=== PATIENT | female | born 1940 | race Caucasian/White ===

== ENCOUNTER 2016-12-19 19:13 | Observation (INO) | payer MEDICARE, OTHER ==
[2016-12-19] MEDS ORDERED: Morphine 2 MG/ML Syringe IVPUSH ONE ×2 (19:45→20:53)
[2016-12-19] MEDS ORDERED: Sodium Chloride 0.9% 10 ML Syringe FLUSH PRN (19:45)
--- NOTE | 2016-12-19 19:51 | EDM.PDOC ---
ED HPI Trauma - General Chief Complaint: Upper Extremity Injury/Pain Stated Complaint: fall, left shoulder pain Time Seen by Provider: 12/19/16 19:22 Source: Reports: Patient, Family, RN, RN notes reviewed History Limitations: Reports: No limitations - History of Present Illness INITIAL COMMENTS - FREE TEXT/NARRATIVE: Patient presents emergency room at [facility] after she fell in her driveway. The patient states she was lifting a tote out of her car, as she turned around to close the car door, she believes that she fell. The patient remembers taking the tote out of the car and closing the door, but then only remembers laying on the ground. The patient denies any head injury. The patient is not sure if she lost any consciousness. The patient states she did fall a couple weeks ago and injured her right shoulder. The patient currently complains of left shoulder pain and left knee pain. The patient is unable to participate in exam of the left shoulder due to 2 significant pain. The patient states she normally ambulates without any problems. The patient does have a history of a left knee replacement.Patient denies any headaches. Patient denies any visual field disturbances. Symptom Onset Date: 12/19/16 Occurred When: just prior to arrival Occurred Where: home Method of Injury: fall Severity: moderate Pain/Injury Location: Reports: upper extremity, left Consciousness: Reports: remembers coming to hosp, unsure Allergies/ADRs: Allergies NSAIDS (Non-Steroidal Anti-Inflamma Adverse Reaction (Verified 12/19/16 19:23) Stomach Upset elevates BP - use sparingly rosuvastatin calcium [From Crestor] Adverse Reaction (Verified 12/19/16 19:23) Muscle Aches Home Medications: Ambulatory Orders Albuterol/Ipratropium [Combivent Respimat] 1 puff INH QID PRN 12/30/13 [ Confirmed 12/19/16] Budesonide/Formoterol [Symbicort 160-4.5 MCG] 2 puff INH BID 12/30/13 [ Confirmed 12/19/16] Clobetasol [Temovate 0.05% Oint] 1 applic TOP BID PRN 12/30/13 [Confirmed ] FLUoxetine [PROzac] 60 mg PO DAILY 12/30/13 [Confirmed 12/19/16] Fluticasone Propionate [Flonase] 2 spray NASBOTH BID 12/30/13 [Confirmed ] Metoprolol Succinate [Toprol XL] 25 mg PO DAILY 12/30/13 [Confirmed 12/19/16] Simvastatin [Zocor] 20 mg PO BEDTIME 12/30/13 [Confirmed 12/19/16] Warfarin [Coumadin] 2.5 mg PO DAILY 12/30/13 [Confirmed 12/19/16] traZODone 100 mg PO BEDTIME 12/30/13 [Confirmed 12/19/16] Aspirin [Halfprin] 81 mg PO DAILY 07/15/15 [Confirmed 12/19/16] Calcium Carbonate [Tums] 1,000 mg PO DAILY PRN 07/15/15 [Confirmed 12/19/16] Calcium Carbonate/Vitamin D3 [Calcium 600-Vit D3 800 Tablet] 1 each PO DAILY 06/19 [Confirmed 12/19/16] Cholecalciferol (Vitamin D3) [Vitamin D3] 5,000 unit PO DAILY 07/15/15 [ Confirmed 12/19/16] Omeprazole 40 mg PO DAILY 07/15/15 [Confirmed 12/19/16] Triamcinolone Acetonide [Kenalog 0.1% Crm] 1 applic TOP BID PRN 07/15/15 [ Confirmed 12/19/16] Triamterene/Hydrochlorothiazid [Triamterene-HCTZ 75-50 MG] 0.5 tab PO DAILY 06/19 [Confirmed 12/19/16] traMADol HCl [Ultram] 50 mg PO Q6H PRN 01/26/16 [Confirmed 12/19/16] Rayne-3 Acid Ethyl Esters [Lovaza] 2 gm PO BID 06/29/16 [Confirmed 12/19/16] Past Medical History HEENT History: Reports: Allergic rhinitis, Cataract Other HEENT History: pinguecula. posterior vitreous detachment. presbyopia. myopia Cardiovascular History: Reports: Arrhythmia, CAD, High cholesterol, Hypertension Other Cardiovascular History: milde diastolic dysfunction. valvular heart disease. chronic anticoagulation. mild diastolic dysfunction. oxygen dependent. 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 pain in joint, shoulder region Neurological History: Reports: None Other Neuro History: ulnar neuropathy, left. numbness of finger. chronic pain syndrome Psychiatric History: Reports: Anxiety, Depression Other Psychiatric History: hx of alcoholism. morbid obesity. insomnia Endocrine/Metabolic History: Reports: Obesity/BMI 30+ Other Endocrine/Metabolic History: impaired fasting glucose Hematologic History: Reports: None Oncologic (Cancer) History: Reports: None Dermatologic History: Reports: None - Past Surgical History Head Surgeries/Procedures: Reports: None HEENT Surgical History: Reports: Cataract surgery Cardiovascular Surgical History: Reports: None Respiratory Surgical History: Reports: None GI Surgical History: Reports: Colonoscopy Other GI Surgeries/Procedures: colon surgery. hemicolectomy (twisted bowel) Female Surgical History: Reports: Hysterectomy, Tubal ligation Other Female Surgeries/Procedures: bladder repair (open) 1996 Endocrine Surgical History: Reports: None Neurological Surgical History: Reports: None Other Neurological Surgeries/Procedures: ulnar nerolysis Musculoskeletal Surgical History: Reports: Knee replacement Other Musculoskeletal Surgeries/Procedures:: breast surgery Oncologic Surgical History: Reports: Biopsy of breast Dermatological Surgical History: Reports: None Social & Family History - Tobacco Use Smoking Status *Q: Former Smoker Years of Tobacco use: 10 Used Tobacco, but Quit: Yes Month Tobacco Last Used: 41 years ago Second Hand Smoke Exposure: Yes - Alcohol Use Days Per Week of Alcohol Use: 0 - Recreational Drug Use Recreational Drug Use: No Review of Systems - Review of Systems Review Of Systems: See Below Constitutional: Denies: chills, fever, weakness Respiratory: Denies: Shortness of Breath, Cough Cardiovascular: Denies: chest pain, palpitations Musculoskeletal: Reports: shoulder pain, joint pain (Left knee), joint swelling (Left knee) Skin: Reports: bruising (Left knee) Neurological: Denies: Headache, Numbness, Paresthesia, Tingling Trauma Exam - Physical Exam Exam: See Below Exam Limited By: No limitations General Appearance: Reports: alert, no apparent distress Head: Reports: atraumatic, normocephalic Eyes: bilateral eye: EOMI, normal inspection, PERRL Ears: Reports: normal external exam, normal canal, hearing grossly normal, normal TMs Nose: Reports: normal inspection, normal mucousa, no blood Throat/Mouth: Reports: Normal inspection, Normal oropharynx, No airway compromise Neck: Reports: non-tender, normal alignment Respiratory Exam: Reports: no respiratory distress, lungs clear, decreased breath sounds Cardiovascular: Reports: regular rate, rhythm Extremities: Reports: bony-point tenderness, pain with movement, tenderness Neurologic: Reports: alert, oriented x 3 Skin: Reports: Normal color, Warm/dry - Jorge Coma Score Best Eye Response (Jorge): (4) open spontaneously Best Verbal Response (Jorge): (5) oriented Best Motor Response ([place]): (6) obeys commands [place] Total: 15 EKG INTERPRETATION EKG Date: 12/19/16 Time: 20:12 Rhythm: NSR Rate (beats/min): 67 [place]: normal P-wave: present QRS: normal ST-T: normal QT: normal [place]/PQ Interval: 0.12 Comparison: NA - no prior EKG EKG Interpretation Comments: 1. Sinus Rhythm with short [place] interval with occasional PVC's Course - Vital Signs Last Recorded V/S: Last Vital Signs Temp 36.2 C 12/19/16 19:25 Pulse 68 12/19/16 21:00 Resp 20 12/19/16 21:00 BP 182/91 H 12/19/16 21:00 Pulse Ox 94 L 12/19/16 21:00 - Orders/Labs/Meds Orders: Active Orders 24 hr Category Date Time Status EKG 12 Lead [EKG Documentation Completion] [RC] STAT Care 12/19/16 19:51 Active Head wo Cont [CT] Stat Exams 12/19/16 19:58 Taken Knee 1V or 2V Lt [CR] Stat Exams 12/19/16 19:42 Taken Shoulder Comp Lt [CR] Stat Exams 12/19/16 19:42 Taken Sodium Chloride 0.9% [Saline Flush] Med 12/19/16 19:45 Active 10 ml FLUSH ASDIRECTED PRN Peripheral IV Insertion Adult [OM.PC] Routine Oth 12/19/16 19:45 Ordered Medication Orders Sodium Chloride (Saline Flush) 10 ml FLUSH ASDIRECTED PRN PRN Reason: Keep Vein Open Meds: Medications Generic Name Dose Route Start Last Admin Trade Name Freq PRN Reason Stop Dose Admin Sodium Chloride 10 ml 12/19/16 19:45 Saline Flush FLUSH ASDIRECTED PRN Keep Vein Open Discontinued Medications Generic Name Dose Route Start Last Admin Trade Name Freq PRN Reason Stop Dose Admin Morphine Sulfate 2 mg 12/19/16 19:45 12/19/16 19:55 Morphine IVPUSH 12/19/16 19:46 2 mg ONETIME ONE Administration Morphine Sulfate 2 mg 12/19/16 20:53 12/19/16 20:58 Morphine IVPUSH 12/19/16 20:54 2 mg ONETIME ONE Administration Departure - Departure Time of Disposition: 21:38 Disposition: Refer to Observation Condition: fair Clinical Impression: Uncontrolled pain Syncope Qualifiers: Syncope type: unspecified Qualified Code(s): R55 - Syncope and collapse Closed head injury without loss of consciousness Qualifiers: Encounter type: initial encounter Qualified Code(s): S09.90XA - Unspecified injury of head, initial encounter Left shoulder pain Qualifiers: Chronicity: acute Qualified Code(s): M25.512 - Pain in left shoulder Left knee pain Qualifiers: Chronicity: acute Qualified Code(s): M25.562 - Pain in left knee - Problem List Review Problem List Initiated/Reviewed/Updated: Yes - My Orders Last 24 Hours: My Active Orders 12/19/16 19:42 Knee 1V or 2V Lt [CR] Stat Shoulder Comp Lt [CR] Stat 12/19/16 19:45 Sodium Chloride 0.9% [Saline Flush] 10 ml FLUSH ASDIRECTED PRN Peripheral IV Insertion Adult [OM.PC] Routine 12/19/16 19:51 EKG 12 Lead [EKG Documentation Completion] [RC] STAT 12/19/16 19:58 Head wo Cont [CT] Stat - Assessment/Plan Admission H&P: Please use this note as an admission H&P Last 24 Hours: My Active Orders 12/19/16 19:42 Knee 1V or 2V Lt [CR] Stat Shoulder Comp Lt [CR] Stat 12/19/16 19:45 Sodium Chloride 0.9% [Saline Flush] 10 ml FLUSH ASDIRECTED PRN Peripheral IV Insertion Adult [OM.PC] Routine 12/19/16 19:51 EKG 12 Lead [EKG Documentation Completion] [RC] STAT 12/19/16 19:58 Head wo Cont [CT] Stat Assessment:: Closed head injury without LOC Syncopal Episode Uncontrolled pain Left shoulder injury Left knee injury Plan: Patient will be admitted observation due to limited ROM of left shoulder; uncontrolled pain, and possible syncopal episode
[2016-12-19] MEDS ORDERED: Non-Formulary Medication 1 Each (Clobetasol 1 APPLIC) TOP PRN (23:17)
[2016-12-19] MEDS ORDERED: Triamcinolone Acetonide 0.1% Crm 15 GM Tube TOP PRN (23:17)
[2016-12-19] MEDS ORDERED: Albuterol/Ipratropium 4 GM Inhalation Spray INH PRN (23:17)
[2016-12-19] MEDS ORDERED: Ondansetron 4 MG Tab.DIS PO PRN (23:20)
[2016-12-19] MEDS ORDERED: Docusate Sodium 100 MG Cap PO PRN (23:20)
[2016-12-19] MEDS ORDERED: Polyethylene Glycol 3350 Powder 17 GM Packet PO PRN (23:20)
[2016-12-19] MEDS ORDERED: Bisacodyl 5 MG Tab PO PRN (23:20)
[2016-12-19] MEDS ORDERED: Acetaminophen 325 MG Tab PO PRN (23:20)
--- NOTE | 2016-12-20 00:22 | PCM.HP ---
H&P History of Present Illness - General Date of Service: 12/19/16 Admit Problem/Dx: Admission Diagnosis/Problem Admission Diagnosis/Problem Syncope Acute fracture of the proximal left humerus at surgical neck; small impaction Uncontrolled pain Left shoulder Pain Source of Information: Patient, Old records, RN, RN notes reviewed History Limitations: Reports: No limitations - History of Present Illness Initial Comments - Free Text/Narative: A 76-year-old white female with a past medical history of hypertension morbid obesity sleep apnea coronary artery disease, admitted to the observation unit at [facility] for a left humeral fracture, syncope, and uncontrolled pain. The patient was seen in the emergency room at [facility] after she sustained a fall at home. According to the patient she was lifting a tote out of her car, and as she was closing the door, she fell to the ground landing on her left side. The patient states she remembers closing the car door but does not remember the fall. The patient states that she did have a similar fall that she does not remember that happened approximately 2 weeks ago. The patient does not think that she hit her head. The patient is unsure of loss of consciousness. The patient does not have any back pain. Patient does not have any neck pain. No focal neurological deficits. The patient did have a CT scan of the head which did not show any intracranial pathology. The patient had an x- ray of her left knee which was normal. The x-ray of the left shoulder showed an acute fracture of the proximal left humerus centered at the surgical neck. Small amount of impaction at the fracture site. No significant displacement. Onset of Symptoms: Reports: sudden Symptom Onset Date: 12/19/16 Location: Reports: upper extremity, left Quality: Reports: Sharp - Related Data Allergies/Adverse Reactions: Allergies Allergy/AdvReac Type Severity Reaction Status Date / Time NSAIDS (Non-Steroidal AdvReac Stomach Verified 12/19/16 19:23 Anti-Inflamma Upset rosuvastatin calcium AdvReac Muscle Verified 12/19/16 19:23 [From Crestor] Aches Home Medications: Home Meds Albuterol/Ipratropium [Combivent Respimat] 1 puff INH QID PRN 12/30/13 [History] Budesonide/Formoterol [Symbicort 160-4.5 MCG] 2 puff INH BID 12/30/13 [History] Clobetasol [Temovate 0.05% Oint] 1 applic TOP BID PRN 12/30/13 [History] FLUoxetine [PROzac] 60 mg PO DAILY 12/30/13 [History] Fluticasone Propionate [Flonase] 2 spray NASBOTH BID 12/30/13 [History] Metoprolol Succinate [Toprol XL] 25 mg PO DAILY 12/30/13 [History] Simvastatin [Zocor] 20 mg PO BEDTIME 12/30/13 [History] Warfarin [Coumadin] 2.5 mg PO DAILY 12/30/13 [History] traZODone 100 mg PO BEDTIME 12/30/13 [History] Aspirin [Halfprin] 81 mg PO DAILY 07/15/15 [History] Calcium Carbonate [Tums] 1,000 mg PO DAILY PRN 07/15/15 [History] Calcium Carbonate/Vitamin D3 [Calcium 600-Vit D3 800 Tablet] 1 each PO DAILY 06/19 [History] Cholecalciferol (Vitamin D3) [Vitamin D3] 5,000 unit PO DAILY 07/15/15 [History] Omeprazole 40 mg PO ACBREAKFAST 07/15/15 [History] Triamcinolone Acetonide [Kenalog 0.1% Crm] 1 applic TOP BID PRN 07/15/15 [ History] Triamterene/Hydrochlorothiazid [Triamterene-HCTZ 75-50 MG] 0.5 tab PO DAILY 06/19 [History] traMADol HCl [Ultram] 50 mg PO Q6H PRN 01/26/16 [History] Sharon-3 Acid Ethyl Esters [Lovaza] 2 gm PO BIDMEALS 06/29/16 [History] Past Medical History HEENT History: Reports: Allergic rhinitis, Cataract Other HEENT History: pinguecula. posterior vitreous detachment. presbyopia. myopia Cardiovascular History: Reports: Arrhythmia, CAD, High cholesterol, Hypertension Other Cardiovascular History: milde diastolic dysfunction. valvular heart disease. chronic anticoagulation. mild diastolic dysfunction. oxygen dependent. 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 pain in joint, shoulder region Neurological History: Reports: None Other Neuro History: ulnar neuropathy, left. numbness of finger. chronic pain syndrome Psychiatric History: Reports: Anxiety, Depression Other Psychiatric History: hx of alcoholism. morbid obesity. insomnia Endocrine/Metabolic History: Reports: Obesity/BMI 30+ Other Endocrine/Metabolic History: impaired fasting glucose Hematologic History: Reports: None Immunologic History: Reports: None Oncologic (Cancer) History: Reports: None Dermatologic History: Reports: None - Past Surgical History Head Surgeries/Procedures: Reports: None HEENT Surgical History: Reports: Cataract surgery Cardiovascular Surgical History: Reports: None Respiratory Surgical History: Reports: None GI Surgical History: Reports: Colonoscopy Other GI Surgeries/Procedures: colon surgery. hemicolectomy (twisted bowel) Female Surgical History: Reports: Hysterectomy, Tubal ligation Other Female Surgeries/Procedures: bladder repair (open) 1996 Endocrine Surgical History: Reports: None Neurological Surgical History: Reports: None Other Neurological Surgeries/Procedures: ulnar nerolysis Musculoskeletal Surgical History: Reports: Knee replacement Other Musculoskeletal Surgeries/Procedures:: breast surgery Oncologic Surgical History: Reports: Biopsy of breast Dermatological Surgical History: Reports: None Social & Family History - Family History Family Medical History: Noncontributory - Tobacco Use Smoking Status *Q: Former Smoker Years of Tobacco use: 10 Used Tobacco, but Quit: Yes Month Tobacco Last Used: 40 years Second Hand Smoke Exposure: Yes - Caffeine Use Caffeine Use: Reports: Coffee, Soda - Alcohol Use Days Per Week of Alcohol Use: 0 - Recreational Drug Use Recreational Drug Use: No H&P Review of Systems - Review of Systems: Review Of Systems: See Below General: Reports: weakness. Denies: fever, chills Pulmonary: Denies: Shortness of Breath, Cough Cardiovascular: Denies: chest pain, palpitations Gastrointestinal: Denies: Abdominal pain, Nausea, Vomiting Musculoskeletal: Reports: shoulder pain, arm pain Skin: Reports: no symptoms Neurological: Denies: Dizziness, Headache, Numbness, Paresthesia, Tingling Exam - Exam Exam: See Below - Vital Signs Vital Signs: Last Vital Signs Temp 36.2 C 12/19/16 19:25 Pulse 68 12/19/16 21:00 Resp 20 12/19/16 21:00 BP 182/91 H 12/19/16 21:00 Pulse Ox 94 L 12/19/16 21:00 Weight: 130.181 kg - Exam General: alert, oriented Neck: supple Lungs: Clear to auscultation, Normal respiratory effort, Decreased breath sounds Cardiovascular: regular rate, regular rhythm, normal S1, normal S2 Abdomen: soft, hypoactive bowel sounds Extremities: normal inspection, normal pulses, other (unable to fully assess LUE due to pain) Peripheral Pulses: 2+: radial (L), radial (R) Skin: warm, dry, intact Neurological: sensation intact Neuro Extensive - Mental Status: alert, oriented x3 *Q Meaningful Use (ADM) - VTE *Q VTE Criteria *Q: VTE Mechanical Contraindications *Q: At Risk for Falls - VTE Risk Assess *Q Each Risk Factor Represents 3 Points: Age 75 Years or Greater Total Score 3 Point Risk Factors: 3 - Stroke *Q Stroke Criteria *Q: - AMI *Q AMI Criteria *Q: - Problem List (1) Syncope SNOMED Code(s): 778483387 ICD Code: R55 - SYNCOPE AND COLLAPSE Status: Acute Priority: High Current Visit: Yes Onset Date: ~12/19/16 Qualifiers: Syncope type: unspecified Qualified Code(s): R55 - Syncope and collapse (2) Humerus surgical neck fracture SNOMED Code(s): 405266074 ICD Code: S42.213A - UNSP DISP FX OF SURGICAL NECK OF UNSP HUMERUS, INIT Status: Acute Priority: High Current Visit: Yes Onset Date: ~12/19/16 Qualifiers: Encounter type: initial encounter Fracture type: closed Fracture morphology: unspecified fracture morphology Fracture alignment: nondisplaced Laterality: left Qualified Code(s): S42.215A - Unspecified nondisplaced fracture of surgical neck of left humerus, initial encounter for closed fracture (3) Uncontrolled pain SNOMED Code(s): 50840670739401171 ICD Code: R52 - PAIN, UNSPECIFIED Status: Acute Priority: Medium Current Visit: Yes Onset Date: ~12/19/16 Problem List Initiated/Reviewed/Updated: Yes Orders Last 24hrs: Active Orders 24 hr Category Date Time Status Patient Status [ADT] Routine ADT 12/19/16 23:20 Active Ambulate [RC] ASDIRECTED Care 12/19/16 23:20 Active Intake and Output [RC] 06,18 Care 12/19/16 23:21 Active May Shower [RC] .PRN Care 12/19/16 23:20 Active Oxygen Therapy [RC] PRN Care 12/19/16 23:20 Active VTE/DVT Education [RC] .PRN Care 12/19/16 23:20 Active Vital Signs [RC] 06,10,14,18,22,02 Care 12/19/16 23:20 Active Consult to Case Management [CONS] Routine Cons 12/19/16 23:26 Active Consult to Occupational Therapy [OT Evaluation and Cons 12/19/16 23:26 Active Treatment] [CONS] Routine Consult to Physical Therapy [PT Evaluation and Cons 12/19/16 23:25 Active Treatment] [CONS] Routine 2 Gram Sodium Diet [DIET] Diet 12/19/16 Breakfast Active UA W/MICROSCOPIC [URIN] Routine Lab 12/19/16 20:15 Ordered Acetaminophen [Tylenol] Med 12/19/16 23:20 Ordered 650 mg PO Q4H PRN Albuterol/Ipratropium [Combivent Respimat] Med 12/19/16 23:17 Active 0 gm INH QID PRN Aspirin [Halfprin] Med 12/20/16 08:00 Ordered 81 mg PO DAILY Bisacodyl [Dulcolax] Med 12/19/16 23:20 Ordered 5 mg PO DAILY PRN Budesonide/Formoterol Med 12/20/16 08:00 Ordered 2 puff INH BID Clobetasol Med 12/19/16 23:17 Pending 1 applic TOP BID PRN Docusate Sodium [Colace] Med 12/19/16 23:20 Ordered 100 mg PO BID PRN FLUoxetine [PROzac] Med 12/20/16 08:00 Active 60 mg PO DAILY Fluticasone Propionate [Flonase] Med 12/20/16 08:00 Active 0 gm NASBOTH BID Metoprolol Succinate [Toprol XL] Med 12/20/16 08:00 Active 25 mg PO DAILY Morphine Med 12/19/16 23:20 Ordered 2 mg IVPUSH Q4H PRN Omeprazole [Omeprazole] Med 12/20/16 07:00 Ordered 40 mg PO ACBREAKFAST Ondansetron [Zofran ODT] Med 12/19/16 23:20 Ordered 4 mg PO Q6H PRN Polyethylene Glycol 3350 [MiraLAX] Med 12/19/16 23:20 Ordered 17 gm PO DAILY PRN Simvastatin [Zocor] Med 12/20/16 20:00 Ordered 20 mg PO BEDTIME Triamcinolone Acetonide [Kenalog 0.1% Crm] Med 12/19/16 23:17 Ordered 1 applic TOP BID PRN Triamterene/Hydrochlorothiazid [Triamterene-HCTZ 75-50 Med 12/20/16 08:00 Ordered MG] 0.5 tab PO DAILY Warfarin [Coumadin] Med 12/19/16 23:30 Ordered 2.5 mg PO DAILY traMADol [Ultram] Med 12/19/16 23:17 Ordered 50 mg PO Q6H PRN traZODone Med 12/20/16 20:00 Active 100 mg PO BEDTIME Resuscitation Status Routine Resus Stat 12/19/16 23:20 Ordered Medication Orders Acetaminophen (Tylenol) 650 mg PO Q4H PRN PRN Reason: Pain (Mild 1-3)/fever Albuterol/Ipratropium (Combivent Respimat) 0 gm INH QID PRN PRN Reason: SOB,wheezing,cough Bisacodyl (Dulcolax) 5 mg PO DAILY PRN PRN Reason: Constipation Docusate Sodium (Colace) 100 mg PO BID PRN PRN Reason: Constipation Fluoxetine HCl (Prozac) 60 mg PO DAILY IRLANDA Fluticasone Propionate (Flonase) 0 gm NASBOTH BID IRLANDA Metoprolol Succinate (Toprol Xl) 25 mg PO DAILY IRLANDA Morphine Sulfate (Morphine) 2 mg IVPUSH Q4H PRN PRN Reason: Pain (severe 7-10) Non-Formulary Medication (Aspirin [Halfprin]) 81 mg PO DAILY IRLANDA Non-Formulary Medication (Budesonide/Formoterol) 2 puff INH BID IRLANDA Non-Formulary Medication (Clobetasol) 1 applic TOP BID PRN PRN Reason: sores Non-Formulary Medication (Omeprazole [Omeprazole]) 40 mg PO ACBREAKFAST IRLANDA Non-Formulary Medication (Simvastatin [Zocor]) 20 mg PO BEDTIME IRLANDA Non-Formulary Medication (Triamcinolone Acetonide [Kenalog 0.1% Crm]) 1 applic TOP BID PRN PRN Reason: Rash Non-Formulary Medication (Triamterene/Hydrochlorothiazid [Triamterene-Hctz 75- 50 Mg]) 0.5 tab PO DAILY IRLANDA Non-Formulary Medication (Warfarin [Coumadin]) 2.5 mg PO DAILY [facility] Ondansetron HCl (Zofran Odt) 4 mg PO Q6H PRN PRN Reason: nausea, able to take PO Polyethylene Glycol (Miralax) 17 gm PO DAILY PRN PRN Reason: Constipation Sodium Chloride (Saline Flush) 10 ml FLUSH ASDIRECTED PRN PRN Reason: Keep Vein Open Tramadol HCl (Ultram) 50 mg PO Q6H PRN PRN Reason: Pain Trazodone HCl (Trazodone) 100 mg PO BEDTIME [facility] Assessment/Plan Comment:: 76-year-old white female with a past medical history of hypertension, coronary artery disease, morbid obesity, and sleep apnea, is being admitted to the observation unit at [facility] after she sustained a left humeral fracture secondary to a syncopal episode. Per the patient's wishes she is a full code. Should the need arise the patient would like to be transferred a higher level of care if needed. We will consult physical and occupational therapy further assistance. The patient will be given by mouth pain medication as needed. Saline lock will be placed. This case was discussed with Dr. Bi Faulkner, Orthopedics. Recommendation made to place the left shoulder in a sling and swath. The patient may ambulate as usual without any restrictions. Patient is to followup with orthopedics in the next 7-10 days to ensure proper healing and placement of the left humerus.
[2016-12-20] MEDS: Warfarin 2.5 MG Tab PO SCH ×2 (00:31→09:29)
[2016-12-20] MEDS: traMADol 50 MG Tab PO PRN ×2 (00:34→19:53)
[2016-12-20] MEDS: traZODone 50 MG Tab PO SCH ×2 (00:47→19:54)
[2016-12-20] MEDS: Morphine 2 MG/ML Syringe IVPUSH PRN ×2 (03:17→09:37)
[2016-12-20] MEDS: Omeprazole 20 MG Cap.CR PO SCH (06:17)
[2016-12-20] MEDS: Formoterol/Mometasone 200-5 MCG 8.8 GM Inhaler IH SCH ×2 (06:17→19:54)
[2016-12-20] MEDS ORDERED: Albuterol/Ipratropium 3.0-0.5 MG/3 ML Neb Soln NEB PRN (08:25)
[2016-12-20] MEDS: FLUoxetine 20 MG Cap PO SCH (09:28)
[2016-12-20] MEDS: Aspirin 81 MG Tab.EC PO SCH (09:29)
[2016-12-20] MEDS: Hydrochlorothiazide/Triamterene 25-37.5 Tab PO SCH (09:29)
[2016-12-20] MEDS: Metoprolol Succinate 25 MG Tab.ER PO SCH (09:32)
[2016-12-20] MEDS: Fluticasone Propionate Nasal Spray 16 GM Bottle NASBOTH SCH ×2 (09:33→19:54)
--- NOTE | 2016-12-20 11:00 | PCM.PN ---
- General Info Date of Service: 12/20/16 Admission Dx/Problem (Free Text): Admission Diagnosis/Problem Admission Diagnosis/Problem Syncope Acute fracture of the proximal left humerus at surgical neck; small impaction Uncontrolled pain Left shoulder Pain Subjective Update: Patient complains of pain to left upper arm/shoulder of 7-8/10. No other complaints. Functional Status: Reports: tolerating diet. Denies: new symptoms - Review of Systems General: Reports: No Symptoms HEENT: Reports: no symptoms Pulmonary: Reports: no symptoms Cardiovascular: Reports: No Symptoms Gastrointestinal: Reports: No symptoms Genitourinary: Reports: no symptoms Musculoskeletal: Reports: shoulder pain (left), arm pain (left upper) Skin: Reports: bruising (left hip) Neurological: Reports: No Symptoms Psychiatric: Reports: no symptoms - Patient Data Vitals - most recent: Last Vital Signs Temp 36.5 C 12/20/16 06:00 Pulse 68 12/20/16 09:32 Resp 18 12/20/16 06:00 BP 114/56 L 12/20/16 09:32 Pulse Ox 94 L 12/20/16 06:39 Weight - most recent: 130.181 kg I&O - last 24 hours: Intake & Output 12/19/16 12/20/16 12/20/16 22:59 06:59 14:59 Intake Total 700 Output Total 300 Balance 400 Med Orders - Current: Current Medications Acetaminophen (Tylenol) 650 mg PO Q4H PRN PRN Reason: Pain (Mild 1-3)/fever Hydrocodone Bitart/Acetaminophen ([place] 325-10 Mg) 1 tab PO Q4H PRN PRN Reason: Pain Albuterol/Ipratropium (Combivent Respimat) 0 gm INH QID PRN PRN Reason: SOB,wheezing,cough Albuterol/Ipratropium (Duoneb 3.0-0.5 Mg/3 Ml) 3 ml NEB QIDRT PRN PRN Reason: SOB/WHEEZING Aspirin (Halfprin) 81 mg PO DAILY [facility] Last Admin: 12/20/16 09:29 Dose: 81 mg Bisacodyl (Dulcolax) 5 mg PO DAILY PRN PRN Reason: Constipation Docusate Sodium (Colace) 100 mg PO BID PRN PRN Reason: Constipation Fluoxetine HCl (Prozac) 60 mg PO DAILY [facility] Last Admin: 12/20/16 09:28 Dose: 60 mg Fluticasone Propionate (Flonase) 0 gm NASBOTH BID [facility] Last Admin: 12/20/16 09:33 Dose: Not Given Metoprolol Succinate (Toprol Xl) 25 mg PO DAILY [facility] Last Admin: 12/20/16 09:32 Dose: 25 mg Mometasone Furoate/Formoterol Fumar (Dulera 200-5 Mcg) 0 puff IH BIDRT [facility] Last Admin: 12/20/16 06:17 Dose: 2 inhalation Non-Formulary Medication (Clobetasol) 1 applic TOP BID PRN PRN Reason: sores Omeprazole (Omeprazole) 40 mg PO ACBREAKFAST [facility] Last Admin: 12/20/16 06:17 Dose: 40 mg Ondansetron HCl (Zofran Odt) 4 mg PO Q6H PRN PRN Reason: nausea, able to take PO Polyethylene Glycol (Miralax) 17 gm PO DAILY PRN PRN Reason: Constipation Simvastatin (Zocor) 20 mg PO BEDTIME [facility] Sodium Chloride (Saline Flush) 10 ml FLUSH ASDIRECTED PRN PRN Reason: Keep Vein Open Tramadol HCl (Ultram) 50 mg PO Q6H PRN PRN Reason: Pain Last Admin: 12/20/16 00:34 Dose: 50 mg Trazodone HCl (Trazodone) 100 mg PO BEDTIME [facility] Last Admin: 12/20/16 00:47 Dose: 100 mg Triamcinolone Acetonide (Triamcinolone Acetonide 0.1% Crm) 0 gm TOP BID PRN PRN Reason: Rash Triamterene/HCTZ (Maxzide 25-37.5 Mg) 1 each PO DAILY [facility] Last Admin: 12/20/16 09:29 Dose: 1 each Warfarin Sodium (Coumadin) 2.5 mg PO DAILY [facility] Last Admin: 12/20/16 09:29 Dose: 2.5 mg Discontinued Medications Morphine Sulfate (Morphine) 2 mg IVPUSH ONETIME ONE Stop: 12/19/16 19:46 Last Admin: 12/19/16 19:55 Dose: 2 mg Morphine Sulfate (Morphine) 2 mg IVPUSH ONETIME ONE Stop: 12/19/16 20:54 Last Admin: 12/19/16 20:58 Dose: 2 mg Morphine Sulfate (Morphine) 2 mg IVPUSH Q4H PRN PRN Reason: Pain (severe 7-10) Last Admin: 12/20/16 09:37 Dose: 2 mg - Exam General: alert, oriented, cooperative, mild distress HEENT: Pupils equal, Pupils reactive, EOMI Neck: supple Lungs: Clear to auscultation, Normal respiratory effort Cardiovascular: Regular Rate, Regular Rhythm Abdomen: bowel sounds present, soft, no tenderness, no distension Extremities: no edema Peripheral Pulses: 2+: posterior tibial (L), posterior tibial (R), dorsalis pedis (L), dorsalis pedis (R) Skin: warm, dry, intact Neurological: no new focal deficit Psy/Mental Status: alert, normal affect, normal mood - Problem List & Annotations (1) Humerus surgical neck fracture SNOMED Code(s): 046736692 Code(s): S42.213A - UNSP DISP FX OF SURGICAL NECK OF UNSP HUMERUS, INIT Status: Acute Priority: High Current Visit: Yes Onset Date: ~12/19/16 Qualifiers: Encounter type: subsequent encounter Fracture type: closed Fracture morphology: unspecified fracture morphology Fracture alignment: nondisplaced Laterality: left Fracture healing: with routine healing Qualified Code(s) : S42.215D - Unspecified nondisplaced fracture of surgical neck of left humerus , subsequent encounter for fracture with routine healing - Problem List Review Problem List Initiated/Reviewed/Updated: Yes - My Orders Last 24 Hours: My Active Orders 12/20/16 10:45 Acetaminophen/HYDROcodone [[place] 325-10 MG] 1 tab PO Q4H PRN 12/20/16 10:48 BMP [BASIC METABOLIC PANEL,BMP] [CHEM] Routine - Plan Plan:: 76-year-old white female with a past medical history of hypertension, coronary artery disease, morbid obesity, and sleep apnea, is being admitted to the observation unit at [facility] after she sustained a left humeral fracture secondary to a syncopal episode. Per the patient's wishes she is a full code. Should the need arise the patient would like to be transferred a higher level of care if needed. We will consult physical and occupational therapy further assistance. The patient will be given by mouth pain medication as needed. Saline lock will be placed. This case was discussed with Dr. Bi Faulkner, Orthopedics. Recommendation made to place the left shoulder in a sling and swath. The patient may ambulate as usual without any restrictions. Patient is to followup with orthopedics in the next 7-10 days to ensure proper healing and placement of the left humerus. Continue with above plan per Osito Odonnell. Physical therapy to see today, fit in sling and swath. Recommend OT and social services counselor consult as well. Needs to have pain controlled before discharge. Started on Hydrocodone
[2016-12-20] MEDS: Acetaminophen/HYDROcodone 325-10 MG Tab PO PRN ×2 (11:23→16:10)
[2016-12-20 11:30] LABS: CHLORIDE,CL 101 mmol/L (98-107); SODIUM,NA 137 mmol/L (136-145)
[2016-12-20] MEDS ORDERED: Simvastatin 20 MG Tab PO SCH (20:00)
[2016-12-21] MEDS: Acetaminophen/HYDROcodone 325-10 MG Tab PO PRN ×2 (01:40→14:26)
[2016-12-21] MEDS: Omeprazole 20 MG Cap.CR PO SCH (06:43)
[2016-12-21] MEDS: Formoterol/Mometasone 200-5 MCG 8.8 GM Inhaler IH SCH (06:44)
[2016-12-21] MEDS: FLUoxetine 20 MG Cap PO SCH (07:50)
[2016-12-21] MEDS: Hydrochlorothiazide/Triamterene 25-37.5 Tab PO SCH (07:51)
[2016-12-21] MEDS: Warfarin 2.5 MG Tab PO SCH (07:52)
[2016-12-21] MEDS: Fluticasone Propionate Nasal Spray 16 GM Bottle NASBOTH SCH (07:55)
[2016-12-21] MEDS: Metoprolol Succinate 25 MG Tab.ER PO SCH (08:13)
[2016-12-21] MEDS: Aspirin 81 MG Tab.EC PO SCH (08:14)
[2016-12-21] MEDS: traMADol 50 MG Tab PO PRN (08:19)
--- NOTE | 2016-12-21 12:21 | PN ---
Progress Note for MEME SHEPPARD Date: 12/21/2016 Room #: VM.217 SUBJECTIVE: The patient was hospitalized Tuesday evening with a fracture to her left proximal humerus. The patient fell on her driveway. She did have a CT scan of the shoulder as well as her head, and there was evidence of a nondisplaced fracture to the humerus. The patient does live alone and has not been able to have an OT consult due to the hol. Orthopedics has been consulted, and she is scheduled for an Orthopedics Consult. They did review the films and are hoping that the fracture will heal without surgical intervention. She is in a sling. The patient's pain is well tolerated with [place] 10/325 every 4 hours and tramadol as needed for pain. The patient has not had an OT consult and occupational therapy does not come back to her facility until tomorrow. PHYSICAL EXAMINATION: General: This is a 76-year-old female patient, who is in no acute distress. Vital Signs: Blood pressure is 120/61, pulse rate 78, temperature is 36.6, O2 saturations 96% on room air. Skin: Warm, pale, and dry. HEENT: Mouth, oral mucosa is moist. Lungs: Clear to auscultation. Heart: Regular rate and rhythm. Abdomen: Soft and nontender. It is obese. Musculoskeletal: She does have point tenderness to the left proximal humerus. Her christian science nurse strength is approximately 3/5 in her left hand and 4/5 in her right hand. Neurovascular: Circulation, sensation, and motor function are all within normal limits in the distal portion of the affected extremity. ASSESSMENT: Left proximal humerus fracture. PLAN: Anticipate discharge after OT evaluation tomorrow. Decision will be made as to whether the patient can go home with home health versus swing bed admission or transitional care admission at [facility]. We will continue with current pain regimen. The patient states that she does sleep a lot at home. We will work on having her ambulate around the floor some more today to build up her strengths as she will require this when she goes home. All questions were answered. The patient will need to go acute today as she will be at her 48-hour nighat for observation admission this evening. MWK: 12/21/2016 11:31:19 MODL: 12/21/2016 11:53:53 /[id number]
[2016-12-21] MEDS ORDERED: TEMOVATE 0.05% TOP PRN (12:49)
[2016-12-21 15:02] VITALS: BP 158/86
--- NOTE | 2016-12-22 08:48 | DISCH ---
ADMITTING PROVIDER: JIM Gore. DISCHARGING PROVIDER: Nick Loya PA-C. ADMITTING DIAGNOSIS: Left proximal humerus fracture. HISTORY OF PRESENT ILLNESS: The patient was admitted on the evening of 12/19/2016 following a fall and left proximal humerus fracture. She also did strike her head and did have a CT scan performed which was negative for acute pathology. She was started on tramadol and [place] for pain control and was placed in a sling. Orthopedics was consulted and the plan is for the patient to follow up with them next week. Overall, patient has done well and her pain is well controlled. She has seen physical therapy several times since her admission. Her plan is to have family member stay with her during this acute injury to help her with her activities for daily living. PHYSICAL EXAMINATION: General: This is a 76-year-old female patient, who is in no acute distress. Vital Signs: Blood pressure is 120/61, pulse rate is 78, temp is 99.2, respiratory rate 18, O2 saturation is 95%. Skin: Warm, pink, and dry. Mouth, oral mucosa is moist. Lungs: Clear to auscultation. Heart: Regular rate and rhythm. Abdomen: Soft, nontender. Musculoskeletal: She does have point tenderness to the left proximal humerus. No obvious step-offs or deformity noted. LABORATORY DATA: This morning, WBC is 10.4, hemoglobin is 12.2, platelets are 183. PT is 39.3, INR is 3.5. Sodium is 135, potassium is 3.6, chloride is 99, bicarb is 31, BUN is 17, creatinine is 1.0, creatinine clearance is 37.85. GFR is 54. Glucose is 87, calcium is 8.1, corrected calcium is 8.82, total bilirubin is 0.5, AST is 19, ALT is 34, alkaline phosphatase is 86. DISCHARGE DIAGNOSIS: Left proximal humerus fracture. DISPOSITION: Home in care of family. FOLLOWUP: With [facility]. Please refer to discharge paperwork regarding this. DISCHARGE MEDICATIONS: Continue with home medications. We will add [place] 10/325 with instructions to take 1-2 every 4-6 hours as needed for pain. Also tramadol 50 mg every 4 hours as needed for pain. Home health will also consult with the patient. MWK: 12/21/2016 17:04:54 MODL: 12/21/2016 22:33:33 /[id number]
== END 2016-12-21 17:00 | disposition home or self-care (01) ==
LOC: VM.ED 19:13 → VM.MS 21:37
PROVIDERS: ADMIT Nurse Practitioner Family; ATTEND Nurse Practitioner Family
DX: R55 Syncope and collapse (principal); S42.215A Unspecified nondisplaced fracture of surgical neck of left humerus, initial encounter for closed fracture; R52 Pain, unspecified; Z79.82 Long term (current) use of aspirin; Z79.899 Other long term (current) drug therapy; Z79.01 Long term (current) use of anticoagulants; I25.10 Atherosclerotic heart disease of native coronary artery without angina pectoris; I10 Essential (primary) hypertension; E78.00 Pure hypercholesterolemia, unspecified; K21.9 Gastro-esophageal reflux disease without esophagitis; F41.8 Other specified anxiety disorders; G47.30 Sleep apnea, unspecified; E66.9 Obesity, unspecified; Z90.710 Acquired absence of both cervix and uterus; Z98.890 Other specified postprocedural states; Z98.51 Tubal ligation status; Z90.49 Acquired absence of other specified parts of digestive tract; Z96.659 Presence of unspecified artificial knee joint; Z87.891 Personal history of nicotine dependence; Z88.8 Allergy status to other drugs, medicaments and biological substances
CPT/HCPCS: 36415; 70450; 73030; 73560; 80048; 80053; 81001; 85025; 85610; 93005; 94760; 96374; 96376; 97161; 97530; 99219; 99285; A9270; J2270; 96375; 99217; 99224; 99284-GF; G0378

== ENCOUNTER 2019-01-16 09:57 | Inpatient (IN) | payer MEDICARE, OTHER ==
--- NOTE | 2019-01-16 10:56 | CR ---
[id number] RAD/RAD Ankle Right 2V EXAM: 2 VIEWS RIGHT ANKLE. INDICATION: ANKLE PAIN. COMPARISON: None. DISCUSSION: No fracture, dislocation or other acute osseous abnormality. Moderate plantar calcaneal spur. Enthesopathic change at the Achilles insertion. Moderate degenerative changes of the right foot. There appears to be old avulsion fracture of the distal medial malleolus. IMPRESSION: 1. No acute osseous abnormalities. Kd Jama DO 01/16/19 1056 Thank you for allowing us to participate in the care of your patient.
[2019-01-16 11:02] LABS: CHLORIDE,CL 98 mmol/L (98-107); SODIUM,NA 135 mmol/L (136-145)
[2019-01-16 11:03] LABS: ANION GAP 13.8 mmol/L (10-20)
[2019-01-16] MEDS ORDERED: ceFAZolin 1 GM Vial IVPUSH ONE (11:18)
--- NOTE | 2019-01-16 11:25 | EDM.PDOC ---
ED HPI GENERAL MEDICAL PROBLEM - General Chief Complaint: Lower Extremity Injury/Pain Stated Complaint: R ankle pain/redness, chills Time Seen by Provider: 01/16/19 10:00 Source of Information: Reports: Patient, EMS History Limitations: Reports: No Limitations - History of Present Illness INITIAL COMMENTS - FREE TEXT/NARRATIVE: Pt. presents to ER with complaints of R ankle pain, swelling, and chills. She states that the onset of the discomfort was gradual in nature. She states that the pain started approx. 2 days ago and she noted some redness and swelling to the area yesterday. She states that the discomfort gut much worse overnight and this AM it was exquisitely tender and she was unable to bear weight. EMS was called. Pt. denies any trauma to the extremity. Denies any falls. She states that she did feel chilled last night and this AM. Denies any chest pain or shortness of breath. No abdominal pain. Onset: Today Onset Date: 01/16/19 Location: Reports: Lower Extremity, Right Quality: Reports: Throbbing - Related Data Allergies Allergy/AdvReac Type Severity Reaction Status Date / Time NSAIDS (Non-Steroidal AdvReac Stomach Verified 01/16/19 12:04 Anti-Inflamma Upset rosuvastatin calcium AdvReac Muscle Verified 01/16/19 12:04 [From Crestor] Aches Home Meds: Home Meds Budesonide/Formoterol [Symbicort 160-4.5 MCG] 2 puff INH BID 12/30/13 [History] Clobetasol [Temovate 0.05% Oint] 1 applic TOP BID PRN 12/30/13 [History] FLUoxetine [PROzac] 60 mg PO DAILY 12/30/13 [History] Fluticasone Propionate [Flonase] 1 spray NASBOTH BID 12/30/13 [History] Metoprolol Succinate [Toprol XL] 25 mg PO DAILY 12/30/13 [History] Simvastatin [Zocor] 20 mg PO BEDTIME 12/30/13 [History] Warfarin [Coumadin] 2.5 mg PO DAILY 12/30/13 [History] traZODone 100 mg PO BEDTIME 12/30/13 [History] Aspirin [Halfprin] 81 mg PO BEDTIME 07/15/15 [History] Calcium Carbonate/Vitamin D3 [Calcium 600-Vit D3 800 Caplet] 1 each PO DAILY 06/19 [History] Cholecalciferol (Vitamin D3) [Vitamin D3] 5,000 unit PO DAILY 07/15/15 [History] Omeprazole 40 mg PO ACBREAKFAST 07/15/15 [History] [place]-3 Acid Ethyl Esters [Lovaza] 2 cap PO BIDMEALS 06/29/16 [History] Triamcinolone Acetonide [Triamcinolone Acetonide 0.1% Oint] 1 applic TOP BID PRN 12/20/16 [History] Past Medical History HEENT History: Reports: Allergic Rhinitis, Cataract Other HEENT History: pinguecula. posterior vitreous detachment. presbyopia. myopia Cardiovascular History: Reports: Arrhythmia, CAD, High Cholesterol, Hypertension Other Cardiovascular History: milde diastolic dysfunction. valvular heart disease. chronic anticoagulation. mild diastolic dysfunction. oxygen dependent. chronic atrial fibrillation Respiratory History: Reports: Sleep Apnea Other Respiratory History: dyspnea on exertion Gastrointestinal History: Reports: GERD Other Gastrointestinal History: family hx colon cancer Genitourinary History: Reports: None EXECUTIVE SOUS CHEF History: Reports: None Musculoskeletal History: Reports: Arthritis, Osteoarthritis Other Musculoskeletal History: low back pain. pain in joint, shoulder region Neurological History: Reports: None Other Neuro History: ulnar neuropathy, left. numbness of finger. chronic pain syndrome Psychiatric History: Reports: Anxiety, Depression Other Psychiatric History: hx of alcoholism. morbid obesity. insomnia Endocrine/Metabolic History: Reports: Obesity/BMI 30+ Other Endocrine/Metabolic History: impaired fasting glucose Hematologic History: Reports: None Immunologic History: Reports: None Oncologic (Cancer) History: Reports: None Dermatologic History: Reports: None - Past Surgical History HEENT Surgical History: Reports: Cataract Surgery Female Surgical History: Reports: Hysterectomy, Tubal Ligation Musculoskeletal Surgical History: Reports: Knee Replacement Oncologic Surgical History: Reports: Biopsy of Breast Social & Family History - Family History Family Medical History: Noncontributory - Caffeine Use Caffeine Use: Reports: Coffee, Soda ED ROS GENERAL - Review of Systems Review Of Systems: See Below Constitutional: Reports: No Symptoms HEENT: Reports: No Symptoms Respiratory: Reports: No Symptoms Cardiovascular: Reports: No Symptoms Endocrine: Reports: No Symptoms GI/Abdominal: Reports: No Symptoms : Reports: No Symptoms Musculoskeletal: Reports: Joint Pain (Medial R ankle pain) Skin: Reports: Erythema (R ankle) Neurological: Reports: No Symptoms Psychiatric: Reports: No Symptoms Hematologic/Lymphatic: Reports: No Symptoms Immunologic: Reports: No Symptoms ED EXAM, GENERAL - Physical Exam Exam: See Below Exam Limited By: No Limitations General Appearance: Alert, WD/WN, No Apparent Distress Nose: Normal Inspection, Normal Mucosa, No Blood Respiratory/Chest: No Respiratory Distress, Lungs Clear, Normal Breath Sounds, No Accessory Muscle Use, Chest Non-Tender Cardiovascular: Normal Peripheral Pulses, No Edema, No Gallop, No JVD, Irregularly Irregular Peripheral Pulses: 3+: Posterior Tibial (L), Posterior Tibial (R), Dorsalis Pedis (L), Dorsalis Pedis (R) GI/Abdominal: Normal Bowel Sounds, Soft, Non-Tender, No Organomegaly, No Distention (Female) Exam: Deferred Rectal (Female) Exam: Deferred Back Exam: Normal Inspection, Full Range of Motion Extremities: Joint Swelling, Limited Range of Motion Neurological: Alert, Oriented, CN II-XII Intact, Normal Cognition, Normal Gait Psychiatric: Normal Affect, Normal Mood Skin Exam: Warm, Dry, Intact, Pallor Course - Vital Signs Last Recorded V/S: Last Vital Signs Temp 36.7 C 01/16/19 12:15 Pulse 66 01/16/19 12:15 Resp 20 01/16/19 12:15 BP 143/62 H 01/16/19 12:15 Pulse Ox 94 L 01/16/19 12:15 - Orders/Labs/Meds Orders: Active Orders 24 hr Category Date Time Status CULTURE BLOOD [BC] Stat Lab 01/16/19 10:30 Received CULTURE BLOOD [BC] Stat Lab 01/16/19 10:35 Received Sodium Chloride 0.9% [Saline Flush] Med 01/16/19 10:13 Active 10 ml FLUSH ASDIRECTED PRN Blood Culture x2 Reflex Set [OM.PC] Stat Oth 01/16/19 10:15 Ordered Peripheral IV Insertion Adult [OM.PC] Routine Oth 01/16/19 10:13 Ordered Medication Orders Colchicine (Colcrys) 0.6 mg PO BID IRLANDA Stop: 01/17/19 23:59 Cefazolin Sodium 1 gm/ Sodium (Chloride) 100 mls @ 400 mls/hr IV Q8H IRLANDA Sodium Chloride (Saline Flush) 10 ml FLUSH ASDIRECTED PRN PRN Reason: Keep Vein Open Sodium Chloride (Saline Flush) 10 ml FLUSH ASDIRECTED PRN PRN Reason: Keep Vein Open Tramadol HCl (Ultram) 50 mg PO Q6H PRN PRN Reason: Pain Labs: Laboratory Tests 01/16/19 01/16/19 01/16/19 Range/Units 10:30 10:30 10:30 WBC 11.4 H (4.0-10.0) x10^3/uL RBC 4.03 (4.00-5.50) x10^6/uL Hgb 11.6 L (12.0-16.0) g/dL Hct 34.8 (33.0-47.0) % MCV 86.4 (78.0-93.0) fL MCH 28.8 (26.0-32.0) pg MCHC 33.3 (32.0-36.0) g/dL RDW Coeff of Samuel 13.3 (10.0-15.0) % Plt Count 184 (130-400) x10^3/uL Neut % (Auto) 79.0 (50.0-80.0) % Lymph % (Auto) 11.5 L (25.0-50.0) % [place] % (Auto) 9.0 (2.0-11.0) % Eos % (Auto) 0.2 (0.0-4.0) % Baso % (Auto) 0.3 (0.2-1.2) % PT 18.7 H (10.0-12.8) SEC INR 1.7 L (2.0-3.5) Sodium 135 L (136-145) mmol/L Potassium 3.8 (3.5-5.1) mmol/L Chloride 98 (98-107) mmol/L Carbon Dioxide 27 (21-32) mmol/L Anion Gap 13.8 (10-20) mmol/L BUN 13 (7-18) mg/dL Creatinine 1.1 H (0.55-1.02) mg/dL Est Cr Clr Drug Dosing TNP Estimated GFR (MDRD) 48 Glucose 116 H (74-106) mg/dL Lactic Acid (0.4-2.0) mmol/L Uric Acid (2.6-6.0) mg/dL Calcium 8.4 L (8.5-10.1) mg/dL Corrected Calcium 9.36 (8.5-10.1) mg/dL Phosphorus 3.0 (2.6-4.7) mg/dL Magnesium 1.4 L (1.8-2.4) mg/dL Total Bilirubin 0.4 (0.2-1.0) mg/dL AST 31 (15-37) U/L ALT 39 (14-59) U/L Alkaline Phosphatase 78 (46-116) U/L C-Reactive Protein 7.8 H (<=0.9) mg/dL Total Protein 6.5 (6.4-8.2) g/dL Albumin 2.8 L (3.4-5.0) g/dL Globulin 3.7 Albumin/Globulin Ratio 0.76 01/16/19 01/16/19 Range/Units 10:30 10:50 WBC (4.0-10.0) x10^3/uL RBC (4.00-5.50) x10^6/uL Hgb (12.0-16.0) g/dL Hct (33.0-47.0) % MCV (78.0-93.0) fL MCH (26.0-32.0) pg MCHC (32.0-36.0) g/dL RDW Coeff of Samuel (10.0-15.0) % Plt Count (130-400) x10^3/uL Neut % (Auto) (50.0-80.0) % Lymph % (Auto) (25.0-50.0) % [place] % (Auto) (2.0-11.0) % Eos % (Auto) (0.0-4.0) % Baso % (Auto) (0.2-1.2) % PT (10.0-12.8) SEC INR (2.0-3.5) Sodium (136-145) mmol/L Potassium (3.5-5.1) mmol/L Chloride (98-107) mmol/L Carbon Dioxide (21-32) mmol/L Anion Gap (10-20) mmol/L BUN (7-18) mg/dL Creatinine (0.55-1.02) mg/dL Est Cr Clr Drug Dosing Estimated GFR (MDRD) Glucose (74-106) mg/dL Lactic Acid 1.5 (0.4-2.0) mmol/L Uric Acid 6.3 H (2.6-6.0) mg/dL Calcium (8.5-10.1) mg/dL Corrected Calcium (8.5-10.1) mg/dL Phosphorus (2.6-4.7) mg/dL Magnesium (1.8-2.4) mg/dL Total Bilirubin (0.2-1.0) mg/dL AST (15-37) U/L ALT (14-59) U/L Alkaline Phosphatase (46-116) U/L C-Reactive Protein (<=0.9) mg/dL Total Protein (6.4-8.2) g/dL Albumin (3.4-5.0) g/dL Globulin Albumin/Globulin Ratio Meds: Medications Generic Name Dose Route Start Last Admin Trade Name Freq PRN Reason Stop Dose Admin Colchicine 0.6 mg 01/16/19 12:30 Colcrys PO 01/17/19 23:59 BID IRLANDA Cefazolin Sodium 1 gm/ Sodium 100 mls @ 400 mls/hr 01/16/19 18:00 Chloride IV Q8H IRLANDA Sodium Chloride 10 ml 01/16/19 10:13 Saline Flush FLUSH ASDIRECTED PRN Keep Vein Open Sodium Chloride 10 ml 01/16/19 12:15 Saline Flush FLUSH ASDIRECTED PRN Keep Vein Open Tramadol HCl 50 mg 01/16/19 12:25 Ultram PO Q6H PRN Pain Discontinued Medications Generic Name Dose Route Start Last Admin Trade Name Frecielo PRN Reason Stop Dose Admin Cefazolin Sodium 1 gm 01/16/19 11:18 01/16/19 11:29 Ancef IVPUSH 01/16/19 11:19 1 gm ONETIME ONE Administration Departure - Departure Time of Disposition: 12:00 Disposition: DC/Tfer to Acute Hospital 02 Clinical Impression: Cellulitis - Discharge Information - Problem List Review Problem List Initiated/Reviewed/Updated: Yes - My Orders Last 24 Hours: My Active Orders 01/16/19 10:13 Sodium Chloride 0.9% [Saline Flush] 10 ml FLUSH ASDIRECTED PRN Peripheral IV Insertion Adult [OM.PC] Routine 01/16/19 10:15 Blood Culture x2 Reflex Set [OM.PC] Stat 01/16/19 10:30 CULTURE BLOOD [BC] Stat 01/16/19 10:35 CULTURE BLOOD [BC] Stat - Assessment/Plan Last 24 Hours: My Active Orders 01/16/19 10:13 Sodium Chloride 0.9% [Saline Flush] 10 ml FLUSH ASDIRECTED PRN Peripheral IV Insertion Adult [OM.PC] Routine 01/16/19 10:15 Blood Culture x2 Reflex Set [OM.PC] Stat 01/16/19 10:30 CULTURE BLOOD [BC] Stat 01/16/19 10:35 CULTURE BLOOD [BC] Stat Plan: Pt. will be admitted acutely. Dr. Márquez was contacted and is doing admission orders at this time. She was not able to bear weight on the extremity at all and is an assist of one when pivoting to chair. She was given ancef 1 gm IV in ER. Radiographs of the ankle did not reveal any acute pathology.
[2019-01-16] MEDS ORDERED: Magnesium Sulfate/Water 2 GM in Premix Bag 1 BAG IV ONE (12:36)
[2019-01-16] MEDS ORDERED: TRIAMCINOLONE ACETONIDE 0.1% TOP PRN (12:38)
[2019-01-16] MEDS ORDERED: CLOBETASOL 0.05% TOP PRN (12:38)
[2019-01-16] MEDS: traMADol 50 MG Tab PO PRN (13:17)
[2019-01-16] MEDS: Colchicine 0.6 MG Tab PO SCH ×2 (13:17→19:45)
[2019-01-16] MEDS: Warfarin 2.5 MG Tab PO SCH (13:18)
[2019-01-16] MEDS: ceFAZolin 1 GM Vial IVPUSH SCH (17:40)
[2019-01-16] MEDS: OMEGA ACID ETHYL ESTERS PO SCH (17:40)
[2019-01-16] MEDS: Magnesium Oxide 400 MG Tab PO SCH (17:40)
[2019-01-16] MEDS: Sodium Chloride 0.9% 10 ML Syringe FLUSH PRN (17:40)
--- NOTE | 2019-01-16 17:59 | HP ---
CHIEF COMPLAINT: Right ankle pain. HISTORY OF PRESENT ILLNESS: The patient is a 78-year-old female who presents to the emergency room with inability to walk on her right ankle. She said it started during the night. She says it hurt quite a bit. She was not able to bear weight. She denies any trauma to her ankle. She has had a remote history of gout before. When seen in the emergency room, she was felt to be with little bit elevated temperature and concern for cellulitis. Her white blood cell count was slightly elevated. She was given Ancef. X-ray of her ankle was negative and she is felt to be in need of acute care for management of this. The patient comments that she did take some tramadol at home, but her current med list does not include tramadol. She normally sees Yenny Zepeda as her primary care provider. To note, the patient did recover from a ventral hernia surgery earlier this spring and had been over in [place] on swing bed and had some problems with low sodium and confusion at that time. The patient otherwise has not been hospitalized at [facility] since 12/19/2016. MEDICATIONS: Medication list is somewhat uncertain. Prozac 20 mg 3 pills daily, [place]-3, Lovaza 2 capsules twice a day, DuoNeb solution one 4 times a day as needed, Kenalog cream 0.1% b.i.d. for rash, Zocor 20 mg 1 pill at bedtime, Prilosec 40 mg 1 pill a day, metoprolol XL 25 mg 1 pill a day, clobetasol 0.05% ointment b.i.d. p.r.n., Flonase 1 spray b.i.d., Symbicort 160/4.5 two puffs twice a day, trazodone 100 mg 1 pill at bedtime, Coumadin per nursing per anticoagulation clinic, oxygen 2 L at night and during the day as needed, aspirin 81 mg 1 pill daily, calcium carbonate, calciferol with vitamin D 600/500 one pill a day, vitamin D 5000 units 1 pill once a day. ALLERGIES: Nonsteroidals as well as Crestor. PAST MEDICAL HISTORY: The patient has coronary artery disease, COPD, chronic atrial fibrillation, chronic depression, hypertension, generalized anxiety, gastroesophageal reflux disease, impaired glucose, hypercholesterolemia, low back pain, insomnia, mild diastolic dysfunction, obesity, obstructive sleep apnea on CPAP, oxygen dependent. She has a chronic pain contract signed. She has had valvular heart disease. She has had adenomatous colon polyps, coronary artery disease, cataracts, gout in the past, and morbid obesity. She has toe problems of her left foot. In regard to coronary artery disease, she had inconclusive Cardiolite stress test in 2008. Followup PET scan was negative. PAST SURGICAL HISTORY: She has had bladder repair in 1996, breast biopsy on the right years ago, removal of a mass. She has had cataract surgery on both eyes. Colonoscopy, she has had a hemicolectomy in 2010 for twisted bowel. She had a hysterectomy in 1996. She has her ovaries. She has had joint replacement. She has had left shoulder arthroplasty done on 10/13/2017. She has had left hip arthroplasty on 07/10/2015. She has had a left knee on 12/26/2013. She has had right knee done on 05/23/2014. She has had ulnar nerve surgery on 10/26/2013. She has had ventral hernia repair on 10/04/2018. VACCINATIONS: She has had pneumococcal 13 on 01/14/2015, pneumococcal 23 on 06/21/2016, tetanus on 12/24/2009. She did have a flu shot on 06/07/2018. FAMILY HISTORY: Father had a stroke at age 63 and had hypertension. Mother had colon cancer. Sister has had breast cancer, cataracts, alcohol abuse, depression, diabetes, stomach cancer. Brothers has had substance abuse. Another sister has had brain cancer. SOCIAL HISTORY: The patient is . She has children in the area. She quit smoking in 1974, also has not smoked for many years. She lives at home alone. REVIEW OF SYSTEMS: The patient has been having some problems with hammertoes on her left foot. No nausea. No diarrhea. No bruising. Mood is good. She is not coughing or short of breath. PHYSICAL EXAMINATION: Vital Signs: Show that her blood pressure is 143/62, pulse is 80, respirations are 18. Her weight is 124 kg. Temperature, please refer to nursing notes. General: Reveals generally alert, pleasant female. She is not able to bear weight on her right leg. HEENT: Her pupils are equal and reactive to light. Pharynx is normal. Heart: Irregularly irregular. Lungs: Clear to auscultation. Abdomen: Obese, soft, nontender. Extremities: Right ankle is warm and very tender on the lateral aspect with slight swelling. She has difficult time moving it. On her left foot, she does have hammertoes. Neurologic: She is alert and pleasant to visit with. DIAGNOSTIC DATA: X-ray was taken of right ankle, which shows no fracture, does show some arthritis. LABORATORY DATA: Lab work shows white blood cell count 11.4, hemoglobin 11.6, platelets 184, 79 lymphocytes, 79 neutrophils, 11 lymphocytes. INR is 1.7. Sodium 135, potassium 3.8, chloride 98, carbon dioxide 27, creatinine 1.1, GFR 48, glucose 116, lactic acid 1.5. Uric acid 6.3, calcium 8.4, magnesium is 1.4. Total bilirubin is 0.4, AST 31, ALT 39, alkaline phosphatase is 78. CRP is 7.8. IMPRESSION: 1. Right ankle pain, suspect cellulitis. 2. Probably gout. 3. Hypomagnesemia. 4. Chronic obstructive pulmonary disease. 5. Hypertension. 6. Chronic atrial fibrillation. 7. Obstructive sleep apnea. 8. Hypertension. 9. Obesity. PLAN: The patient will be placed on acute care. We will continue IV Ancef on patient. Also, placed her on oral colchicine. We will give her heat therapy. We will have Physical Therapy work with patient with strengthening. We will watch her INRs. We will give her magnesium replacement. The patient's code level status, she does desire code level 1 status, to be resuscitated and anticipate her to be able to return home in a few days. GM01/16/2019 12:36:10 MODL: 01/16/2019 17:56:19 /[id number]
[2019-01-16] MEDS ORDERED: ceFAZolin 1 GM in Sodium Chloride 0.9% 100 ML IV SCH (18:00)
[2019-01-16] MEDS: traZODone 50 MG Tab PO SCH (19:45)
[2019-01-16] MEDS: Simvastatin 20 MG Tab PO SCH (19:45)
[2019-01-16] MEDS: Aspirin 81 MG Tab.EC PO SCH (19:45)
[2019-01-16] MEDS: Fluticasone Propionate Nasal Spray 16 GM Bottle NASBOTH SCH (19:48)
[2019-01-16] MEDS: Fluticasone-Salmeterol 232-14 MCG Powder Inhalent INH SCH (19:49)
[2019-01-17] MEDS: Sodium Chloride 0.9% 10 ML Syringe FLUSH PRN ×3 (01:44→18:16)
[2019-01-17] MEDS: ceFAZolin 1 GM Vial IVPUSH SCH ×3 (01:44→18:16)
[2019-01-17] MEDS: Omeprazole 20 MG Cap.CR PO SCH ×2 (05:14→06:10)
[2019-01-17 07:00] LABS: ANION GAP 12.7 mmol/L (10-20)
[2019-01-17] MEDS: traMADol 50 MG Tab PO PRN ×2 (07:47→15:01)
[2019-01-17] MEDS: Colchicine 0.6 MG Tab PO SCH (07:47)
[2019-01-17] MEDS: Metoprolol Succinate 25 MG Tab.ER PO SCH (07:48)
[2019-01-17] MEDS: Warfarin 2.5 MG Tab PO SCH (07:48)
[2019-01-17] MEDS: Cholecalciferol (Vitamin D3) 1,000 Unit Tab PO SCH (07:48)
[2019-01-17] MEDS: Magnesium Oxide 400 MG Tab PO SCH (07:48)
[2019-01-17] MEDS: FLUoxetine 20 MG Cap PO SCH (07:48)
[2019-01-17] MEDS: Calcium Carbonate/Vitamin D3 1250 MG-200 Unit Tab PO SCH (07:48)
[2019-01-17] MEDS: Fluticasone-Salmeterol 232-14 MCG Powder Inhalent INH SCH ×2 (07:49→20:37)
[2019-01-17] MEDS: Fluticasone Propionate Nasal Spray 16 GM Bottle NASBOTH SCH ×2 (07:49→20:37)
[2019-01-17] MEDS: OMEGA ACID ETHYL ESTERS PO SCH ×2 (07:49→18:17)
--- NOTE | 2019-01-17 09:08 | PN ---
Progress Note for MEME SHEPPARD Date: 01/17/2019 Room #: VM.215 SUBJECTIVE: The patient still has quite a bit of pain of her right foot. She says it is difficult to stand on. Otherwise, she offers no new complaints or concerns. OBJECTIVE: Vital Signs: Her temperature stayed afebrile at 36.6 this morning, pulse is 83, blood pressure is 124/57, saturations are 90%. She does use her oxygen for sleep. Heart: Regular rate and rhythm. Lungs: Clear to auscultation. Abdomen: Soft. Extremities: Her right ankle is swollen, warm, and quite tender. There is redness that goes on the lower third of her lateral leg. There is swelling present. LABORATORY DATA: Shows her white blood cell count is improved to 8.1, hemoglobin is 10.9 with platelet count 169, 77 segs, 5 bands, 16 lymphocytes. INR is 1.7. Sodium is 135, potassium 3.7, creatinine 1.0. GFR 54, glucose 95. Corrected calcium is 9.58. Magnesium is improved to 1.7. LFTs are normal. CRP has gone up to 27.3 from 7.8. IMPRESSION: 1. Right ankle cellulitis. 2. Gouty arthritis. 3. Hypomagnesemia. 4. Hypertension. PLAN: We will continue the IV Ancef as well as her oral colchicine; however, we will reduce her colchicine to once a day, and we will continue her on the same dose of oral magnesium. We will recheck her lab tomorrow for her uric acid as well as her magnesium level and CRP level. She may need consideration of addition of steroids if her swelling continues to be fairly extensive. The patient feels comfortable with current plan of care. GM01/17/2019 08:26:26 MODL: 01/17/2019 09:00:41 /[id number]
[2019-01-17] MEDS: traZODone 50 MG Tab PO SCH (20:38)
[2019-01-17] MEDS: Aspirin 81 MG Tab.EC PO SCH (20:38)
[2019-01-17] MEDS: Simvastatin 20 MG Tab PO SCH (20:38)
[2019-01-18] MEDS: ceFAZolin 1 GM Vial IVPUSH SCH ×3 (01:48→17:26)
[2019-01-18] MEDS: traMADol 50 MG Tab PO PRN ×3 (02:20→21:02)
[2019-01-18] MEDS: Omeprazole 20 MG Cap.CR PO SCH (06:28)
[2019-01-18] MEDS: Cholecalciferol (Vitamin D3) 1,000 Unit Tab PO SCH (08:28)
[2019-01-18] MEDS: Warfarin 2.5 MG Tab PO SCH (08:28)
[2019-01-18] MEDS: Colchicine 0.6 MG Tab PO SCH (08:28)
[2019-01-18] MEDS: Calcium Carbonate/Vitamin D3 1250 MG-200 Unit Tab PO SCH (08:28)
[2019-01-18] MEDS: FLUoxetine 20 MG Cap PO SCH (08:28)
[2019-01-18] MEDS: OMEGA ACID ETHYL ESTERS PO SCH ×2 (08:30→17:26)
[2019-01-18] MEDS: Fluticasone Propionate Nasal Spray 16 GM Bottle NASBOTH SCH ×2 (08:30→20:52)
[2019-01-18] MEDS: Fluticasone-Salmeterol 232-14 MCG Powder Inhalent INH SCH ×2 (08:30→20:52)
[2019-01-18] MEDS ORDERED: Warfarin 2.5 MG Tab PO ONE (08:31)
[2019-01-18] MEDS: Magnesium Oxide 400 MG Tab PO SCH ×2 (08:35→20:53)
[2019-01-18] MEDS: Metoprolol Succinate 25 MG Tab.ER PO SCH (08:36)
--- NOTE | 2019-01-18 15:00 | PN ---
Progress Note for MEME SHEPPARD Date: 01/18/2019 Room #: VM.215 SUBJECTIVE: This is the patient's 3rd hospital day with right ankle swelling and redness. She says she is now finally able to put some weight on it, but is still fairly tender. She did have an episode yesterday afternoon where her blood pressure did drop down into the 90s/60s, so she was encouraged to drink more fluids. She is not feeling dizzy or lightheaded. Otherwise, rest of her is feeling better, stronger. She has not yet been seen by Physical Therapy. OBJECTIVE: Vital Signs: This morning, her temperature was 36.4, she stayed afebrile since being admitted, her blood pressure is 126/50, pulse is 64, respirations 16, sats are 93%, she has 2 L of oxygen at night, but not during the day. Skin: Still slightly red on her ankle with warmth present. Heart: Regular rate and rhythm. Lungs: Clear to auscultation. Abdomen: Soft. LABORATORY DATA: Today shows her white blood cell count is still normal at 7.6, hemoglobin 11.0, which is stable, platelets are 222, 67 segs, 2 bands, 19 lymphocytes. INR is dropped down to 1.6. Sodium is 138, potassium 4.0, creatinine is 1.0, GFR is 54, and glucose is 111. Uric acid is improved to 5.4. CRP is improved just slightly to 23.4. Her magnesium today was low again at 1.6. IMPRESSION: 1. Cellulitis of right ankle. 2. Gouty arthritis. 3. Hypomagnesemia. 4. Chronic atrial fibrillation. PLAN: We will add oral prednisone 20 mg to help with inflammation. We will increase her magnesium to 400 mg 1 pill twice a day. We will have the patient work with physical therapy and monitor her vital signs. Not certain if she will be able to go home tomorrow or the next day. GM01/18/2019 08:36:17 MODL: 01/18/2019 09:29:05 /[id number]
[2019-01-18] MEDS: traZODone 50 MG Tab PO SCH (20:52)
[2019-01-18] MEDS: Aspirin 81 MG Tab.EC PO SCH (20:53)
[2019-01-18] MEDS: Simvastatin 20 MG Tab PO SCH (20:53)
[2019-01-19] MEDS: ceFAZolin 1 GM Vial IVPUSH SCH (01:54)
[2019-01-19] MEDS: Sodium Chloride 0.9% 10 ML Syringe FLUSH PRN ×2 (01:55→08:12)
[2019-01-19] MEDS: Omeprazole 20 MG Cap.CR PO SCH (06:08)
[2019-01-19 07:04] LABS: CHLORIDE,CL 102 mmol/L (98-107); SODIUM,NA 139 mmol/L (136-145)
[2019-01-19] MEDS: Magnesium Oxide 400 MG Tab PO SCH ×3 (08:05→22:13)
[2019-01-19] MEDS: FLUoxetine 20 MG Cap PO SCH (08:05)
[2019-01-19] MEDS: Cholecalciferol (Vitamin D3) 1,000 Unit Tab PO SCH (08:06)
[2019-01-19] MEDS: Metoprolol Succinate 25 MG Tab.ER PO SCH (08:07)
[2019-01-19] MEDS: predniSONE 20 MG Tab PO SCH (08:11)
[2019-01-19] MEDS: Colchicine 0.6 MG Tab PO SCH (08:11)
[2019-01-19] MEDS: Warfarin 2.5 MG Tab PO SCH (08:11)
[2019-01-19] MEDS: Calcium Carbonate/Vitamin D3 1250 MG-200 Unit Tab PO SCH (08:11)
[2019-01-19] MEDS: OMEGA ACID ETHYL ESTERS PO SCH ×2 (08:19→17:52)
[2019-01-19] MEDS: Fluticasone-Salmeterol 232-14 MCG Powder Inhalent INH SCH ×2 (08:20→22:15)
[2019-01-19] MEDS: Fluticasone Propionate Nasal Spray 16 GM Bottle NASBOTH SCH ×2 (08:24→22:14)
--- NOTE | 2019-01-19 09:18 | PN ---
Progress Note for MEME SHEPPARD Date: 01/19/2019 Room #: VM.215 SUBJECTIVE: This is patient's 4th hospital day. She says finally her ankle starting to feel better. Her appetite is good. She offers no other complaints or concerns. She has been working with physical therapy for ambulation. We did start prednisone yesterday. I do believe that has helped. We have increased her oral magnesium yesterday as well. OBJECTIVE: Vital Signs: Her temperature is 36.6, pulse 80, blood pressure is 137/58, saturations are 93% on room air. General: She is alert, pleasant to visit with. Heart: Regular rate and rhythm. Lungs: Clear to auscultation. Extremities: Right ankle is greatly improved with mild erythema. She does have more flexibility, less swelling of the area. LABORATORY DATA: Today, white blood cell count 6.2, hemoglobin stable at 10.7, ESR is 83. Her INR has dropped down to 1.5, potassium is 4.0, creatinine 0.9, GFR greater than 60. Calcium is 8.3, magnesium has dropped again down to 1.5. IMPRESSION: 1. Right ankle cellulitis. 2. Gout of right ankle. 3. Hypomagnesemia. 4. Chronic atrial fibrillation 5. subtherapeutic INR.. PLAN: We will increase her magnesium orally today. We will increase her Coumadin again. We will stop her Ancef and start her on Duricef. We will continue the prednisone right now. We will have on-call hospitalist see the patient tomorrow to hopefully be able to discharge home. The patient should be seen in a week's time by Yenny Zepeda, her primary care provider. She will need to have her INR monitored per [facility]. GM01/19/2019 08:34:55 MODL: 01/19/2019 09:09:25 /[id number] LLUVIA
[2019-01-19] MEDS ORDERED: Warfarin 2.5 MG Tab PO ONE (18:25)
[2019-01-19] MEDS: traZODone 50 MG Tab PO SCH (22:12)
[2019-01-19] MEDS: Cefadroxil 500 MG Cap PO SCH (22:12)
[2019-01-19] MEDS: Aspirin 81 MG Tab.EC PO SCH (22:13)
[2019-01-19] MEDS: Simvastatin 20 MG Tab PO SCH (22:13)
[2019-01-20] MEDS: Omeprazole 20 MG Cap.CR PO SCH (06:34)
[2019-01-20] MEDS: Colchicine 0.6 MG Tab PO SCH (07:50)
[2019-01-20] MEDS: Calcium Carbonate/Vitamin D3 1250 MG-200 Unit Tab PO SCH (07:50)
[2019-01-20] MEDS: Cefadroxil 500 MG Cap PO SCH (07:50)
[2019-01-20] MEDS: Cholecalciferol (Vitamin D3) 1,000 Unit Tab PO SCH (07:50)
[2019-01-20] MEDS: Magnesium Oxide 400 MG Tab PO SCH (07:50)
[2019-01-20] MEDS: Warfarin 2.5 MG Tab PO SCH (07:50)
[2019-01-20] MEDS: FLUoxetine 20 MG Cap PO SCH (07:50)
[2019-01-20] MEDS: Metoprolol Succinate 25 MG Tab.ER PO SCH (07:50)
[2019-01-20] MEDS: OMEGA ACID ETHYL ESTERS PO SCH (07:51)
[2019-01-20] MEDS: predniSONE 20 MG Tab PO SCH (07:51)
[2019-01-20] MEDS: Fluticasone-Salmeterol 232-14 MCG Powder Inhalent INH SCH (07:52)
[2019-01-20] MEDS: Fluticasone Propionate Nasal Spray 16 GM Bottle NASBOTH SCH (07:52)
[2019-01-20] MEDS: Sodium Chloride 0.9% 10 ML Syringe FLUSH PRN (07:54)
[2019-01-20 08:17] LABS: CHLORIDE,CL 103 mmol/L (98-107); SODIUM,NA 139 mmol/L (136-145)
[2019-01-20 08:18] LABS: ANION GAP 11.9 mmol/L (10-20)
--- NOTE | 2019-01-20 09:33 | PCM.DCSUM1 ---
Discharge Summary - Hospital Course HPI Initial Comments: Patient was admitted 5 days ago for cellulitis. She continues to feel better and would like to be discharged. She has been taking oral antibiotics, eating, and drinking without difficulty. She denies any complaints or concerns. She continues to work with physical therapy. We did discuss moving to swing bed if she did not feel ready for discharge. However, patient feels she is ready for discharge and feels she can manage herself at home. Diagnosis: Stroke: No - Discharge Data Discharge Date: 01/20/19 Discharge Disposition: Home, Self-Care 01 Condition: Good - Discharge Diagnosis/Problem(s) (1) Cellulitis SNOMED Code(s): 491950723 ICD Code: L03.90 - CELLULITIS, UNSPECIFIED Status: Acute Current Visit: Yes (2) Afib, Atrial fibrillation SNOMED Code(s): 82360621 ICD Code: I48.91 - UNSPECIFIED ATRIAL FIBRILLATION Status: Acute Current Visit: No (3) HTN, Essential hypertension SNOMED Code(s): 34997101 ICD Code: I10 - ESSENTIAL (PRIMARY) HYPERTENSION Status: Acute Current Visit: No (4) Hyponatremia SNOMED Code(s): 36279444 ICD Code: E87.1 - HYPO-OSMOLALITY AND HYPONATREMIA Status: Acute Current Visit: No - Patient Summary/Data Consults: Consultations 01/16/19 12:15 PT Evaluation and Treatment [CONS] Routine - Patient Instructions Diet: Heart Healthy Diet Activity: As Tolerated Driving: May Drive Today Showering/Bathing: May Shower Notify Provider of: Fever, Increased Pain, Swelling and Redness Other/Special Instructions: 1. Rest. 2. Activity and diet as tolerated. 3. Continue to take oral Cefadroxil for the next 9 days. 4. Take probiotic while taking antibiotic to promote good GI health. 5. Keep your appointment with Yenny Zepeda. 6. Follow up in the [facility]mad[facility] on tuesday for re- evaluation. 7. Can Take tylenol as needed for pain or discomfort. 8. Call with any questions or concerns - Discharge Plan *PRESCRIPTION DRUG MONITORING PROGRAM REVIEWED*: Not Applicable *COPY OF PRESCRIPTION DRUG MONITORING REPORT IN PATIENT RITA: Not Applicable Prescriptions/Med Rec: Cefadroxil [Duricef] 500 mg PO BID 9 Days #18 cap Home Medications: Home Meds Budesonide/Formoterol [Symbicort 160-4.5 MCG] 2 puff INH BID 12/30/13 [History] Clobetasol [Temovate 0.05% Oint] 1 applic TOP BID PRN 12/30/13 [History] FLUoxetine [PROzac] 60 mg PO DAILY 12/30/13 [History] Fluticasone Propionate [Flonase] 1 spray NASBOTH BID 12/30/13 [History] Metoprolol Succinate [Toprol XL] 25 mg PO DAILY 12/30/13 [History] Simvastatin [Zocor] 20 mg PO BEDTIME 12/30/13 [History] Warfarin [Coumadin] 2.5 mg PO DAILY 12/30/13 [History] traZODone 100 mg PO BEDTIME 12/30/13 [History] Aspirin [Halfprin] 81 mg PO BEDTIME 07/15/15 [History] Calcium Carbonate/Vitamin D3 [Calcium 600-Vit D3 800 Caplet] 1 each PO DAILY 06/19 [History] Cholecalciferol (Vitamin D3) [Vitamin D3] 5,000 unit PO DAILY 07/15/15 [History] Omeprazole 40 mg PO ACBREAKFAST 07/15/15 [History] Triamcinolone Acetonide [Triamcinolone Acetonide 0.1% Oint] 1 applic TOP BID PRN 12/20/16 [History] [place]-3 Acid Ethyl Esters 2 gm PO BIDMEALS 01/16/19 [History] Cefadroxil [Duricef] 500 mg PO BID 9 Days #18 cap 01/20/19 [Rx] [place]-3 Acid Ethyl Esters [Lovaza] 2 cap PO BIDMEALS 01/20/19 [Rx] Oxygen Therapy Mode: Room Air Patient Handouts: Cellulitis, Adult, [id number] Forms: ED Department Discharge Referrals: Nallely Zepeda DO [Primary Care Provider] - - Discharge Summary/Plan Comment DC Time >30 min.: No - General Info Date of Service: 01/20/19 Functional Status: Reports: Pain Controlled, Tolerating Diet, Ambulating - Review of Systems General: Reports: No Symptoms HEENT: Reports: No Symptoms Pulmonary: Reports: No Symptoms Cardiovascular: Reports: No Symptoms Gastrointestinal: Reports: No Symptoms Genitourinary: Reports: No Symptoms Musculoskeletal: Reports: No Symptoms Skin: Reports: No Symptoms Neurological: Reports: No Symptoms Psychiatric: Reports: No Symptoms - Patient Data Vitals - Most Recent: Last Vital Signs Temp 36.2 C 01/20/19 06:00 Pulse 67 01/20/19 07:50 Resp 20 01/19/19 17:06 BP 116/52 L 01/20/19 07:50 Pulse Ox 96 01/20/19 07:55 Weight - Most Recent: 124.058 kg I&O - Last 24 hours: Intake & Output 01/19/19 01/20/19 01/20/19 22:59 06:59 14:59 Intake Total 520 Output Total 600 1550 400 Balance -80 -1550 -400 Lab Results - Last 24 hrs: Laboratory Results - last 24 hr 01/20/19 01/20/19 01/20/19 Range/Units 07:28 07:28 07:28 WBC 5.7 (4.0-10.0) x10^3/uL RBC 3.61 L (4.00-5.50) x10^6/uL Hgb 10.3 L (12.0-16.0) g/dL Hct 31.7 L (33.0-47.0) % MCV 87.8 (78.0-93.0) fL MCH 28.5 (26.0-32.0) pg MCHC 32.5 (32.0-36.0) g/dL RDW Coeff of Samuel 13.4 (10.0-15.0) % Plt Count 204 (130-400) x10^3/uL Neut % (Auto) 58.0 (50.0-80.0) % Lymph % (Auto) 32.9 (25.0-50.0) % [place] % (Auto) 7.8 (2.0-11.0) % Eos % (Auto) 0.9 (0.0-4.0) % Baso % (Auto) 0.4 (0.2-1.2) % PT 19.7 H (10.0-12.8) SEC INR 1.7 L (2.0-3.5) Sodium 139 (136-145) mmol/L Potassium 3.9 (3.5-5.1) mmol/L Chloride 103 (98-107) mmol/L Carbon Dioxide 28 (21-32) mmol/L Anion Gap 11.9 (10-20) mmol/L BUN 13 (7-18) mg/dL Creatinine 0.8 (0.55-1.02) mg/dL Est Cr Clr Drug Dosing 45.84 mL/min Estimated GFR (MDRD) > 60 Glucose 104 (74-106) mg/dL Calcium 8.3 L (8.5-10.1) mg/dL Corrected Calcium 9.74 (8.5-10.1) mg/dL Magnesium 1.8 (1.8-2.4) mg/dL Total Bilirubin 0.3 (0.2-1.0) mg/dL AST 18 (15-37) U/L ALT 27 (14-59) U/L Alkaline Phosphatase 67 (46-116) U/L Total Protein 6.2 L (6.4-8.2) g/dL Albumin 2.2 L (3.4-5.0) g/dL Globulin 4.0 Albumin/Globulin Ratio 0.55 KRYSTINA Results - Last 24 hrs: Microbiology 01/16/19 10:30 Aerobic Blood Culture - Preliminary Blood - Venous - Lab Draw NO GROWTH AFTER 3 DAYS Anaerobic Blood Culture - Preliminary NO GROWTH AFTER 3 DAYS 01/16/19 10:35 Aerobic Blood Culture - Preliminary Blood - Venous NO GROWTH AFTER 3 DAYS Anaerobic Blood Culture - Preliminary NO GROWTH AFTER 3 DAYS Med Orders - Current: Current Medications Aspirin (Halfprin) 81 mg PO BEDTIME [facility] Last Admin: 01/19/19 22:13 Dose: 81 mg Calcium Carbonate (Calcium Carbonate/Vitamin D 1250 Mg-200 Unit) 1 tab PO DAILY [facility] Last Admin: 01/20/19 07:50 Dose: 1 tab Cefadroxil (Duricef) 500 mg PO BID [facility] Stop: 01/26/19 20:01 Last Admin: 01/20/19 07:50 Dose: 500 mg Cholecalciferol (Vitamin D3) 5,000 units PO DAILY [facility] Last Admin: 01/20/19 07:50 Dose: 5,000 units Colchicine (Colcrys) 0.6 mg PO DAILY [facility] Last Admin: 01/20/19 07:50 Dose: 0.6 mg Fluoxetine HCl (Prozac) 60 mg PO DAILY [facility] Last Admin: 01/20/19 07:50 Dose: 60 mg Fluticasone Propionate (Flonase) 0 gm NASBOTH BID [facility] Last Admin: 01/20/19 07:52 Dose: 1 spray Magnesium Oxide (Magnesium Oxide) 800 mg PO BID [facility] Last Admin: 01/20/19 07:50 Dose: 800 mg Metoprolol Succinate (Toprol Xl) 25 mg PO DAILY [facility] Last Admin: 01/20/19 07:50 Dose: 25 mg Clobetasol 0.05% Ointment (Own Supply ) 1 applic TOP BID PRN PRN Reason: sores [place]-3 Acid Ethyl ([place] (Own Supply)) 2 cap PO BIDMEALS [facility] Last Admin: 01/20/19 07:51 Dose: 2 cap Triamcinolone Acetonide 0.1% Oint (Own Supply) 1 applic TOP BID PRN PRN Reason: Rash Omeprazole (Omeprazole) 40 mg PO ACBREAKFAST [facility] Last Admin: 01/20/19 06:34 Dose: 40 mg Prednisone (Prednisone) 20 mg PO WITHBREAKFAST [facility] Stop: 01/24/19 08:01 Last Admin: 01/20/19 07:51 Dose: 20 mg Fluticasone/Salmeterol (Fluticasone-Salmeterol 232-14 Mcg Powder Inha) 1 puff INH BID [facility] Last Admin: 01/20/19 07:52 Dose: 1 puff Simvastatin (Zocor) 20 mg PO BEDTIME [facility] Last Admin: 01/19/19 22:13 Dose: 20 mg Sodium Chloride (Saline Flush) 10 ml FLUSH ASDIRECTED PRN PRN Reason: Keep Vein Open Last Admin: 01/20/19 07:54 Dose: 10 ml Tramadol HCl (Ultram) 50 mg PO Q6H PRN PRN Reason: Pain Last Admin: 01/18/19 21:02 Dose: 50 mg Trazodone HCl (Trazodone) 100 mg PO BEDTIME [facility] Last Admin: 01/19/19 22:12 Dose: 100 mg Warfarin Sodium (Coumadin) 2.5 mg PO DAILY [facility] Last Admin: 01/20/19 07:50 Dose: 2.5 mg Discontinued Medications Cefazolin Sodium (Ancef) 1 gm IVPUSH ONETIME ONE Stop: 01/16/19 11:19 Last Admin: 01/16/19 11:29 Dose: 1 gm Cefazolin Sodium (Ancef) 1 gm IVPUSH Q8H [facility] Last Admin: 01/19/19 01:54 Dose: 1 gm Colchicine (Colcrys) 0.6 mg PO BID [facility] Stop: 01/17/19 23:59 Last Admin: 01/17/19 07:47 Dose: 0.6 mg Magnesium Sulfate 2 gm/ Premix 50 mls @ 25 mls/hr IV ONETIME ONE Stop: 01/16/19 14:35 Last Admin: 01/16/19 13:17 Dose: 25 mls/hr Magnesium Oxide (Magnesium Oxide) 400 mg PO DAILY [facility] Last Admin: 01/18/19 08:35 Dose: 400 mg Magnesium Oxide (Magnesium Oxide) 400 mg PO BID [facility] Last Admin: 01/19/19 08:05 Dose: 400 mg Sodium Chloride (Saline Flush) 10 ml FLUSH ASDIRECTED PRN PRN Reason: Keep Vein Open Last Admin: 01/17/19 10:34 Dose: 10 ml Warfarin Sodium (Coumadin) 2.5 mg PO ONETIME ONE Stop: 01/18/19 08:32 Last Admin: 01/18/19 08:36 Dose: 2.5 mg Warfarin Sodium (Coumadin) 2.5 mg PO ONETIME ONE Stop: 01/19/19 18:26 Last Admin: 01/19/19 17:52 Dose: 2.5 mg - Exam General: Reports: Alert, Oriented HEENT: Reports: Pupils Equal, Pupils Reactive, EOMI, Mucous Membr. Moist/[place] Lungs: Reports: Clear to Auscultation, Normal Respiratory Effort Cardiovascular: Reports: Regular Rate, Regular Rhythm Extremities: Normal Inspection, Normal Range of Motion, Non-Tender, No Pedal Edema, Normal Capillary Refill Skin: Reports: Warm, Dry, Intact, Other (minimal erythema noted. No swelling or tenderness noted of the right ankle) Neurological: Reports: No New Focal Deficit Psy/Mental Status: Reports: Alert, Normal Affect, Normal Mood
[2019-01-20 10:55] VITALS: BP 147/72
== END 2019-01-20 13:45 | disposition home or self-care (01) | DRG 603 ==
LOC: VM.ED 09:57 → VM.MS 11:35
PROVIDERS: ADMIT Family Medicine; ATTEND Family Medicine
DX: L03.115 Cellulitis of right lower limb (principal); E87.1 Hypo-osmolality and hyponatremia; I25.10 Atherosclerotic heart disease of native coronary artery without angina pectoris; J44.9 Chronic obstructive pulmonary disease, unspecified; I48.2 Chronic atrial fibrillation; F32.9 Major depressive disorder, single episode, unspecified; F41.1 Generalized anxiety disorder; I10 Essential (primary) hypertension; E83.42 Hypomagnesemia; K21.9 Gastro-esophageal reflux disease without esophagitis; G47.33 Obstructive sleep apnea (adult) (pediatric); E78.00 Pure hypercholesterolemia, unspecified; E66.01 Morbid (severe) obesity due to excess calories; M10.9 Gout, unspecified; Z96.612 Presence of left artificial shoulder joint; Z96.642 Presence of left artificial hip joint; Z96.651 Presence of right artificial knee joint; J30.9 Allergic rhinitis, unspecified; G47.00 Insomnia, unspecified; G89.4 Chronic pain syndrome; Z68.43 Body mass index [BMI] 50.0-59.9, adult; Z98.49 Cataract extraction status, unspecified eye; Z99.81 Dependence on supplemental oxygen; Z86.010 Personal history of colon polyps; Z88.8 Allergy status to other drugs, medicaments and biological substances; Z87.891 Personal history of nicotine dependence; Z79.82 Long term (current) use of aspirin; Z90.79 Acquired absence of other genital organ(s)
CPT/HCPCS: 36415; 73600-RT; 80048; 80053; 82962; 83605; 83735; 84100; 84550; 85007; 85025; 85027; 85610; 85652; 86140; 87040; 96374; 97116-GP; 97161-GP; 97530-GP; 99284-GF; 99285-25; A4217; A9270-GY; J0690; J3475

== ENCOUNTER 2019-10-19 19:24 | Inpatient (IN) | payer MEDICARE, OTHER ==
--- NOTE | 2019-10-19 20:25 | EDM.PDOC ---
ED HPI GENERAL MEDICAL PROBLEM - General Time Seen by Provider: 10/19/19 19:30 Source of Information: Reports: Patient, EMS - History of Present Illness INITIAL COMMENTS - FREE TEXT/NARRATIVE: Pt. presents to ER with complaints of increased shortness of breath. She states that she has been having problems ambulating around her house and has been unable to bathe due to fatigue/shortness of breath. She has not been chilled at home, but was running a low-grade fever on admission to ER. Pt. was seen in the clinic on 10/10 with increased peripheral edema and 7# weight gain in 2 weeks. She has a history of diastolic heart dysfunction and mitral regurgitation per echo in 2017. He has a history of PENNIE and is on CPAP. She quit smoking in 1974. Pt. states that she is having some chest heaviness and shortness of breath over the past several days. Denies any chest pain, or radiation into the jaw, arms, neck or back. She is not currently on a loop diuretic, but is on triamterene/ HCTZ 75/50mg. She also has a history of a-fib and is anticoagulated with coumadin. Denies any fever or chills. No nausea, vomiting, or diarrhea. Pt. also has a history of COPD and is on symbicort. Pt. was given a duoneb breathing treatment while being transported by EMS. She also was given lasix 40mg IV. On arrival to ER, she reported improvement in her breathing difficulties. EKG was performed and showed a sinus rhythm without any acute ST/T wave abnormality. Onset: Today Onset Date: 10/19/19 Location: Reports: Chest, Generalized Quality: Reports: Pressure Severity: Moderate - Related Data Allergies Allergy/AdvReac Type Severity Reaction Status Date / Time NSAIDS (Non-Steroidal AdvReac Stomach Verified 01/16/19 12:04 Anti-Inflamma Upset rosuvastatin calcium AdvReac Muscle Verified 01/16/19 12:04 [From Crestor] Aches Home Meds: Home Meds Budesonide/Formoterol [Symbicort 160-4.5 MCG] 2 puff INH BID 12/30/13 [History] Clobetasol [Temovate 0.05% Oint] 1 applic TOP BID PRN 12/30/13 [History] FLUoxetine [PROzac] 60 mg PO DAILY 12/30/13 [History] Fluticasone Propionate [Flonase] 1 spray NASBOTH BID 12/30/13 [History] Metoprolol Succinate [Toprol XL] 25 mg PO DAILY 12/30/13 [History] Simvastatin [Zocor] 20 mg PO BEDTIME 12/30/13 [History] Warfarin [Coumadin] 2.5 mg PO DAILY 12/30/13 [History] traZODone 100 mg PO BEDTIME 12/30/13 [History] Aspirin [Halfprin] 81 mg PO BEDTIME 07/15/15 [History] Calcium Carbonate/Vitamin D3 [Calcium 600-Vit D3 800 Caplet] 1 each PO DAILY 06/19 [History] Cholecalciferol (Vitamin D3) [Vitamin D3] 5,000 unit PO DAILY 07/15/15 [History] Omeprazole 40 mg PO ACBREAKFAST 07/15/15 [History] Triamcinolone Acetonide [Triamcinolone Acetonide 0.1% Oint] 1 applic TOP BID PRN 12/20/16 [History] [place]-3 Acid Ethyl Esters 2 gm PO BIDMEALS 01/16/19 [History] Cefadroxil [Duricef] 500 mg PO BID 9 Days #18 cap 01/20/19 [Rx] [place]-3 Acid Ethyl Esters [Lovaza] 2 cap PO BIDMEALS 01/20/19 [Rx] Past Medical History HEENT History: Reports: Allergic Rhinitis, Cataract Other HEENT History: pinguecula. posterior vitreous detachment. presbyopia. myopia Cardiovascular History: Reports: Arrhythmia, CAD, High Cholesterol, Hypertension Other Cardiovascular History: milde diastolic dysfunction. valvular heart disease. chronic anticoagulation. mild diastolic dysfunction. oxygen dependent. 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 pain in joint, shoulder region Neurological History: Reports: None Other Neuro History: ulnar neuropathy, left. numbness of finger. chronic pain syndrome Psychiatric History: Reports: Anxiety, Depression Other Psychiatric History: hx of alcoholism. morbid obesity. insomnia Endocrine/Metabolic History: Reports: Obesity/BMI 30+ Other Endocrine/Metabolic History: impaired fasting glucose Hematologic History: Reports: None Immunologic History: Reports: None Oncologic (Cancer) History: Reports: None Dermatologic History: Reports: None - Infectious Disease History Infectious Disease History: Reports: Chicken Pox - Past Surgical History HEENT Surgical History: Reports: Cataract Surgery Female Surgical History: Reports: Hysterectomy, Tubal Ligation Musculoskeletal Surgical History: Reports: Knee Replacement Oncologic Surgical History: Reports: Biopsy of Breast Social & Family History - Family History Family Medical History: Noncontributory - Caffeine Use Caffeine Use: Reports: Coffee, Soda ED ROS GENERAL - Review of Systems Review Of Systems: See Below Constitutional: Reports: Fatigue, Weight Gain HEENT: Reports: No Symptoms Respiratory: Reports: Shortness of Breath Cardiovascular: Reports: Dyspnea on Exertion, Edema, Orthopnea Endocrine: Reports: No Symptoms GI/Abdominal: Reports: No Symptoms : Reports: No Symptoms Musculoskeletal: Reports: No Symptoms Skin: Reports: No Symptoms Neurological: Reports: No Symptoms Psychiatric: Reports: No Symptoms Hematologic/Lymphatic: Reports: No Symptoms Immunologic: Reports: No Symptoms ED EXAM, GENERAL - Physical Exam Exam: See Below Exam Limited By: No Limitations General Appearance: Alert, WD/WN, No Apparent Distress EKG INTERPRETATION Rhythm: NSR [place]: Normal P-Wave: Present QRS: Normal ST-T: Normal QT: Normal Course - Orders/Labs/Meds Orders: Active Orders 24 hr Category Date Time Status Patient Status [ADT] Routine ADT 10/19/19 21:05 Ordered EKG Documentation Completion [RC] STAT Care 10/19/19 19:54 Active CULTURE BLOOD [BC] Stat Lab 10/19/19 20:20 Received CULTURE BLOOD [BC] Stat Lab 10/19/19 20:25 Results Sodium Chloride 0.9% [Saline Flush] Med 10/19/19 19:53 Active 10 ml FLUSH ASDIRECTED PRN Blood Culture x2 Reflex Set [OM.PC] Stat Oth 10/19/19 19:56 Ordered Peripheral IV Insertion Adult [OM.PC] Routine Oth 10/19/19 19:56 Ordered Medication Orders Sodium Chloride (Saline Flush) 10 ml FLUSH ASDIRECTED PRN PRN Reason: Keep Vein Open Labs: Laboratory Tests 10/19/19 10/19/19 10/19/19 Range/Units 19:31 20:20 20:20 WBC 9.0 (4.0-10.0) x10^3/uL RBC 4.10 (4.00-5.50) x10^6/uL Hgb 11.6 L (12.0-16.0) g/dL Hct 35.9 (33.0-47.0) % MCV 87.6 (78.0-93.0) fL MCH 28.3 (26.0-32.0) pg MCHC 32.3 (32.0-36.0) g/dL RDW Coeff of Samuel 14.2 (10.0-15.0) % Plt Count 214 (130-400) x10^3/uL Neut % (Auto) 69.7 (50.0-80.0) % Lymph % (Auto) 21.5 L (25.0-50.0) % [place] % (Auto) 6.2 (2.0-11.0) % Eos % (Auto) 2.0 (0.0-4.0) % Baso % (Auto) 0.6 (0.2-1.2) % PT 27.7 H D (10.0-12.8) SEC INR 2.5 (2.0-3.5) Sodium (136-145) mmol/L Potassium (3.5-5.1) mmol/L Chloride (98-107) mmol/L Carbon Dioxide (21-32) mmol/L Anion Gap (10-20) mmol/L BUN (7-18) mg/dL Creatinine (0.55-1.02) mg/dL Est Cr Clr Drug Dosing Estimated GFR (MDRD) Glucose (74-106) mg/dL Lactic Acid (0.4-2.0) mmol/L Calcium (8.5-10.1) mg/dL Corrected Calcium (8.5-10.1) mg/dL Magnesium (1.8-2.4) mg/dL Total Bilirubin (0.2-1.0) mg/dL AST (15-37) U/L ALT (14-59) U/L Alkaline Phosphatase (46-116) U/L Troponin I (<=0.056) ng/mL C-Reactive Protein (<=0.9) mg/dL NT-Pro-B Natriuret Pep (<=450) pg/mL Total Protein (6.4-8.2) g/dL Albumin (3.4-5.0) g/dL Globulin Albumin/Globulin Ratio Urine Color Light yellow (YELLOW) Urine Appearance Clear (CLEAR) Urine pH 7.0 (5.0-8.0) Ur Specific [place] 1.015 Urine Protein Trace H (NEGATIVE) mg/dL Urine Glucose (UA) Negative (NEGATIVE) mg/dL Urine Ketones Negative (NEGATIVE) mg/dL Urine Occult Blood Small H (NEGATIVE) Urine Nitrite Negative (NEGATIVE) Urine Bilirubin Negative (NEGATIVE) Urine Urobilinogen 0.2 (0.2) EU/dL Ur Leukocyte Esterase Negative (NEGATIVE) Urine RBC 0-5 (NOT SEEN) /HPF Urine WBC 0-5 (NOT SEEN) /HPF Ur Squamous Epith Cells Few H (NEGATIVE) /HPF Urine Bacteria Not seen (NEGATIVE) /HPF Urine Mucus Not seen (NEGATIVE) /LPF 10/19/19 10/19/19 Range/Units 20:20 20:20 WBC (4.0-10.0) x10^3/uL RBC (4.00-5.50) x10^6/uL Hgb (12.0-16.0) g/dL Hct (33.0-47.0) % MCV (78.0-93.0) fL MCH (26.0-32.0) pg MCHC (32.0-36.0) g/dL RDW Coeff of Samuel (10.0-15.0) % Plt Count (130-400) x10^3/uL Neut % (Auto) (50.0-80.0) % Lymph % (Auto) (25.0-50.0) % [place] % (Auto) (2.0-11.0) % Eos % (Auto) (0.0-4.0) % Baso % (Auto) (0.2-1.2) % PT (10.0-12.8) SEC INR (2.0-3.5) Sodium 141 (136-145) mmol/L Potassium 3.8 (3.5-5.1) mmol/L Chloride 101 (98-107) mmol/L Carbon Dioxide 30 (21-32) mmol/L Anion Gap 13.8 (10-20) mmol/L BUN 11 (7-18) mg/dL Creatinine 1.1 H (0.55-1.02) mg/dL Est Cr Clr Drug Dosing TNP Estimated GFR (MDRD) 48 Glucose 90 (74-106) mg/dL Lactic Acid 1.0 (0.4-2.0) mmol/L Calcium 8.9 (8.5-10.1) mg/dL Corrected Calcium 9.62 (8.5-10.1) mg/dL Magnesium 1.4 L (1.8-2.4) mg/dL Total Bilirubin 0.6 (0.2-1.0) mg/dL AST 42 H (15-37) U/L ALT 64 H (14-59) U/L Alkaline Phosphatase 79 (46-116) U/L Troponin I < 0.017 (<=0.056) ng/mL C-Reactive Protein 4.8 H (<=0.9) mg/dL NT-Pro-B Natriuret Pep 2696 H (<=450) pg/mL Total Protein 7.1 (6.4-8.2) g/dL Albumin 3.1 L (3.4-5.0) g/dL Globulin 4.0 Albumin/Globulin Ratio 0.78 Urine Color (YELLOW) Urine Appearance (CLEAR) Urine pH (5.0-8.0) Ur Specific [place] Urine Protein (NEGATIVE) mg/dL Urine Glucose (UA) (NEGATIVE) mg/dL Urine Ketones (NEGATIVE) mg/dL Urine Occult Blood (NEGATIVE) Urine Nitrite (NEGATIVE) Urine Bilirubin (NEGATIVE) Urine Urobilinogen (0.2) EU/dL Ur Leukocyte Esterase (NEGATIVE) Urine RBC (NOT SEEN) /HPF Urine WBC (NOT SEEN) /HPF Ur Squamous Epith Cells (NEGATIVE) /HPF Urine Bacteria (NEGATIVE) /HPF Urine Mucus (NEGATIVE) /LPF Meds: Medications Generic Name Dose Route Start Last Admin Trade Name Freq PRN Reason Stop Dose Admin Sodium Chloride 10 ml 10/19/19 19:53 Saline Flush FLUSH ASDIRECTED PRN Keep Vein Open Discontinued Medications Generic Name Dose Route Start Last Admin Trade Name Freq PRN Reason Stop Dose Admin Ceftriaxone Sodium 2 gm 10/19/19 20:53 Rocephin IVPUSH 10/19/19 20:54 STAT ONE Oseltamivir Phosphate 75 mg 10/19/19 21:01 Tamiflu PO 10/19/19 21:02 ONETIME ONE - Radiology Interpretation Free Text/Narrative:: Cardiomegaly, CHF Bibasilar infiltrates Departure - Departure Time of Disposition: 21:07 Disposition: Admitted As Inpatient 66 Clinical Impression: CHF exacerbation, Influenza B, CAP (community acquired pneumonia) - Discharge Information Referrals: Gerardo Worley MD [Primary Care Provider] - Sepsis Event Note - Focused Exam Date Exam was Performed: 10/19/19 Time Exam was Performed: 21:07 - Problem List Review Problem List Initiated/Reviewed/Updated: Yes - My Orders Last 24 Hours: My Active Orders 10/19/19 19:53 Sodium Chloride 0.9% [Saline Flush] 10 ml FLUSH ASDIRECTED PRN 10/19/19 19:54 EKG Documentation Completion [RC] STAT 10/19/19 19:56 Blood Culture x2 Reflex Set [OM.PC] Stat Peripheral IV Insertion Adult [OM.PC] Routine 10/19/19 20:20 CULTURE BLOOD [BC] Stat 10/19/19 20:25 CULTURE BLOOD [BC] Stat 10/19/19 21:05 Patient Status [ADT] Routine - Assessment/Plan Last 24 Hours: My Active Orders 10/19/19 19:53 Sodium Chloride 0.9% [Saline Flush] 10 ml FLUSH ASDIRECTED PRN 10/19/19 19:54 EKG Documentation Completion [RC] STAT 10/19/19 19:56 Blood Culture x2 Reflex Set [OM.PC] Stat Peripheral IV Insertion Adult [OM.PC] Routine 10/19/19 20:20 CULTURE BLOOD [BC] Stat 10/19/19 20:25 CULTURE BLOOD [BC] Stat 10/19/19 21:05 Patient Status [ADT] Routine Plan: Pt. will be admitted acutely. Osito Odonnell will be admitting. Pt. was given rocephin 2gm IV. She was also given tamiflu 75mg in ER. She is feeling much better and denies any current shortness of breath. Family was present during care and are aware of the plan. All questions were answered.
--- NOTE | 2019-10-19 20:51 | CR ---
[id number] RAD/RAD Chest Portable EXAM: PORTABLE CHEST INDICATION: Shortness of breath and fever. COMPARISON: January 14, 2014. DISCUSSION: Portable technique and body habitus somewhat limit this evaluation. The heart is enlarged with mild central vascular congestion. There is mild bibasilar atelectasis with or infiltrates not excluded. Mild to moderate elevation of the right hemidiaphragm. Partially imaged left shoulder arthroplasty. Chronic healed right clavicle fracture. IMPRESSION: 1. Cardiomegaly with early central vascular congestion. 2. Mild bibasilar infiltrates are suggested. Javy Iyer MD 10/19/192049 Thank you for allowing us to participate in the care of your patient.
[2019-10-19] MEDS ORDERED: cefTRIAXone 2 GM Vial IVPUSH ONE (20:53)
[2019-10-19 21:01] LABS: CHLORIDE,CL 101 mmol/L (98-107); SODIUM,NA 141 mmol/L (136-145)
[2019-10-19] MEDS ORDERED: Oseltamivir 75 MG Cap PO ONE (21:01)
[2019-10-19 21:03] LABS: ANION GAP 13.8 mmol/L (10-20)
[2019-10-19] MEDS ORDERED: Ondansetron 4 MG/2 ML SDV IV PRN (22:12)
[2019-10-19] MEDS ORDERED: Albuterol/Ipratropium 3.0-0.5 MG/3 ML Neb Soln INH PRN (23:00)
[2019-10-19] MEDS ORDERED: Clobetasol 0.05% Crm 30 GM Tube TOP PRN (23:30)
[2019-10-19] MEDS ORDERED: Magnesium Sulfate/Water 2 GM in Premix Bag 1 BAG IV ONE (23:33)
[2019-10-19] MEDS ORDERED: Triamcinolone Acetonide 0.1% Crm 15 GM Tube TOP PRN (23:45)
[2019-10-20] MEDS: traZODone 50 MG Tab PO SCH ×2 (00:05→20:19)
[2019-10-20] MEDS: Sodium Chloride 0.9% 10 ML Syringe FLUSH PRN (00:05)
[2019-10-20] MEDS: Omeprazole 20 MG Cap.CR PO SCH (06:43)
[2019-10-20] MEDS: cefTRIAXone 1 GM Vial IVPUSH SCH (08:07)
[2019-10-20] MEDS: Calcium Citrate/Vitamin D3 315 MG-250 Unit Tab PO SCH (08:07)
[2019-10-20] MEDS: Cholecalciferol (Vitamin D3) 25 MCG Tab PO SCH (08:07)
[2019-10-20] MEDS: FLUoxetine 20 MG Cap PO SCH (08:07)
[2019-10-20 08:08] LABS: ANION GAP 12.6 mmol/L (10-20)
[2019-10-20] MEDS: Oseltamivir 75 MG Cap PO SCH ×2 (08:08→20:18)
[2019-10-20] MEDS: Hydrochlorothiazide/Triamterene 25-37.5 Tab PO SCH (08:08)
[2019-10-20] MEDS: Metoprolol Succinate 25 MG Tab.ER PO SCH (08:08)
[2019-10-20] MEDS: Fluticasone-Salmeterol 232-14 MCG Powder Inhalent INH SCH ×2 (08:08→20:19)
[2019-10-20] MEDS: Fish Oil/Omega-3 Fatty Acids 1 Gm Cap PO SCH ×2 (08:08→17:56)
[2019-10-20] MEDS: Fluticasone Propionate Nasal Spray 16 GM Bottle NASBOTH SCH ×2 (08:09→21:04)
[2019-10-20] MEDS: Azithromycin 500 MG in Sodium Chloride 0.9% 250 ML IV SCH (08:15)
[2019-10-20] MEDS ORDERED: Magnesium Sulfate/Water 2 GM in Premix Bag 1 BAG IV ONE (11:30)
[2019-10-20] MEDS: Warfarin 2.5 MG Tab PO SCH (13:55)
[2019-10-20] MEDS: Aspirin 81 MG Tab.EC PO SCH (20:18)
[2019-10-20] MEDS: Simvastatin 20 MG Tab PO SCH (20:18)
[2019-10-21] MEDS: Omeprazole 20 MG Cap.CR PO SCH (06:13)
[2019-10-21] MEDS: Fluticasone Propionate Nasal Spray 16 GM Bottle NASBOTH SCH ×3 (06:15→19:50)
[2019-10-21 08:19] LABS: ANION GAP 8.8 mmol/L (10-20)
[2019-10-21] MEDS: cefTRIAXone 1 GM Vial IVPUSH SCH (09:50)
[2019-10-21] MEDS: Azithromycin 500 MG in Sodium Chloride 0.9% 250 ML IV SCH (09:50)
[2019-10-21] MEDS: Calcium Citrate/Vitamin D3 315 MG-250 Unit Tab PO SCH (09:55)
[2019-10-21] MEDS: FLUoxetine 20 MG Cap PO SCH (09:55)
[2019-10-21] MEDS: Fish Oil/Omega-3 Fatty Acids 1 Gm Cap PO SCH ×2 (09:56→18:02)
[2019-10-21] MEDS: Hydrochlorothiazide/Triamterene 25-37.5 Tab PO SCH (09:56)
[2019-10-21] MEDS: Cholecalciferol (Vitamin D3) 25 MCG Tab PO SCH (09:57)
[2019-10-21] MEDS: Metoprolol Succinate 25 MG Tab.ER PO SCH (10:00)
[2019-10-21] MEDS: Oseltamivir 75 MG Cap PO SCH ×2 (10:01→19:51)
[2019-10-21] MEDS: Fluticasone-Salmeterol 232-14 MCG Powder Inhalent INH SCH ×2 (10:03→19:52)
[2019-10-21] MEDS: Sodium Chloride 0.9% 10 ML Syringe FLUSH PRN (10:08)
[2019-10-21] MEDS ORDERED: Magnesium Sulfate/Water 4 GM in Premix Bag 1 BAG IV ONE (10:17)
[2019-10-21] MEDS: Warfarin 2.5 MG Tab PO SCH (15:29)
[2019-10-21] MEDS: traZODone 50 MG Tab PO SCH (19:51)
[2019-10-21] MEDS: Aspirin 81 MG Tab.EC PO SCH (19:51)
[2019-10-21] MEDS: Simvastatin 20 MG Tab PO SCH (19:51)
[2019-10-22] MEDS: Omeprazole 20 MG Cap.CR PO SCH (06:07)
[2019-10-22 07:39] LABS: ANION GAP 11.8 mmol/L (10-20)
[2019-10-22] MEDS: FLUoxetine 20 MG Cap PO SCH (09:03)
[2019-10-22] MEDS: Hydrochlorothiazide/Triamterene 25-37.5 Tab PO SCH (09:03)
[2019-10-22] MEDS: cefTRIAXone 1 GM Vial IVPUSH SCH (09:03)
[2019-10-22] MEDS: Fish Oil/Omega-3 Fatty Acids 1 Gm Cap PO SCH ×2 (09:04→19:23)
[2019-10-22] MEDS: Calcium Citrate/Vitamin D3 315 MG-250 Unit Tab PO SCH (09:05)
[2019-10-22] MEDS: Cholecalciferol (Vitamin D3) 25 MCG Tab PO SCH (09:05)
[2019-10-22] MEDS: Oseltamivir 75 MG Cap PO SCH ×2 (09:05→19:23)
[2019-10-22] MEDS: Metoprolol Succinate 25 MG Tab.ER PO SCH (09:06)
[2019-10-22] MEDS: Fluticasone Propionate Nasal Spray 16 GM Bottle NASBOTH SCH ×2 (09:07→19:24)
[2019-10-22] MEDS: Fluticasone-Salmeterol 232-14 MCG Powder Inhalent INH SCH ×2 (09:07→19:25)
[2019-10-22] MEDS: Azithromycin 500 MG in Sodium Chloride 0.9% 250 ML IV SCH (09:15)
--- NOTE | 2019-10-22 10:38 | HP ---
CHIEF COMPLAINT: Shortness of breath. HISTORY OF PRESENT ILLNESS: The patient presented to the emergency room with complaints of increased shortness of breath. The patient stated that she had been having problems ambulating around the house and had been unable to bathe due to fatigue and shortness of breath. The patient did not have any chills at home, but was running a low-grade fever on admission to the emergency room. The patient was in the clinic on 10/10/2019 with increased peripheral edema and a 7- pound weight gain in 2 weeks. The patient does have a history of diastolic heart dysfunction and mitral valve regurgitation per echo in 2017. The patient has a history of obstructive sleep apnea and is on CPAP. The patient quit smoking in 1974. The patient states that she was having some chest heaviness and shortness of breath over the past several days. Denies any chest pain or radiation into the jaw, arms, neck, or back. She is not currently on a loop diuretic, but is on hydrochlorothiazide. She also has a history of AFib and is on anticoagulation with Coumadin. The patient has a history of COPD and is on Symbicort. The patient was given a DuoNeb breathing treatment while being transported by EMS. She was also given 40 mg of IV Lasix per EMS. The patient reported improvement upon arrival to the emergency room. The patient did have an EKG performed which showed a sinus rhythm with no acute ST-T changes. PAST MEDICAL HISTORY: 1. Essential hypertension. 2. Chronic atrial fibrillation. 3. Coronary artery disease. 4. Valvular heart disease and mild diastolic dysfunction. 5. Obstructive sleep apnea, on CPAP. 6. Hypercholesteremia. 7. Impaired fasting glucose. 8. Morbid obesity. 9. Depression. 10.Gastroesophageal reflux disease. PAST SURGICAL HISTORY: 1. Bunionectomy. 2. Osteotomy. 3. Hammertoes. 4. Ventral hernia repair. 5. Shoulder arthroplasty. FAMILY HISTORY: Noncontributory. SOCIAL HISTORY: The patient is a former smoker, quit in 1974. The patient does not use any alcohol. The patient is not . MEDICATIONS: 1. Toprol-XL 100 mg 1 tablet p.o. daily. 2. Triamterene/hydrochlorothiazide 75 mg/50 mg 1 tablet p.o. daily. 3. Symbicort 160/4.5 two puffs inhalation twice daily. 4. Clobetasol ointment twice daily as needed. 5. Prozac 60 mg daily. 6. Omeprazole 40 mg 1 capsule p.o. daily. 7. Simvastatin 20 mg 1 tablet p.o. daily. 8. Trazodone 100 mg 1 tablet p.o. daily at bedtime. 9. Triamcinolone 0.1% twice daily as needed. 10.Lovaza 1 g two capsules p.o. twice daily. 11.Coumadin 2.5 mg daily. 12.Flonase 1 spray to each nostril twice daily. 13.DuoNebs 4 times daily as needed for shortness of breath. 14.Continuous oxygen 2 L every night at bedtime. 15.Aspirin 81 mg 1 tablet p.o. daily. 16.Calcium carbonate 1 capsule p.o. daily. 17.Vitamin D 5000 units 1 capsule daily. LABORATORY WORK: 1. CBC: White blood cell count 9.0, hemoglobin 11.6, hematocrit 35.9, platelets are 214,000. 2. PT/INR 27.7/2.5. 3. CMP: Sodium is 141, potassium is 3.8, chloride is 101, CO2 is 30, anion gap is 13.8, BUN is 11, creatinine 1.0, GFR is 48, glucose is 90, calcium 8.9, bilirubin 0.6, AST is 42, ALT is 64, alkaline phosphatase is 79, protein 7.1. 4. Lactic acid 1.0. 5. Magnesium 1.4. 6. Troponin less than 0.017. 7. BNP is 2696. 8. CRP is 4.8. REVIEW OF SYSTEMS: General: Negative. Respiratory: Shortness of breath, dry cough. Cardiovascular: Negative. Abdomen: Negative. Skin: Negative. Neurological: Negative. PHYSICAL EXAMINATION: General Presentation: The patient is alert. The patient is not in any acute distress. The patient is cooperative. Respiratory: Lungs are decreased throughout. The patient has crackles bibasilar. Cardiovascular: Regular rate and rhythm, no murmurs. Abdomen: Soft. Hypoactive bowel sounds x4. Nontender. Skin: Intact and dry. Warm. Neurological: The patient is alert. The patient is oriented to person, place, and time. No focal neurological deficit. ASSESSMENT: 1. Community-acquired pneumonia. 2. Acute congestive heart failure exacerbation. 3. Influenza B. PLAN: The patient will be admitted to the acute care floor at [facility] for primary diagnosis of community-acquired pneumonia, acute CHF exacerbation, influenza B. The patient will be started on Tamiflu given her comorbid problems and advanced age. The patient will also be started on azithromycin and Rocephin IV for her community-acquired pneumonia. The patient will be on a fluid restriction. We will continue the patient's current diuretics. The patient will be weighed daily. The patient is already anticoagulated with Coumadin for DVT prophylaxis and atrial fibrillation. The patient does wish to be a full code. The patient does wish to be transferred to a higher level of care should the need arise. We will recheck labs in the morning. TB: 10/19/2019 23:12:17 MODL: 10/20/2019 00:39:17 /[id number]
--- NOTE | 2019-10-22 10:38 | PN ---
Progress Note for MEME SHEPPARD Date: 10/20/2019 Room #: VM.211 CHIEF COMPLAINT: 1. Shortness of breath. 2. Fatigue. 3. Fever. SUBJECTIVE: Hospital day #2 for a 78-year-old white female who was admitted yesterday for CHF exacerbation, community-acquired pneumonia, influenza B. The patient was started on antibiotic therapy for the community-acquired pneumonia as well as oral Tamiflu for the influenza. The patient has been doing well since her admission. The patient states that she is feeling better today. The patient is in much better spirits. She states that her cough is getting better. Her cough has been dry. The patient has not had any focal neurological problems. The patient denies any headaches, dizziness, or lightheadedness. The patient currently denies any chest pain or palpitations. Patient has not had any worsening shortness of breath. The patient denies any abdominal pain. No nausea, vomiting, or diarrhea. OBJECTIVE: General Presentation: Patient is alert. Patient is cooperative. Patient does not appear to be in any acute distress. Respiratory: The patient continues with bibasilar crackles, otherwise, lung sounds are clear. Cardiovascular: Regular rate and rhythm, no murmur. Abdomen: Patient is obese, bowel sounds are hypoactive x4, abdomen is nontender. Skin: Dry and intact. Neurological: The patient is alert. Sensation is intact. The patient is oriented to person, place, and time. Vital Signs: Temperature is 98.4, pulse is 61, blood pressure 137/65, respiratory rate is 20, oxygen saturations are 94%. LABORATORY STUDIES: 1. CBC: White blood cell count 10.2, hematocrit 31.7, platelet platelets are 178,000. 2. PT/INR 2.3. 3. BMP: Sodium is 142, potassium is 3.6, chloride is 104, CO2 is 29, anion gap is 12.6, BUN is 10, creatinine is 1.1, GFR is 48, calcium 8.2, magnesium 1.7. ASSESSMENT: 1. Acute congestive heart failure exacerbation. 2. Influenza B. 3. Community-acquired pneumonia. PLAN: We will continue the patient on the current antibiotics. The patient does seem to be improving. The patient continues to wish to be a full code. Patient does wish to be transferred to higher level of care should the need arise. We will encourage ambulation as much as possible and as much as the patient can handle today. We will recheck lab work in the morning. We will consider discharge tomorrow if the patient's lung status improves and she remains hemodynamically stable. TB: 10/20/2019 14:39:47 MODL: 10/20/2019 16:38:56 /[id number]
--- NOTE | 2019-10-22 10:38 | PN ---
Progress Note for MEME SHEPPARD Date: 10/21/2019 Room #: VM.211 CHIEF COMPLAINT: Shortness of breath. SUBJECTIVE: Hospital day #2 for a 78-year-old female patient who was admitted through the emergency room yesterday for shortness of breath. The patient stated at that time she was having trouble ambulating around her house and had been unable to bathe due to fatigue and shortness of breath. The patient did not have any chills, but had a low-grade fever. The patient was also noted to have a 7-pound weight gain in clinic over the last week. The patient does have a history of diastolic heart failure with mitral regurgitation. Upon admission to the emergency room, the patient was diagnosed with community-acquired pneumonia, acute exacerbation of CHF, and influenza B. The patient states today that she is feeling better. She continues to have some shortness of breath, but this has improved. The patient's appetite has been good. She has not had any focal neurological deficits. The patient denies any chest pain or palpitations. She does have an intermittent dry cough. The patient has not had any abdominal pain, nausea, vomiting, or diarrhea. PHYSICAL EXAMINATION: General Presentation: The patient is alert. Patient is in no acute distress. Patient is cooperative. Respiratory: Lung sounds are decreased throughout, but there is no crackles or rhonchi and no wheezing. Cardiovascular: Regular rate and rhythm, no murmur. Abdomen: Soft, nontender. Bowel sounds are hypoactive x4. Skin: Dry and intact. Neurological: Patient is alert. Patient is oriented to person, place, and time. Sensation is intact. Vital Signs: Blood pressure 149/56, weight is 304 pounds, pulse is 61, oxygen saturation is 98% on room air, temperature is 96.6. LABORATORY WORK: 1. CBC: White blood cell count 5.8, hemoglobin 10.3, hematocrit 32.3. 2. INR is 2.1. 3. BMP: Sodium is 140, potassium 3.8, chloride is 104, CO2 is 31, anion gap is 8.8, BUN is 12, creatinine 1.1. GFR is 48, calcium is 8.3. 4. Magnesium 1.5. IMPRESSION: 1. Community-acquired pneumonia. 2. Influenza B. 3. Acute on chronic congestive heart failure exacerbation. PLAN: The patient will continue with IV antibiotics and Tamiflu. We will continue to monitor weights. The patient does need to ambulate today. We will continue all other home medications. Anticipated discharge over the next 1 to 2 days if the patient continues to do well. The patient is a full code. The patient does wish to be transferred to a higher level of care should the need arise. We will recheck blood work in the morning. TB: 10/21/2019 10:52:21 MODL: 10/21/2019 15:21:51 /[id number]
--- NOTE | 2019-10-22 10:59 | PCM.PN ---
- General Info Date of Service: 10/22/19 Admission Dx/Problem (Free Text): History: Just prior to admission on 10/19 she says she was so dyspneic she could not walk from one room to another. Normally, with her morbid obesity, she uses oxygen just at night along with her CPAP. She has been on Maxzide for about 10 years, has a DX of CHF but never needed Lasix. She is familiar with it because of her . On admission she got IV Lasix in the ambulance and her dyspnea improved dramatically even by the time she arrived in ER, so much of it must have been fluid overload. Since admission, she is feeling much better, still has nasal oxygen in place during the day but is not expecting to use it at home, and was hoping to go home today. I note her Mg++ was 1.4-1.6 since admission, she thinks she has taken magnesium before but records do not confirm that. She is on Coumadin for intermittent atrial fibrillation, apparently is regular sometimes. Her INR was therapeutic. Exam: -Alert and lucid, comfortable -Heart sounds are normal and actually regular -Lungs clear bilaterally even down to the bases Impression: -Influenza with bilateral pneumonia, doing well on Rocephin and Zithromax, will finish that tomorrow -If her CXR isnt worsening tomorrow, should be able to go home -Much of her initial dyspnea was from CHF, improved with a single dose of IV Lasix -Hypomagnesemia -Intermittent atrial fibrillation, on Coumadin although rhythm very regular today -Morbid obesity with sleep apnea, uses CPAP with nighttime oxygen at home Plan: -Change from Maxzide to Lasix 20 mg daily -Start magnesium oxide 400 mg daily -Repeat CXR tomorrow -Anticipate D/C tomorrow, to use oxygen at night with her CPAP only, nurses will try to wean today - Patient Data Vitals - Most Recent: Last Vital Signs Temp 36.6 C 10/22/19 10:00 Pulse 77 10/22/19 10:00 Resp 18 10/22/19 10:00 BP 156/88 H 10/22/19 10:00 Pulse Ox 94 L 10/22/19 10:00 Weight - Most Recent: 139.616 kg I&O - Last 24 Hours: Intake & Output 10/21/19 10/22/19 10/22/19 22:59 06:59 14:59 Intake Total 2150 200 420 Output Total 2300 800 Balance -150 -600 420 Lab Results Last 24 Hours: Laboratory Results - last 24 hr 10/22/19 10/22/19 Range/Units 06:33 06:33 WBC 6.5 (4.0-10.0) x10^3/uL RBC 3.67 L (4.00-5.50) x10^6/uL Hgb 10.3 L (12.0-16.0) g/dL Hct 32.0 L (33.0-47.0) % MCV 87.2 (78.0-93.0) fL MCH 28.1 (26.0-32.0) pg MCHC 32.2 (32.0-36.0) g/dL RDW Coeff of Samuel 13.7 (10.0-15.0) % Plt Count 187 (130-400) x10^3/uL Neut % (Auto) 61.8 (50.0-80.0) % Lymph % (Auto) 28.0 (25.0-50.0) % [place] % (Auto) 7.4 (2.0-11.0) % Eos % (Auto) 2.3 (0.0-4.0) % Baso % (Auto) 0.5 (0.2-1.2) % Sodium 138 (136-145) mmol/L Potassium 3.8 (3.5-5.1) mmol/L Chloride 102 (98-107) mmol/L Carbon Dioxide 28 (21-32) mmol/L Anion Gap 11.8 (10-20) mmol/L BUN 12 (7-18) mg/dL Creatinine 1.1 H (0.55-1.02) mg/dL Est Cr Clr Drug Dosing 33.34 mL/min Estimated GFR (MDRD) 48 Glucose 102 (74-106) mg/dL Calcium 8.4 L (8.5-10.1) mg/dL Magnesium 1.6 L (1.8-2.4) mg/dL [place] Results Last 24 Hours: Microbiology 10/19/19 20:20 Aerobic Blood Culture - Preliminary Blood - Venous NO GROWTH AFTER 2 DAYS Anaerobic Blood Culture - Preliminary NO GROWTH AFTER 2 DAYS 10/19/19 20:25 Aerobic Blood Culture - Preliminary Blood - Venous - Lab Draw NO GROWTH AFTER 2 DAYS Anaerobic Blood Culture - Final Med Orders - Current: Current Medications Albuterol/Ipratropium (Duoneb 3.0-0.5 Mg/3 Ml) 3 ml INH QID PRN PRN Reason: Shortness of Breath Aspirin (Halfprin) 81 mg PO BEDTIME [facility] Last Admin: 10/21/19 19:51 Dose: 81 mg Calcium Citrate (Calcium Citrate + D) 2 tab PO DAILY [facility] Last Admin: 10/22/19 09:05 Dose: 2 tab Ceftriaxone Sodium (Rocephin) 1 gm IVPUSH DAILY [facility] Last Admin: 10/22/19 09:03 Dose: 1 gm Cholecalciferol (Vitamin D3) 125 mcg PO DAILY [facility] Last Admin: 10/22/19 09:05 Dose: 125 mcg Clobetasol Propionate (Clobetasol 0.05%) 0 gm TOP BID PRN PRN Reason: Rash Fish Oil (Fish Oil) 2 gm PO BIDMEALS [facility] Last Admin: 10/22/19 09:04 Dose: 2 gm Fluoxetine HCl (Prozac) 60 mg PO DAILY [facility] Last Admin: 10/22/19 09:03 Dose: 60 mg Fluticasone Propionate (Flonase) 0 gm NASBOTH BID [facility] Last Admin: 10/22/19 09:07 Dose: 1 spray Furosemide (Lasix) 20 mg PO DAILY [facility] Azithromycin 500 mg/ Sodium (Chloride) 250 mls @ 250 mls/hr IV DAILY [facility] Last Admin: 10/22/19 09:15 Dose: 250 mls/hr Magnesium Oxide (Magnesium Oxide) 400 mg PO DAILY [facility] Metoprolol Succinate (Toprol Xl) 100 mg PO DAILY [facility] Last Admin: 10/22/19 09:06 Dose: 100 mg Omeprazole (Omeprazole) 40 mg PO DAILY@0700 [facility] Last Admin: 10/22/19 06:07 Dose: 40 mg Ondansetron HCl (Zofran) 4 mg IV Q4H PRN PRN Reason: Nausea/Vomiting Last Admin: 10/20/19 00:05 Dose: 4 mg Oseltamivir Phosphate (Tamiflu) 75 mg PO BID [facility] Stop: 10/24/19 08:01 Last Admin: 10/22/19 09:05 Dose: 75 mg Pharmacy Consult (Consult To Pharmacy) 1 each .XX ASDIRECTED [facility] Fluticasone/Salmeterol (Fluticasone-Salmeterol 232-14 Mcg Powder Inha) 1 puff INH BID [facility] Last Admin: 10/22/19 09:07 Dose: 1 puff Simvastatin (Zocor) 20 mg PO BEDTIME [facility] Last Admin: 10/21/19 19:51 Dose: 20 mg Sodium Chloride (Saline Flush) 10 ml FLUSH ASDIRECTED PRN PRN Reason: Keep Vein Open Last Admin: 10/21/19 10:08 Dose: 10 ml Trazodone HCl (Trazodone) 100 mg PO BEDTIME [facility] Last Admin: 10/21/19 19:51 Dose: 100 mg Triamcinolone Acetonide (Triamcinolone Acetonide 0.1% Crm) 0 gm TOP BID PRN PRN Reason: Rash Warfarin Sodium (Coumadin) 2.5 mg PO DAILY@1400 [facility] Last Admin: 10/21/19 15:29 Dose: 2.5 mg Discontinued Medications Ceftriaxone Sodium (Rocephin) 2 gm IVPUSH STAT ONE Stop: 10/19/19 20:54 Last Admin: 10/19/19 21:09 Dose: 2 gm Magnesium Sulfate 2 gm/ Premix 50 mls @ 25 mls/hr IV ONETIME ONE Stop: 10/20/19 01:32 Last Admin: 10/20/19 00:04 Dose: 25 mls/hr Magnesium Sulfate 2 gm/ Premix 50 mls @ 25 mls/hr IV ONETIME ONE Stop: 10/20/19 13:29 Last Admin: 10/20/19 12:20 Dose: 25 mls/hr Magnesium Sulfate 4 gm/ Premix 100 mls @ 25 mls/hr IV ONETIME ONE Stop: 10/21/19 14:16 Last Admin: 10/21/19 11:30 Dose: 25 mls/hr Oseltamivir Phosphate (Tamiflu) 75 mg PO ONETIME ONE Stop: 10/19/19 21:02 Last Admin: 10/19/19 21:07 Dose: 75 mg Triamterene/HCTZ (Maxzide 25-37.5 Mg) 2 each PO DAILY [facility] Last Admin: 10/22/19 09:03 Dose: 2 each Sepsis Event Note - Evaluation Sepsis Screening Result: No Definite Risk - Focused Exam Vital Signs: Vital Signs Temp Temp Pulse Pulse Resp BP BP 10/22/19 10:00 36.6 C 77 18 156/88 H 10/22/19 09:06 60 116/72 10/22/19 08:00 10/22/19 05:27 36.6 C 60 18 116/72 10/22/19 01:57 36.6 C 63 17 108/43 L Pulse Ox Pulse Ox 10/22/19 10:00 94 L 10/22/19 09:06 10/22/19 08:00 97 10/22/19 05:27 93 L 10/22/19 01:57 91 L Date Exam was Performed: 10/22/19 Time Exam was Performed: 10:58 - Problem List Review Problem List Initiated/Reviewed/Updated: Yes - My Orders Last 24 Hours: My Active Orders 10/23/19 07:30 CXR [Chest 2V] [CR] Routine 10/23/19 08:00 Furosemide [Lasix] 20 mg PO DAILY Magnesium Oxide 400 mg PO DAILY
[2019-10-22] MEDS: Furosemide 20 MG Tab PO SCH (12:10)
[2019-10-22] MEDS: Magnesium Oxide 400 MG Tab PO SCH (12:10)
[2019-10-22] MEDS: Warfarin 2.5 MG Tab PO SCH (13:54)
[2019-10-22] MEDS: traZODone 50 MG Tab PO SCH (19:23)
[2019-10-22] MEDS: Simvastatin 20 MG Tab PO SCH (19:24)
[2019-10-22] MEDS: Aspirin 81 MG Tab.EC PO SCH (19:25)
[2019-10-23] MEDS: Omeprazole 20 MG Cap.CR PO SCH (06:17)
[2019-10-23] MEDS ORDERED: Azithromycin 250 MG Tab PO SCH (08:00)
[2019-10-23] MEDS: Oseltamivir 75 MG Cap PO SCH (08:23)
[2019-10-23] MEDS: cefTRIAXone 1 GM Vial IVPUSH SCH (08:23)
[2019-10-23] MEDS: Fish Oil/Omega-3 Fatty Acids 1 Gm Cap PO SCH (08:23)
[2019-10-23] MEDS: Cholecalciferol (Vitamin D3) 25 MCG Tab PO SCH (08:24)
[2019-10-23] MEDS: FLUoxetine 20 MG Cap PO SCH (08:25)
[2019-10-23] MEDS: Calcium Citrate/Vitamin D3 315 MG-250 Unit Tab PO SCH (08:25)
[2019-10-23] MEDS: Furosemide 20 MG Tab PO SCH (08:26)
[2019-10-23] MEDS: Magnesium Oxide 400 MG Tab PO SCH (08:26)
[2019-10-23] MEDS: Metoprolol Succinate 25 MG Tab.ER PO SCH (08:27)
[2019-10-23] MEDS: Fluticasone Propionate Nasal Spray 16 GM Bottle NASBOTH SCH (08:28)
[2019-10-23] MEDS: Fluticasone-Salmeterol 232-14 MCG Powder Inhalent INH SCH (08:28)
--- NOTE | 2019-10-23 08:30 | CR ---
[id number] RAD/RAD Chest PA And Lateral EXAM: RAD Chest PA And Lateral INDICATION: INFLUENZA, PNEUMONIA COMPARISON: October 19, 2019. DISCUSSION: Cardiomediastinal silhouette is stable in size and contour. Pulmonary hyperinflation. Bibasilar subsegmental atelectasis and/or infiltrates are not significantly changed when compared to the prior. Vascular crowding. 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 IMPRESSION: Stable chest with bibasilar subsegmental atelectasis and or infiltrates. Kd Jama DO 10/23/19 0828 Thank you for allowing us to participate in the care of your patient.
[2019-10-23 13:41] VITALS: BP 121/46; PULSE 63
[2019-10-23] MEDS: Warfarin 2.5 MG Tab PO SCH (13:42)
--- NOTE | 2019-10-23 20:56 | PCM.DCSUM1 ---
Discharge Summary - Hospital Course Free Text/Narrative:: Final Diagnoses: -CHF with dyspnea -Influenza B with cough, mild bronchopneumonia -Hypomagnesemia Secondary Diagnoses: -Intermittent atrial fibrillation, on Coumadin Hypertension, controlled -Morbid obesity -Sleep apnea Reason for Admission: Came to ER with marked increase in dyspnea, difficulty from walking from one room to another. With fairly obvious signs of CHF she got IV Lasix in the ambulance and was considerably improved by the time of arrival in ER. Initial Findings: Hgb 11.6, WBC 9000, INR 2.5, Na+ 141, K+ 3.8, creatinine 1.1, see him corrected 9.6. Mild elevation of ALT, 64. Troponin negative, BNP elevated at 2700. Lung sounds diminished and some crackling rales. Heart exam normal. CXR suggestive of infiltrate but also showed cardiomegaly. Influenza test positive for type B. In spite of DX of intermittent atrial fibrillation her heart rhythm was regular. Treatment and Course in Hospital: Because of her dyspnea, infiltrates, and influenza type B, she was treated for pneumonia with Rocephin and Zithromax. She became afebrile shortly after admission and started to feel much less dyspneic. Her lab was OK except for the elevated BNP and Mg++ of 1.4. She was given IV Mg++ and switched to oral later. She finished 5 days of Zithromax and Rocephin and Tamiflu by the time of D/C. Repeat CXR on day of D/C was unchanged. Her heart rhythm remained regular throughout. She continued to get Coumadin. She was started on Lasix 20 mg daily on the second hospital day and her previous diuretic, Maxzide, was D /Cd. Started on magnesium oxide 400 mg daily. Condition ON Discharge: Says she can walk a normal distance with only mild dyspnea. She has been weaned from oxygen during the day, uses it only with CPAP at night. She was not reweighed. Heart sounds normal and regular, lungs clear, no signs of dyspnea, no tachypnea. Discharge Plan: -Stop Maxzide -Start Lasix 20 mg daily, Rx sent from her clinic chart to her pharmacy -Start magnesium oxide 400 mg daily, Rx sent from her clinic chart to her pharmacy -Stop her previous OTC magnesium -Keep appointment for shoulder injection at the clinic tomorrow. Diagnosis: Stroke: No Modified Craig Scale: No Signif.Disability Despite Sympt.Able to Carry Out Usual Act./Duties Modified Craig Scale Score: 1 - Discharge Data Discharge Date: 10/23/19 Discharge Disposition: Home, Self-Care 01 Condition: Good - Referral to Home Health Primary Care Physician: Gerardo Worley MD - Patient Summary/Data Consults: Consultations 10/19/19 22:12 OT Evaluation and Treatment [CONS] Routine PT Evaluation and Treatment [CONS] Routine - Patient Instructions Diet: Renal Diet - Discharge Plan *PRESCRIPTION DRUG MONITORING PROGRAM REVIEWED*: Not Applicable *COPY OF PRESCRIPTION DRUG MONITORING REPORT IN PATIENT RITA: Not Applicable Home Medications: Home Meds Budesonide/Formoterol [Symbicort 160-4.5 MCG] 2 puff INH BID 12/30/13 [History] Clobetasol [Temovate 0.05% Oint] 1 applic TOP BID PRN 12/30/13 [History] FLUoxetine [PROzac] 60 mg PO DAILY 12/30/13 [History] Fluticasone Propionate [Flonase] 1 spray NASBOTH BID 12/30/13 [History] Simvastatin [Zocor] 20 mg PO BEDTIME 12/30/13 [History] Warfarin [Coumadin] 2.5 mg PO DAILY 12/30/13 [History] traZODone 100 mg PO BEDTIME 12/30/13 [History] Aspirin [Halfprin] 81 mg PO BEDTIME 07/15/15 [History] Calcium Carbonate/Vitamin D3 [Calcium 600-Vit D3 800 Caplet] 1 tab PO DAILY 06/19 [History] Cholecalciferol (Vitamin D3) [Vitamin D3] 5,000 unit PO DAILY 07/15/15 [History] Omeprazole 40 mg PO ACBREAKFAST 07/15/15 [History] Triamcinolone Acetonide [Triamcinolone Acetonide 0.1% Oint] 1 applic TOP BID PRN 12/20/16 [History] Albuterol/Ipratropium [DuoNeb 3.0-0.5 MG/3 ML] 3 ml NEB QID PRN 10/19/19 [ History] [place]-3 Acid Ethyl Esters [Lovaza] 2 cap PO BIDMEALS 10/19/19 [History] Metoprolol Succinate [Toprol XL 100mg] 100 mg PO DAILY 10/22/19 [History] Furosemide [Lasix] 20 mg PO DAILY tablet 10/23/19 [Rx] Magnesium Oxide 400 mg PO DAILY tablet 10/23/19 [Rx] Forms: ED Department Discharge Referrals: Gerardo Worley MD [Primary Care Provider] - - Discharge Summary/Plan Comment DC Time >30 min.: No - Patient Data Vitals - Most Recent: Last Vital Signs Temp 36.3 C 10/23/19 13:39 Pulse 63 10/23/19 13:39 Resp 18 10/23/19 13:39 BP 121/46 L 10/23/19 13:39 Pulse Ox 91 L 10/23/19 13:39 Weight - Most Recent: 137.302 kg I&O - Last 24 hours: Intake & Output 10/23/19 10/23/19 10/23/19 06:59 14:59 22:59 Intake Total 800 780 Output Total 1800 2300 Balance -1000 -1520 Lab Results - Last 24 hrs: Laboratory Results - last 24 hr 10/23/19 Range/Units 09:31 PT 22.7 H (10.0-12.8) SEC INR 2.0 (2.0-3.5) KRYSTINA Results - Last 24 hrs: Microbiology 10/19/19 20:20 Aerobic Blood Culture - Preliminary Blood - Venous NO GROWTH AFTER 4 DAYS Anaerobic Blood Culture - Preliminary NO GROWTH AFTER 4 DAYS 10/19/19 20:25 Aerobic Blood Culture - Preliminary Blood - Venous - Lab Draw NO GROWTH AFTER 4 DAYS Anaerobic Blood Culture - Final Med Orders - Current: Current Medications Discontinued Medications Albuterol/Ipratropium (Duoneb 3.0-0.5 Mg/3 Ml) 3 ml INH QID PRN PRN Reason: Shortness of Breath Aspirin (Halfprin) 81 mg PO BEDTIME [facility] Last Admin: 10/22/19 19:25 Dose: 81 mg Azithromycin (Zithromax) 500 mg PO DAILY [facility] Stop: 10/24/19 08:01 Last Admin: 10/23/19 08:23 Dose: 500 mg Calcium Citrate (Calcium Citrate + D) 2 tab PO DAILY [facility] Last Admin: 10/23/19 08:25 Dose: 2 tab Ceftriaxone Sodium (Rocephin) 2 gm IVPUSH STAT ONE Stop: 10/19/19 20:54 Last Admin: 10/19/19 21:09 Dose: 2 gm Ceftriaxone Sodium (Rocephin) 1 gm IVPUSH DAILY [facility] Last Admin: 10/23/19 08:23 Dose: 1 gm Cholecalciferol (Vitamin D3) 125 mcg PO DAILY [facility] Last Admin: 10/23/19 08:24 Dose: 125 mcg Clobetasol Propionate (Clobetasol 0.05%) 0 gm TOP BID PRN PRN Reason: Rash Fish Oil (Fish Oil) 2 gm PO BIDMEALS [facility] Last Admin: 10/23/19 08:23 Dose: 2 gm Fluoxetine HCl (Prozac) 60 mg PO DAILY [facility] Last Admin: 10/23/19 08:25 Dose: 60 mg Fluticasone Propionate (Flonase) 0 gm NASBOTH BID [facility] Last Admin: 10/23/19 08:28 Dose: 1 spray Furosemide (Lasix) 20 mg PO DAILY [facility] Last Admin: 10/23/19 08:26 Dose: 20 mg Azithromycin 500 mg/ Sodium (Chloride) 250 mls @ 250 mls/hr IV DAILY [facility] Last Admin: 10/22/19 09:15 Dose: 250 mls/hr Magnesium Sulfate 2 gm/ Premix 50 mls @ 25 mls/hr IV ONETIME ONE Stop: 10/20/19 01:32 Last Admin: 10/20/19 00:04 Dose: 25 mls/hr Magnesium Sulfate 2 gm/ Premix 50 mls @ 25 mls/hr IV ONETIME ONE Stop: 10/20/19 13:29 Last Admin: 10/20/19 12:20 Dose: 25 mls/hr Magnesium Sulfate 4 gm/ Premix 100 mls @ 25 mls/hr IV ONETIME ONE Stop: 10/21/19 14:16 Last Admin: 10/21/19 11:30 Dose: 25 mls/hr Magnesium Oxide (Magnesium Oxide) 400 mg PO DAILY [facility] Last Admin: 10/23/19 08:26 Dose: 400 mg Metoprolol Succinate (Toprol Xl) 100 mg PO DAILY [facility] Last Admin: 10/23/19 08:27 Dose: 100 mg Omeprazole (Omeprazole) 40 mg PO DAILY@0700 [facility] Last Admin: 10/23/19 06:17 Dose: 40 mg Ondansetron HCl (Zofran) 4 mg IV Q4H PRN PRN Reason: Nausea/Vomiting Last Admin: 10/20/19 00:05 Dose: 4 mg Oseltamivir Phosphate (Tamiflu) 75 mg PO ONETIME ONE Stop: 10/19/19 21:02 Last Admin: 10/19/19 21:07 Dose: 75 mg Oseltamivir Phosphate (Tamiflu) 75 mg PO BID [facility] Stop: 10/24/19 08:01 Last Admin: 10/23/19 08:23 Dose: 75 mg Pharmacy Consult (Consult To Pharmacy) 1 each .XX ASDIRECTED [facility] Fluticasone/Salmeterol (Fluticasone-Salmeterol 232-14 Mcg Powder Inha) 1 puff INH BID [facility] Last Admin: 10/23/19 08:28 Dose: 1 puff Simvastatin (Zocor) 20 mg PO BEDTIME [facility] Last Admin: 10/22/19 19:24 Dose: 20 mg Sodium Chloride (Saline Flush) 10 ml FLUSH ASDIRECTED PRN PRN Reason: Keep Vein Open Last Admin: 10/21/19 10:08 Dose: 10 ml Trazodone HCl (Trazodone) 100 mg PO BEDTIME [facility] Last Admin: 10/22/19 19:23 Dose: 100 mg Triamcinolone Acetonide (Triamcinolone Acetonide 0.1% Crm) 0 gm TOP BID PRN PRN Reason: Rash Triamterene/HCTZ (Maxzide 25-37.5 Mg) 2 each PO DAILY [facility] Last Admin: 10/22/19 09:03 Dose: 2 each Warfarin Sodium (Coumadin) 2.5 mg PO DAILY@1400 [facility] Last Admin: 10/23/19 13:42 Dose: 2.5 mg
== END 2019-10-23 17:10 | disposition home or self-care (01) | DRG 291 ==
LOC: VM.ED 19:24 → VM.MS 21:05
PROVIDERS: ADMIT Nurse Practitioner Family; ATTEND Family Medicine
DX: I11.0 Hypertensive heart disease with heart failure (principal); J10.00 Influenza due to other identified influenza virus with unspecified type of pneumonia; I48.20 Chronic atrial fibrillation, unspecified; I50.33 Acute on chronic diastolic (congestive) heart failure; I25.10 Atherosclerotic heart disease of native coronary artery without angina pectoris; G47.30 Sleep apnea, unspecified; G47.33 Obstructive sleep apnea (adult) (pediatric); E78.00 Pure hypercholesterolemia, unspecified; E66.01 Morbid (severe) obesity due to excess calories; F32.9 Major depressive disorder, single episode, unspecified; K21.9 Gastro-esophageal reflux disease without esophagitis; J30.9 Allergic rhinitis, unspecified; H11.159 Pinguecula, unspecified eye; H43.819 Vitreous degeneration, unspecified eye; Z79.51 Long term (current) use of inhaled steroids; H52.4 Presbyopia; H52.10 Myopia, unspecified eye; F10.21 Alcohol dependence, in remission; Z90.710 Acquired absence of both cervix and uterus; Z96.659 Presence of unspecified artificial knee joint; M19.90 Unspecified osteoarthritis, unspecified site; G89.4 Chronic pain syndrome; F41.9 Anxiety disorder, unspecified; G56.22 Lesion of ulnar nerve, left upper limb; E83.42 Hypomagnesemia; I34.0 Nonrheumatic mitral (valve) insufficiency; Z79.899 Other long term (current) drug therapy; Z79.82 Long term (current) use of aspirin; Z87.891 Personal history of nicotine dependence; Z99.81 Dependence on supplemental oxygen; Z98.890 Other specified postprocedural states; Z88.6 Allergy status to analgesic agent; Z88.8 Allergy status to other drugs, medicaments and biological substances; Z79.01 Long term (current) use of anticoagulants; Z98.49 Cataract extraction status, unspecified eye
CPT/HCPCS: 36415; 71045; 71046; 80048; 80053; 81001; 83605; 83735; 83880; 84484; 85025; 85610; 86140; 87040; 87804; 87804-59; 93010; 94760; 96374; 97161-GP; 97165-GO; 97530-GP; 99284-GF; 99285-25; A9270-GY; J0456; J0696; J2405; J3475; J7050

== ENCOUNTER 2021-04-17 14:37 | Inpatient (IN) | payer MEDICARE, OTHER ==
[2021-04-17] MEDS ORDERED: cefTRIAXone 1 GM Vial IVPUSH ONE (15:05)
[2021-04-17] MEDS ORDERED: methylPREDNISolone Sodium Succinate 125 MG/2 ML SDV IV ONE (15:09)
[2021-04-17] MEDS: Sodium Chloride 0.9% 10 ML Syringe FLUSH PRN (15:22)
[2021-04-17] MEDS ORDERED: methylPREDNISolone Sodium Succinate 125 MG/2 ML SDV ONE (15:25)
--- NOTE | 2021-04-17 15:38 | CR ---
[id number] RAD/RAD Chest PA or AP 1V EXAM: SINGLE VIEW CHEST. INDICATION: COUGH FEVER COMPARISON: CORRELATION IS MADE WITH OCTOBER 23, 2019 FINDINGS: The lungs are clear The apices are not entirely imaged The cardiac silhouette is stable The left shoulder prosthesis is seen IMPRESSION: NO PNEUMONIA Fab Leggett MD 04/17/21 [id number] Thank you for allowing us to participate in the care of your patient.
--- NOTE | 2021-04-17 15:41 | EDM.PDOC ---
ED HPI GENERAL MEDICAL PROBLEM - General Time Seen by Provider: 04/17/21 14:37 Source of Information: Reports: Patient History Limitations: Reports: No Limitations - History of Present Illness INITIAL COMMENTS - FREE TEXT/NARRATIVE: Pt. presents to ER with complaints of cough, wheezing and trouble breathing. Pt. has a history of COPD and is on O2 per NC at 2 L/min. She is on Symbicort 160mg- 4.5mg. She is also on duoneb QID. She has a history of intermittent a fib and is on Coumadin. She states that she started felling poorly on Tuesday and has progressively gotten worse. She states that she has been feeling chilled. She has had a cough productive of brownish sputum. Pt. denies any chest pain. No nausea, vomiting, or diarrhea. Denies any rashes. No ill contacts that she is aware of. Denies any lightheadedness or palpita tions. Pt. has had both covid 19 immunizations (Moderna, 10/21/20 and 11/17/20). Onset Date: 04/13/21 Location: Reports: Chest, Generalized Improves with: Reports: Rest Worsens with: Reports: Movement Bilateral Posterior Back Pain Score (Numeric/FACES): 8 - Related Data Allergies Allergy/AdvReac Type Severity Reaction Status Date / Time NSAIDS (Non-Steroidal AdvReac Hypertensio Verified 04/17/21 18:08 Anti-Inflamma n rosuvastatin calcium AdvReac Muscle Verified 04/17/21 18:08 [From Crestor] Aches Home Meds: Home Meds Budesonide/Formoterol [Symbicort 160-4.5 MCG] 2 puff INH BID 12/30/13 [History] Clobetasol [Temovate 0.05% Oint] 1 applic TOP BID PRN 12/30/13 [History] FLUoxetine [PROzac] 60 mg PO DAILY 12/30/13 [History] Fluticasone Propionate [Flonase] 1 spray NASBOTH BID 12/30/13 [History] Simvastatin [Zocor] 20 mg PO BEDTIME 12/30/13 [History] Warfarin [Coumadin] 2.5 mg PO DAILY 12/30/13 [History] traZODone 100 mg PO BEDTIME 12/30/13 [History] Aspirin [Halfprin] 81 mg PO BEDTIME 07/15/15 [History] Calcium Carbonate/Vitamin D3 [Calcium 600-Vit D3 800 Caplet] 1 tab PO DAILY 07/15/15 [History] Cholecalciferol (Vitamin D3) [Vitamin D3] 5,000 unit PO DAILY 07/15/15 [History] Omeprazole 40 mg PO ACBREAKFAST 07/15/15 [History] Triamcinolone Acetonide [Triamcinolone Acetonide 0.1% Oint] 1 applic TOP BID PRN 12/20/16 [History] Albuterol/Ipratropium [DuoNeb 3.0-0.5 MG/3 ML] 3 ml NEB QID PRN 10/19/19 [History] Grayson-3 Acid Ethyl Esters [Lovaza] 2 cap PO BIDMEALS 10/19/19 [History] Metoprolol Succinate [Toprol XL 100mg] 100 mg PO DAILY 10/22/19 [History] Furosemide [Lasix] 20 mg PO DAILY tablet 10/23/19 [Rx] Magnesium Oxide 400 mg PO DAILY tablet 10/23/19 [Rx] Past Medical History HEENT History: Reports: Allergic Rhinitis, Cataract Other HEENT History: pinguecula. posterior vitreous detachment. presbyopia. myopia Cardiovascular History: Reports: Arrhythmia, CAD, High Cholesterol, Hypertension Other Cardiovascular History: milde diastolic dysfunction. valvular heart disease. chronic anticoagulation. mild diastolic dysfunction. oxygen dependent. chronic atrial fibrillation Respiratory History: Reports: Sleep Apnea Other Respiratory History: dyspnea on exertion Gastrointestinal History: Reports: GERD Other Gastrointestinal History: family hx colon cancer Genitourinary History: Reports: None [employer]OR OF [employer] History: Reports: None Musculoskeletal History: Reports: Arthritis, Osteoarthritis Other Musculoskeletal History: low back pain. pain in joint, shoulder region Neurological History: Reports: None Other Neuro History: ulnar neuropathy, left. numbness of finger. chronic pain syndrome Psychiatric History: Reports: Anxiety, Depression Other Psychiatric History: hx of alcoholism. morbid obesity. insomnia Endocrine/Metabolic History: Reports: Obesity/BMI 30+ Other Endocrine/Metabolic History: impaired fasting glucose Hematologic History: Reports: None Immunologic History: Reports: None Oncologic (Cancer) History: Reports: None Dermatologic History: Reports: None - Infectious Disease History Infectious Disease History: Reports: Chicken Pox - Past Surgical History Head Surgeries/Procedures: Reports: None HEENT Surgical History: Reports: Cataract Surgery Cardiovascular Surgical History: Reports: None Respiratory Surgical History: Reports: None GI Surgical History: Reports: Colonoscopy Other GI Surgeries/Procedures: colon surgery. hemicolectomy (twisted bowel) Female Surgical History: Reports: Hysterectomy, Tubal Ligation Other Female Surgeries/Procedures: bladder repair (open) 1996 Endocrine Surgical History: Reports: None Neurological Surgical History: Reports: None Other Neurological Surgeries/Procedures: ulnar nerolysis Musculoskeletal Surgical History: Reports: Knee Replacement Other Musculoskeletal Surgeries/Procedures:: breast surgery Oncologic Surgical History: Reports: Biopsy of Breast Dermatological Surgical History: Reports: None Social & Family History - Family History Family Medical History: No Pertinent Family History - Caffeine Use Caffeine Use: Reports: Coffee, Soda ED ROS GENERAL - Review of Systems Review Of Systems: See Below Constitutional: Reports: Chills, Fatigue HEENT: Reports: No Symptoms Respiratory: Reports: Cough, Sputum Cardiovascular: Reports: No Symptoms Endocrine: Reports: No Symptoms GI/Abdominal: Reports: No Symptoms : Reports: No Symptoms Musculoskeletal: Reports: No Symptoms Skin: Reports: No Symptoms Neurological: Reports: Weakness. Denies: Confusion, Dizziness, Headache, Tremors, Trouble Speaking, Difficulty Walking, Change in Speech, Gait Disturban ce Psychiatric: Reports: No Symptoms Hematologic/Lymphatic: Reports: No Symptoms Immunologic: Reports: No Symptoms ED EXAM, GENERAL - Physical Exam Exam: See Below Exam Limited By: No Limitations General Appearance: Alert, WD/WN, No Apparent Distress Head: Atraumatic, Normocephalic Neck: Normal Inspection, Supple, Non-Tender, Full Range of Motion Respiratory/Chest: No Accessory Muscle Use, Decreased Breath Sounds, Crackles, Wheezing Cardiovascular: Normal Peripheral Pulses, Regular Rate, Rhythm, No Edema, No Gallop, No JVD, No Murmur GI/Abdominal: Soft, Non-Tender, No Distention, No Mass (Female) Exam: Deferred Rectal (Female) Exam: Deferred Back Exam: Normal Inspection, Full Range of Motion Extremities: Normal Inspection, Normal Range of Motion, Non-Tender, No Pedal Steven ma, Normal Capillary Refill Neurological: Alert, Oriented, CN II-XII Intact, Normal Cognition, No Motor/Sensory Deficits Psychiatric: Normal Affect, Normal Mood Skin Exam: Warm, Dry, Intact #1 Interpretation Rhythm: NSR [place]: Normal P-Wave: Present QRS: Normal ST-T: Normal QT: Normal Course - Vital Signs Last Recorded V/S: Last Vital Signs Temp 37.3 C 04/17/21 17:27 Pulse 82 04/17/21 17:27 Resp 19 04/17/21 17:27 BP 147/86 H 04/17/21 17:27 Pulse Ox 98 04/17/21 17:27 - Orders/Labs/Meds Orders: Active Orders 24 hr Category Date Time Status CULTURE BLOOD [BC] Stat Lab 04/17/21 15:15 Received CULTURE BLOOD [BC] Stat Lab 04/17/21 15:20 Received Sodium Chloride 0.9% [Saline Flush] Med 04/17/21 14:51 Active 10 ml FLUSH ASDIRECTED PRN Blood Culture x2 Reflex Set [OM.PC] Stat Oth 04/17/21 14:52 Ordered Peripheral IV Insertion Adult [OM.PC] Routine Oth 04/17/21 14:52 Ordered Medication Orders Albuterol/Ipratropium (Albuterol/Ipratropium 3.0-0.5 Mg/3 Ml Neb Soln) 3 ml NEB QID PRN PRN Reason: Shortness of Breath Ascorbic Acid (Ascorbic Acid 500 Mg Tab) 1,000 mg PO DAILY [facility] Last Admin: 04/17/21 18:03 Dose: 1,000 mg Documented by: ANGEL Aspirin (Aspirin 81 Mg Tab.Ec) 81 mg PO BEDTIME [facility] Cholecalciferol (Cholecalciferol (Vitamin D3) 25 Mcg Tab) 25 mcg PO DAILY [facility] Dexamethasone (Dexamethasone 4 Mg/Ml Sdv) 6 mg IVPUSH DAILY IRLANDA Last Admin: 04/17/21 18:01 Dose: 6 mg Documented by: ANGEL Dexamethasone 2 mg/ (Dexamethasone 4 mg) 6 mg PO DAILY IRLANDA Stop: 04/27/21 08:01 Enoxaparin Sodium (Enoxaparin 40 Mg/0.4 Ml Syringe) 40 mg SUBCUT Q12H [facility] Fluoxetine HCl (Fluoxetine 20 Mg Cap) 60 mg PO DAILY [facility] Furosemide (Furosemide 20 Mg Tab) 20 mg PO DAILY [facility] Remdesivir 100 mg/ Sodium (Chloride) 100 mls @ 100 mls/hr IV Q24H IRLANDA Stop: 04/21/21 17:59 Magnesium Oxide (Magnesium Oxide 400 Mg Tab) 400 mg PO DAILY [facility] Non-Formulary Medication (Budesonide/Formoterol) 2 puff INH BID IRLANDA Non-Formulary Medication (Calcium Carbonate/Vitamin D3 [Calcium 600-Vit D3 800 Caplet]) 1 tab PO DAILY IRLANDA Non-Formulary Medication (Cholecalciferol (Vitamin D3)) 5,000 unit PO DAILY IRLANDA Non-Formulary Medication (Clobetasol) 1 applic TOP BID PRN PRN Reason: sores Non-Formulary Medication (Fluticasone Propionate [Flonase]) 1 spray NASBOTH BID IRLANDA Non-Formulary Medication (Metoprolol Succinate [Toprol Xl 100mg]) 100 mg PO DAILY IRLANDA Non-Formulary Medication (Grayson-3 Acid Ethyl Esters [Lovaza]) 2 cap PO BIDMEALS IRLANDA Non-Formulary Medication (Omeprazole [Omeprazole]) 40 mg PO ACBREAKFAST IRLANDA Non-Formulary Medication (Trazodone) 100 mg PO BEDTIME IRLANDA Non-Formulary Medication (Triamcinolone Acetonide [Triamcinolone Acetonide 0.1% Oint]) 1 applic TOP BID PRN PRN Reason: Rash Simvastatin (Simvastatin 20 Mg Tab) 20 mg PO BEDTIME IRLANDA Sodium Chloride (Sodium Chloride 0.9% 10 Ml Syringe) 10 ml FLUSH ASDIRECTED PRN PRN Reason: Keep Vein Open Last Admin: 04/17/21 15:22 Dose: 10 ml Documented by: NANCY Warfarin Sodium (Warfarin 2.5 Mg Tab) 2.5 mg PO DAILY IRLANDA Zinc Sulfate (Zinc Sulfate 220 Mg Cap) 220 mg PO DAILY IRLANDA Last Admin: 04/17/21 18:03 Dose: 220 mg Documented by: ANGEL Labs: Laboratory Tests 04/17/21 04/17/21 04/17/21 Range/Units 15:15 15:15 15:15 WBC 6.7 (4.0-10.0) x10^3/uL RBC 4.38 (4.00-5.50) x10^6/uL Hgb 12.6 D (12.0-16.0) g/dL Hct 37.5 (33.0-47.0) % MCV 85.6 (78.0-93.0) fL MCH 28.8 (26.0-32.0) pg MCHC 33.6 (32.0-36.0) g/dL RDW Coeff of Samuel 14.2 (10.0-15.0) % Plt Count 157 (130-400) x10^3/uL Add Manual Diff Yes Neutrophils % (Manual) 68 (50-80) % Band Neutrophils % 1 (0-6) % Lymphocytes % (Manual) 19 L (25-50) % Monocytes % (Manual) 12 H (2-11) % Platelet Estimate Adequate PT 15.0 H (9.9-12.5) SEC INR 1.3 L (2.0-3.5) APTT (25.6-32.8) SEC D-Dimer, Quantitative (<=0.58) mg/LFEU Sodium 135 L (136-145) mmol/L Potassium 3.8 (3.5-5.1) mmol/L Chloride 98 (98-107) mmol/L Carbon Dioxide 27 (21-32) mmol/L Anion Gap 13.8 (5-15) mmol/L BUN 15 (7-18) mg/dL Creatinine 1.1 H (0.55-1.02) mg/dL Est Cr Clr Drug Dosing 32.26 mL/min Estimated GFR (MDRD) 48 Glucose 110 H (70-99) mg/dL Lactic Acid (0.4-2.0) mmol/L Calcium 8.2 L (8.5-10.1) mg/dL Corrected Calcium 9.2 (8.5-10.1) mg/dL Phosphorus 2.9 (2.6-4.7) mg/dL Magnesium 1.8 (1.8-2.4) mg/dL Total Bilirubin 0.3 (0.2-1.0) mg/dL Direct Bilirubin (0.00-0.20) mg/dL Indirect Bilirubin AST 22 (15-37) U/L ALT 31 (14-59) U/L Alkaline Phosphatase 80 (46-116) U/L Lactate Dehydrogenase (81-234) U/L Creatine Kinase (26-192) U/L Troponin I High Sens 9 (<=51) ng/L C-Reactive Protein 9.5 H (<=0.9) mg/dL NT-Pro-B Natriuret Pep 1415 H (<=450) pg/mL Total Protein 7.1 (6.4-8.2) g/dL Albumin 2.8 L (3.4-5.0) g/dL Globulin 4.3 Albumin/Globulin Ratio 0.65 Procalcitonin (0.1-0.50) ng/mL SARS CoV-2 RNA Rapid CHOLO (NEGATIVE) 04/17/21 04/17/21 04/17/21 Range/Units 15:15 15:15 15:15 WBC (4.0-10.0) x10^3/uL RBC (4.00-5.50) x10^6/uL Hgb (12.0-16.0) g/dL Hct (33.0-47.0) % MCV (78.0-93.0) fL MCH (26.0-32.0) pg MCHC (32.0-36.0) g/dL RDW Coeff of Samuel (10.0-15.0) % Plt Count (130-400) x10^3/uL Add Manual Diff Neutrophils % (Manual) (50-80) % Band Neutrophils % (0-6) % Lymphocytes % (Manual) (25-50) % Monocytes % (Manual) (2-11) % Platelet Estimate PT (9.9-12.5) SEC INR (2.0-3.5) APTT 29.6 (25.6-32.8) SEC D-Dimer, Quantitative (<=0.58) mg/LFEU Sodium (136-145) mmol/L Potassium (3.5-5.1) mmol/L Chloride (98-107) mmol/L Carbon Dioxide (21-32) mmol/L Anion Gap (5-15) mmol/L BUN (7-18) mg/dL Creatinine (0.55-1.02) mg/dL Est Cr Clr Drug Dosing mL/min Estimated GFR (MDRD) Glucose (70-99) mg/dL Lactic Acid 1.1 (0.4-2.0) mmol/L Calcium (8.5-10.1) mg/dL Corrected Calcium (8.5-10.1) mg/dL Phosphorus (2.6-4.7) mg/dL Magnesium (1.8-2.4) mg/dL Total Bilirubin (0.2-1.0) mg/dL Direct Bilirubin (0.00-0.20) mg/dL Indirect Bilirubin AST (15-37) U/L ALT (14-59) U/L Alkaline Phosphatase (46-116) U/L Lactate Dehydrogenase (81-234) U/L Creatine Kinase (26-192) U/L Troponin I High Sens (<=51) ng/L C-Reactive Protein (<=0.9) mg/dL NT-Pro-B Natriuret Pep (<=450) pg/mL Total Protein (6.4-8.2) g/dL Albumin (3.4-5.0) g/dL Globulin Albumin/Globulin Ratio Procalcitonin < 0.05 L (0.1-0.50) ng/mL SARS CoV-2 RNA Rapid CHOLO (NEGATIVE) 04/17/21 04/17/21 04/17/21 Range/Units 15:15 15:15 15:15 WBC (4.0-10.0) x10^3/uL RBC (4.00-5.50) x10^6/uL Hgb (12.0-16.0) g/dL Hct (33.0-47.0) % MCV (78.0-93.0) fL MCH (26.0-32.0) pg MCHC (32.0-36.0) g/dL RDW Coeff of Samuel (10.0-15.0) % Plt Count (130-400) x10^3/uL Add Manual Diff Neutrophils % (Manual) (50-80) % Band Neutrophils % (0-6) % Lymphocytes % (Manual) (25-50) % Monocytes % (Manual) (2-11) % Platelet Estimate PT (9.9-12.5) SEC INR (2.0-3.5) APTT (25.6-32.8) SEC D-Dimer, Quantitative 0.47 (<=0.58) mg/LFEU Sodium (136-145) mmol/L Potassium (3.5-5.1) mmol/L Chloride (98-107) mmol/L Carbon Dioxide (21-32) mmol/L Anion Gap (5-15) mmol/L BUN (7-18) mg/dL Creatinine (0.55-1.02) mg/dL Est Cr Clr Drug Dosing mL/min Estimated GFR (MDRD) Glucose (70-99) mg/dL Lactic Acid (0.4-2.0) mmol/L Calcium (8.5-10.1) mg/dL Corrected Calcium (8.5-10.1) mg/dL Phosphorus (2.6-4.7) mg/dL Magnesium (1.8-2.4) mg/dL Total Bilirubin 0.3 (0.2-1.0) mg/dL Direct Bilirubin 0.08 (0.00-0.20) mg/dL Indirect Bilirubin 0.22 AST 22 (15-37) U/L ALT 33 (14-59) U/L Alkaline Phosphatase 81 (46-116) U/L Lactate Dehydrogenase 222 (81-234) U/L Creatine Kinase 137 (26-192) U/L Troponin I High Sens (<=51) ng/L C-Reactive Protein (<=0.9) mg/dL NT-Pro-B Natriuret Pep (<=450) pg/mL Total Protein 7.1 (6.4-8.2) g/dL Albumin 2.8 L (3.4-5.0) g/dL Globulin 4.3 Albumin/Globulin Ratio 0.65 Procalcitonin (0.1-0.50) ng/mL SARS CoV-2 RNA Rapid CHOLO (NEGATIVE) 04/17/21 Range/Units 15:54 WBC (4.0-10.0) x10^3/uL RBC (4.00-5.50) x10^6/uL Hgb (12.0-16.0) g/dL Hct (33.0-47.0) % MCV (78.0-93.0) fL MCH (26.0-32.0) pg MCHC (32.0-36.0) g/dL RDW Coeff of Samuel (10.0-15.0) % Plt Count (130-400) x10^3/uL Add Manual Diff Neutrophils % (Manual) (50-80) % Band Neutrophils % (0-6) % Lymphocytes % (Manual) (25-50) % Monocytes % (Manual) (2-11) % Platelet Estimate PT (9.9-12.5) SEC INR (2.0-3.5) APTT (25.6-32.8) SEC D-Dimer, Quantitative (<=0.58) mg/LFEU Sodium (136-145) mmol/L Potassium (3.5-5.1) mmol/L Chloride (98-107) mmol/L Carbon Dioxide (21-32) mmol/L Anion Gap (5-15) mmol/L BUN (7-18) mg/dL Creatinine (0.55-1.02) mg/dL Est Cr Clr Drug Dosing mL/min Estimated GFR (MDRD) Glucose (70-99) mg/dL Lactic Acid (0.4-2.0) mmol/L Calcium (8.5-10.1) mg/dL Corrected Calcium (8.5-10.1) mg/dL Phosphorus (2.6-4.7) mg/dL Magnesium (1.8-2.4) mg/dL Total Bilirubin (0.2-1.0) mg/dL Direct Bilirubin (0.00-0.20) mg/dL Indirect Bilirubin AST (15-37) U/L ALT (14-59) U/L Alkaline Phosphatase (46-116) U/L Lactate Dehydrogenase (81-234) U/L Creatine Kinase (26-192) U/L Troponin I High Sens (<=51) ng/L C-Reactive Protein (<=0.9) mg/dL NT-Pro-B Natriuret Pep (<=450) pg/mL Total Protein (6.4-8.2) g/dL Albumin (3.4-5.0) g/dL Globulin Albumin/Globulin Ratio Procalcitonin (0.1-0.50) ng/mL SARS CoV-2 RNA Rapid CHOLO Positive H (NEGATIVE) Meds: Medications Generic Name Dose Route Start Last Admin Trade Name Freq PRN Reason Stop Dose Admin Albuterol/Ipratropium 3 ml 04/17/21 18:05 Albuterol/Ipratropium 3.0-0.5 Mg/3 Ml Neb Soln NEB QID PRN Shortness of Breath Ascorbic Acid 1,000 mg 04/17/21 17:15 04/17/21 18:03 Ascorbic Acid 500 Mg Tab PO 1,000 mg DAILY IRLANDA Administration Aspirin 81 mg 04/17/21 20:00 Aspirin 81 Mg Tab.Ec PO BEDTIME IRLANDA Cholecalciferol 25 mcg 04/17/21 17:45 Cholecalciferol (Vitamin D3) 25 Mcg Tab PO DAILY IRLANDA Dexamethasone 6 mg 04/17/21 17:00 04/17/21 18:01 Dexamethasone 4 Mg/Ml Sdv IVPUSH 6 mg DAILY IRLANDA Administration Dexamethasone 2 mg/ 6 mg 04/18/21 08:00 Dexamethasone 4 mg PO 04/27/21 08:01 DAILY IRLANDA Enoxaparin Sodium 40 mg 04/17/21 21:00 Enoxaparin 40 Mg/0.4 Ml Syringe SUBCUT Q12H IRLANDA Fluoxetine HCl 60 mg 04/18/21 08:00 Fluoxetine 20 Mg Cap PO DAILY IRLANDA Furosemide 20 mg 04/18/21 08:00 Furosemide 20 Mg Tab PO DAILY [facility] Remdesivir 100 mg/ Sodium 100 mls @ 100 mls/hr 04/18/21 17:00 Chloride IV 04/21/21 17:59 Q24H IRLANDA Magnesium Oxide 400 mg 04/18/21 08:00 Magnesium Oxide 400 Mg Tab PO DAILY IRLANDA Non-Formulary Medication 2 puff 04/17/21 20:00 Budesonide/Formoterol INH BID IRLANDA Non-Formulary Medication 1 tab 04/18/21 08:00 Calcium Carbonate/Vitamin D3 [Calcium 600-Vit D3 800 Caplet] PO DAILY IRLANDA Non-Formulary Medication 5,000 unit 04/18/21 08:00 Cholecalciferol (Vitamin D3) PO DAILY IRLANDA Non-Formulary Medication 1 applic 04/17/21 18:05 Clobetasol TOP BID PRN sores Non-Formulary Medication 1 spray 04/17/21 20:00 Fluticasone Propionate [Flonase] NASBOTH BID [facility] Non-Formulary Medication 100 mg 04/18/21 08:00 Metoprolol Succinate [Toprol Xl 100mg] PO DAILY [facility] Non-Formulary Medication 2 cap 04/18/21 08:00 Grayson-3 Acid Ethyl Esters [Lovaza] PO BIDMEALS IRLANDA Non-Formulary Medication 40 mg 04/18/21 07:00 Omeprazole [Omeprazole] PO ACBREAKFAST IRLANDA Non-Formulary Medication 100 mg 04/17/21 20:00 Trazodone PO BEDTIME IRLANDA Non-Formulary Medication 1 applic 04/17/21 18:05 Triamcinolone Acetonide [Triamcinolone Acetonide 0.1% Oint] TOP BID PRN Rash Simvastatin 20 mg 04/17/21 20:00 Simvastatin 20 Mg Tab PO BEDTIME IRLANDA Sodium Chloride 10 ml 04/17/21 14:51 04/17/21 15:22 Sodium Chloride 0.9% 10 Ml Syringe FLUSH 10 ml ASDIRECTED PRN Administration Keep Vein Open Warfarin Sodium 2.5 mg 04/18/21 08:00 Warfarin 2.5 Mg Tab PO DAILY IRLANDA Zinc Sulfate 220 mg 04/17/21 17:00 04/17/21 18:03 Zinc Sulfate 220 Mg Cap PO 220 mg DAILY IRLANDA Administration Discontinued Medications Generic Name Dose Route Start Last Admin Trade Name Adánq PRN Reason Stop Dose Admin Ceftriaxone Sodium 1 gm 04/17/21 15:05 04/17/21 15:22 Ceftriaxone 1 Gm Vial IVPUSH 04/17/21 15:06 1 gm STAT ONE Administration Cholecalciferol 1,000 unit 04/17/21 17:15 Cholecalciferol (Vitamin D3) 5,000 Unit Tab PO DAILY IRLANDA Remdesivir 200 mg/ Sodium 250 mls @ 250 mls/hr 04/17/21 16:55 04/17/21 18:04 Chloride IV 04/17/21 17:54 250 mls/hr ONETIME ONE Administration Methylprednisolone Sodium Succinate 125 mg 04/17/21 15:09 04/17/21 15:18 Methylprednisolone Sodium Succinate 125 Mg/2 Ml Sdv IV 04/17/21 15:10 125 mg ONETIME ONE Administration Methylprednisolone Sodium Succinate Confirm 04/17/21 15:25 04/17/21 15:22 Methylprednisolone Sodium Succinate 125 Mg/2 Ml Sdv Administered 04/17/21 15:26 Not Given Dose 125 mg .ROUTE .STK-MED ONE - Radiology Interpretation Free Text/Narrative:: No obvious acute infiltrate - Re-Assessments/Exams Free Text/Narrative Re-Assessment/Exam: 04/17/21 15:47 No obvious infiltrate noted on chest x-ray. Pt. was given rocephin 1 gm IV. She was given solu medrol 125mg IV. Pt. maintaining Departure - Departure Time of Disposition: 16:52 Disposition: DC/Tfer to Acute Hospital 02 Clinical Impression: COVID-19, COPD (chronic obstructive pulmonary disease) - Discharge Information Sepsis Event Note (ED) - Focused Exam Vital Signs: Vital Signs Temp Pulse Resp BP Pulse Ox 04/17/21 15:58 61 12 110/47 L 96 04/17/21 14:50 36.9 C 81 18 147/76 H 97 - Problem List Review Problem List Initiated/Reviewed/Updated: Yes - My Orders Last 24 Hours: My Active Orders 04/17/21 14:51 Sodium Chloride 0.9% [Saline Flush] 10 ml FLUSH ASDIRECTED PRN 04/17/21 14:52 Blood Culture x2 Reflex Set [OM.PC] Stat Peripheral IV Insertion Adult [OM.PC] Routine 04/17/21 15:15 CULTURE BLOOD [BC] Stat 04/17/21 15:20 CULTURE BLOOD [BC] Stat - Assessment/Plan Admission H&P: Please use this note as an admission H&P Last 24 Hours: My Active Orders 04/17/21 14:51 Sodium Chloride 0.9% [Saline Flush] 10 ml FLUSH ASDIRECTED PRN 04/17/21 14:52 Blood Culture x2 Reflex Set [OM.PC] Stat Peripheral IV Insertion Adult [OM.PC] Routine 04/17/21 15:15 CULTURE BLOOD [BC] Stat 04/17/21 15:20 CULTURE BLOOD [BC] Stat Plan: Pt. will be admitted acutely. Dr. Márquez will be admitting for Dr. Hinds. She indicates that she wants to be intubated/receive CPR. She will be made a full code. Pt. Yulisa will be admitting for Dr. Hinds. Pt. will be started on Remdesivir 200mg this afternoon and will be given her first dose of dexamethasone 6mg IV today as well. She will be started on Zinc 220mg PO, vit C 1000mg PO, and Vit D 1000mg orally daily. Discussed findings with patient and family. They are quite upset, questioning the accuracy or testing and plan of care. They agree to admission at this time. Pt. will be placed in negative pressure room. Staff to assume covid 19 PPE protocol. Pt. INR was subtheraputic. She will be bridged with lovenox.
[2021-04-17 16:06] LABS: ANION GAP 13.8 mmol/L (5-15)
[2021-04-17] MEDS ORDERED: REMDESIVIR 200 MG in Sodium Chloride 0.9% 250 ML IV ONE (16:55)
[2021-04-17] MEDS ORDERED: Cholecalciferol (Vitamin D3) 5,000 UNIT Tab PO SCH (17:15)
[2021-04-17] MEDS ORDERED: Cholecalciferol (Vitamin D3) 25 MCG Tab PO SCH (17:45)
--- NOTE | 2021-04-17 18:00 | PCM.SN.2 ---
- Free Text/Narrative Note: Pt seen by Nick CHATMAN in Er with positive covid and SOB with COPD exacerbation. She has received both Moderna vaccinations on Oct and November 17, 2020, Please refer to ER note for rest of H and P. I have reviewed his note and agree with it.If h Labs were reviewed with abnormal noted of BNP and CRP,elevated, Her INR was low. She will be given Remdesivir daily for 5 day, Decadron daily for 5-10 days, depending on response. She will be bridged with lovenox until her INR is back to being therapeutic. She will have blood and sputum cultures done. She did receive Solumedrol and Rocephin in ER prior to knowing covid result. She will have daily monitoring of blood for PT/INR, CBCw diff, CRP, CMP, LDH, and Mag. She is already on chronic home oxygen. I did not see pt physically today to reduce my exposure to COVID, since I am high risk, but will see pt tomorrow. She is full code.If her status would worsen she would need transfer to [facility] however bed status is becoming limited there.
[2021-04-17] MEDS: Dexamethasone 4 MG/ML SDV IVPUSH SCH (18:01)
[2021-04-17] MEDS: Zinc Sulfate 220 MG Cap PO SCH (18:03)
[2021-04-17] MEDS: Ascorbic Acid 500 MG Tab PO SCH (18:03)
[2021-04-17] MEDS ORDERED: Albuterol/Ipratropium 3.0-0.5 MG/3 ML Neb Soln NEB PRN (18:05)
[2021-04-17] MEDS ORDERED: Clobetasol 0.05% Crm 30 GM Tube TOP PRN (18:05)
[2021-04-17] MEDS ORDERED: Triamcinolone Acetonide 0.1% Crm 15 GM Tube TOP PRN (18:05)
[2021-04-17] MEDS ORDERED: Enoxaparin 40 MG/0.4 ML Syringe SUBCUT SCH ×2 (18:30→21:00)
[2021-04-17] MEDS: Aspirin 81 MG Tab.EC PO SCH (19:37)
[2021-04-17] MEDS: Simvastatin 20 MG Tab PO SCH (19:38)
[2021-04-17] MEDS: Enoxaparin 40 MG/0.4 ML Syringe SUBCUT SCH (19:39)
[2021-04-17] MEDS ORDERED: Albuterol HFA 18 Gm Inhaler INH PRN (19:46)
[2021-04-17] MEDS: Formoterol/Mometasone 200-5 MCG 8.8 GM Inhaler IH SCH (21:00)
[2021-04-17] MEDS: traZODone 50 MG Tab PO SCH (21:00)
[2021-04-17] MEDS: Fluticasone Propionate Nasal Spray 9.9 ML BOTTLE NASBOTH SCH (21:00)
[2021-04-18] MEDS: FLUoxetine 20 MG Cap PO SCH (07:38)
[2021-04-18] MEDS: Fish Oil/Omega-3 Fatty Acids 1 Gm Cap PO SCH ×2 (07:38→19:38)
[2021-04-18] MEDS: Zinc Sulfate 220 MG Cap PO SCH (07:38)
[2021-04-18] MEDS: dexAMETHasone 2 MG, dexAMETHasone 4 MG PO SCH ×2 (07:38)
[2021-04-18] MEDS: Furosemide 20 MG Tab PO SCH (07:38)
[2021-04-18] MEDS: Enoxaparin 40 MG/0.4 ML Syringe SUBCUT SCH ×2 (07:38→19:37)
[2021-04-18] MEDS: Ascorbic Acid 500 MG Tab PO SCH (07:39)
[2021-04-18] MEDS: Calcium Carbonate/Vitamin D3 1250 MG-5 MCG Tab PO SCH (07:39)
[2021-04-18] MEDS: Cholecalciferol (Vitamin D3) 5,000 UNIT Tab PO SCH (07:39)
[2021-04-18] MEDS: Metoprolol Succinate 50 MG Tab.ER PO SCH (07:39)
[2021-04-18] MEDS: Magnesium Oxide 400 MG Tab PO SCH (07:39)
[2021-04-18] MEDS: Omeprazole 20 MG Cap.CR PO SCH (07:39)
[2021-04-18] MEDS: Warfarin 2.5 MG Tab PO SCH (07:39)
[2021-04-18] MEDS: Dexamethasone 4 MG/ML SDV IVPUSH SCH (07:40)
[2021-04-18] MEDS: Formoterol/Mometasone 200-5 MCG 8.8 GM Inhaler IH SCH ×2 (08:14→19:38)
[2021-04-18] MEDS: Fluticasone Propionate Nasal Spray 9.9 ML BOTTLE NASBOTH SCH ×2 (08:14→20:02)
[2021-04-18 08:37] LABS: PTT,PARTIAL THROMBOPLSTIN TIME 28.8 SEC (25.6-32.8)
[2021-04-18 09:03] LABS: ANION GAP 13.3 mmol/L (5-15)
--- NOTE | 2021-04-18 09:14 | PN ---
Progress Note for MEME SHEPPARD Date: 04/18/2021 Room #: VM.209 SUBJECTIVE: The patient was admitted yesterday with positive COVID test with exacerbation of COPD. The patient had become ill actually 2 days prior to presentation with having a productive brownish cough. She had received both Moderna vaccines on 10/21/2020 as well as 11/17/2020. The patient had been playing [employer] 3 days prior to admission after having had a trip to [place]. She comments she had not been wearing masks. Otherwise today, she had a funny dream last night which was odd for her to have such dreams, but now this morning she is feeling better, feels almost back to her baseline. OBJECTIVE: Vital Signs: Her temperature is 36.2, pulse is 74, blood pressure is 141/84, saturations are 97 on 2 L, respiratory rate 16. Heart: Regular rate and rhythm. Lungs: Have diminished breath sounds on bases. No crackles or wheezes. Abdomen: Soft, nontender. Extremities: Lower extremities, no edema. LABORATORY DATA: Labs from admission; her sputum culture did show some white blood cells, few gram-positive cocci. Strep pneumonia test is pending. This morning, her INR is lower 1.2. Pro-time is 28.8. Her D-dimer was normal yesterday on admission at 0.47. Her proBNP had been elevated on admission at 14.5. CRP was 9.5. Troponin was normal at 9. Procalcitonin was normal, less than 0.05. Urinalysis came back normal. Remaining lab today is still pending for her electrolytes as well as inflammatory markers. IMPRESSION: 1. COVID. Viral pneumonia. 2. Exacerbation of chronic obstructive pulmonary disease. 3. Chronic obstructive pulmonary disease. 4. Chronic atrial fibrillation. 5. Hypocoagulable. 6. Hypercholesterolemia. 7. Hypertension. 8. Insomnia. PLAN: We will continue standard course for COVID treatment right now. We will need to watch her sputum. If it would worsen, may need to consider adding back an antibiotic for her. GM04/18/2021 08:52:02 MODL: 04/18/2021 09:07:06 /[id number] MTDYousuf
[2021-04-18] MEDS: Aspirin 81 MG Tab.EC PO SCH (19:37)
[2021-04-18] MEDS: Simvastatin 20 MG Tab PO SCH (19:37)
[2021-04-18] MEDS: REMDESIVIR 100 MG in Sodium Chloride 0.9% 100 ML IV SCH (19:37)
[2021-04-18] MEDS: traZODone 50 MG Tab PO SCH (22:16)
[2021-04-19] MEDS: FLUoxetine 20 MG Cap PO SCH (08:05)
[2021-04-19] MEDS: Enoxaparin 40 MG/0.4 ML Syringe SUBCUT SCH ×2 (08:05→19:44)
[2021-04-19] MEDS: Zinc Sulfate 220 MG Cap PO SCH (08:06)
[2021-04-19] MEDS: Cholecalciferol (Vitamin D3) 5,000 UNIT Tab PO SCH (08:06)
[2021-04-19] MEDS: Magnesium Oxide 400 MG Tab PO SCH (08:06)
[2021-04-19] MEDS: Fish Oil/Omega-3 Fatty Acids 1 Gm Cap PO SCH ×2 (08:06→19:45)
[2021-04-19] MEDS: Omeprazole 20 MG Cap.CR PO SCH (08:06)
[2021-04-19] MEDS: Warfarin 2.5 MG Tab PO SCH (08:06)
[2021-04-19] MEDS: Metoprolol Succinate 50 MG Tab.ER PO SCH (08:06)
[2021-04-19] MEDS: dexAMETHasone 2 MG, dexAMETHasone 4 MG PO SCH ×2 (08:07)
[2021-04-19] MEDS: Ascorbic Acid 500 MG Tab PO SCH (08:07)
[2021-04-19] MEDS: Dexamethasone 4 MG/ML SDV IVPUSH SCH (08:07)
[2021-04-19] MEDS: Calcium Carbonate/Vitamin D3 1250 MG-5 MCG Tab PO SCH (08:07)
[2021-04-19] MEDS: Furosemide 20 MG Tab PO SCH (08:07)
[2021-04-19] MEDS: Formoterol/Mometasone 200-5 MCG 8.8 GM Inhaler IH SCH ×2 (08:08→19:45)
[2021-04-19] MEDS: Fluticasone Propionate Nasal Spray 9.9 ML BOTTLE NASBOTH SCH ×2 (08:08→19:46)
[2021-04-19 08:35] LABS: ANION GAP 11.8 mmol/L (5-15)
--- NOTE | 2021-04-19 11:41 | PN ---
Progress Note for MEME SHEPPARD Date: 04/19/2021 Room #: VM.209 SUBJECTIVE: This is the patient's third hospital day of being admitted with coronavirus disease pneumonia. She is feeling better today. She is not having a productive cough. She slept better last night and offers no other concerns. OBJECTIVE: Vital Signs: Her temperature is 35.5, pulse 57, blood pressure 116/42, saturations are 93% on room air during the day, respiratory rate 16. Heart: Regular rate and rhythm. Lungs: Have diminished breath sounds on bases. No crackles or wheezes. Abdomen: Soft. Extremities: Lower extremities, no edema. LABORATORY DATA: Lab work is pending today. Yesterday, her sputum culture showed normal tricia. IMPRESSION: 1. Coronavirus disease pneumonia. 2. Exacerbation of chronic obstructive pulmonary disease. 3. Hypocoagulable. 4. Chronic atrial fibrillation. 5. Obesity. 6. Hypertension. PLAN: We will have tele pharmacy adjust her Coumadin. We will continue her on the Remdesivir as well as Decadron. We will repeat a chest x-ray tomorrow. Depending on her lab work today, we would determine if we would need to consider adding an antibiotic on board, but I do not think so since she is afebrile. GM04/19/2021 08:01:56 MODL: 04/19/2021 08:10:09 /[id number]
[2021-04-19] MEDS: REMDESIVIR 100 MG in Sodium Chloride 0.9% 100 ML IV SCH (19:44)
[2021-04-19] MEDS: Aspirin 81 MG Tab.EC PO SCH (19:45)
[2021-04-19] MEDS: Simvastatin 20 MG Tab PO SCH (19:45)
[2021-04-19] MEDS: traZODone 50 MG Tab PO SCH (22:26)
[2021-04-20 07:09] LABS: ANION GAP 12.9 mmol/L (5-15)
--- NOTE | 2021-04-20 08:42 | PN ---
Progress Note for MEME SHEPPARD Date: 04/20/2021 Room #: VM.209 SUBJECTIVE: The patient is feeling much better. She is not coughing as much as she had. She slept well. Offers no other complaints. OBJECTIVE: Vital Signs: Her temperature is 37.2, pulse 53, blood pressure is 157/57, saturations are 93% on 2 L, and as she is sleeping, respiratory rate is 20. General: She is alert, pleasant to visit with. Heart: Regular rate and rhythm. Lungs: Clear to auscultation. Extremities: She has a bruise on the posterior aspect of her right arm. Lower extremities, no edema. LABORATORY DATA: White blood cell count is improved to 10.1 and hemoglobin 12.0. INR is slowly improving at 1.5. Sodium is 140, potassium 3.9, and creatinine 1.0. GFR 53, glucose 114, and magnesium 1.8. LFTs normal. LDH normal at 201. CRP is improving to 3.7. Total protein 6.1. IMPRESSION: 1. COVID pneumonia. 2. Exacerbation of chronic obstructive pulmonary disease. 3. Chronic atrial fibrillation. 4. Obesity. PLAN: We will await chest x-ray this morning. She will complete her course of remdesivir by tomorrow. Her INR is slightly subtherapeutic, so I feel that she is benefitting by another day of Lovenox shots and her INR is being managed by the tele pharmacy and do anticipate most likely the patient will be able to be discharged home tomorrow. We will switch her from telemetry for cardiac monitoring to just continuous oxygen monitoring. GM04/20/2021 08:19:36 MODL: 04/20/2021 08:33:32 /[id number]
--- NOTE | 2021-04-20 08:57 | CR ---
[id number] RAD/RAD Chest PA or AP 1V EXAM: SINGLE VIEW CHEST. 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
[2021-04-20] MEDS: FLUoxetine 20 MG Cap PO SCH (09:30)
[2021-04-20] MEDS: dexAMETHasone 2 MG, dexAMETHasone 4 MG PO SCH ×2 (09:30)
[2021-04-20] MEDS: Ascorbic Acid 500 MG Tab PO SCH (09:30)
[2021-04-20] MEDS: Calcium Carbonate/Vitamin D3 1250 MG-5 MCG Tab PO SCH (09:31)
[2021-04-20] MEDS: Omeprazole 20 MG Cap.CR PO SCH (09:31)
[2021-04-20] MEDS: Furosemide 20 MG Tab PO SCH (09:31)
[2021-04-20] MEDS: Zinc Sulfate 220 MG Cap PO SCH (09:31)
[2021-04-20] MEDS: Metoprolol Succinate 50 MG Tab.ER PO SCH (09:31)
[2021-04-20] MEDS: Fish Oil/Omega-3 Fatty Acids 1 Gm Cap PO SCH ×2 (09:32→20:47)
[2021-04-20] MEDS: Cholecalciferol (Vitamin D3) 5,000 UNIT Tab PO SCH (09:33)
[2021-04-20] MEDS: Warfarin 2.5 MG Tab PO SCH (09:33)
[2021-04-20] MEDS: Formoterol/Mometasone 200-5 MCG 8.8 GM Inhaler IH SCH ×2 (09:34→20:48)
[2021-04-20] MEDS: Magnesium Oxide 400 MG Tab PO SCH (09:35)
[2021-04-20] MEDS: Fluticasone Propionate Nasal Spray 9.9 ML BOTTLE NASBOTH SCH ×2 (09:35→20:48)
[2021-04-20] MEDS: Enoxaparin 40 MG/0.4 ML Syringe SUBCUT SCH ×2 (10:40→20:47)
[2021-04-20] MEDS ORDERED: [UNRECOGNIZED DRUG - REMARK] SCH (10:45)
[2021-04-20] MEDS ORDERED: Warfarin 2.5 MG Tab PO ONE (12:00)
[2021-04-20] MEDS: Dexamethasone 4 MG/ML SDV IVPUSH SCH (12:19)
[2021-04-20] MEDS ORDERED: REMDESIVIR 100 MG ONE (19:15)
[2021-04-20] MEDS: Simvastatin 20 MG Tab PO SCH (20:47)
[2021-04-20] MEDS: Aspirin 81 MG Tab.EC PO SCH (20:47)
[2021-04-20] MEDS: traZODone 50 MG Tab PO SCH (20:47)
[2021-04-20] MEDS: REMDESIVIR 100 MG in Sodium Chloride 0.9% 100 ML IV SCH (20:47)
[2021-04-20] MEDS: Sodium Chloride 0.9% 10 ML Syringe FLUSH PRN (20:48)
[2021-04-21 07:06] LABS: ANION GAP 9.1 mmol/L (5-15)
--- NOTE | 2021-04-21 08:38 | PN ---
Progress Note for MEME SHEPPARD Date: 04/21/2021 Room #: [id number] SUBJECTIVE: The patient is feeling much better. She is resting well. No concerns have been noted overnight. She uses her CPAP during the night when she sleeps. OBJECTIVE: Vital Signs: Her temperature is 36.2, pulse 60, blood pressure is 139/47, saturations are 92 on 2 L. Heart: Regular rate and rhythm. Lungs: Clear to auscultation. Abdomen: Soft. Extremities: Lower extremities, no edema. LABORATORY DATA: Show her white blood cell count 9.2, hemoglobin 12.5. INR is up to 1.8. Sodium is 141, potassium 4.1, creatinine 1.1. GFR is 48. Glucose 102. LFTs are normal. LDH is the same at 221. CRP is improved to 2.5. Her Streptococcus pneumoniae antibody came back negative. IMPRESSION: 1. COVID pneumonia. 2. Exacerbation of chronic obstructive pulmonary disease. 3. Chronic atrial fibrillation. PLAN: The patient will be able to go home today. We will have her follow up with Dr. Hinds in a week to two weeks' time. GM04/21/2021 08:20:18 MODL: 04/21/2021 08:34:35 /[id number]
[2021-04-21] MEDS ORDERED: REMDESIVIR 100 MG in Sodium Chloride 0.9% 100 ML IV SCH ×2 (09:00→10:45)
[2021-04-21] MEDS: Omeprazole 20 MG Cap.CR PO SCH (10:53)
[2021-04-21] MEDS: Enoxaparin 40 MG/0.4 ML Syringe SUBCUT SCH (10:53)
[2021-04-21] MEDS: FLUoxetine 20 MG Cap PO SCH (10:54)
[2021-04-21] MEDS: Calcium Carbonate/Vitamin D3 1250 MG-5 MCG Tab PO SCH (10:54)
[2021-04-21] MEDS: Fish Oil/Omega-3 Fatty Acids 1 Gm Cap PO SCH (10:54)
[2021-04-21] MEDS: Ascorbic Acid 500 MG Tab PO SCH (10:54)
[2021-04-21] MEDS: dexAMETHasone 2 MG, dexAMETHasone 4 MG PO SCH ×2 (10:55)
[2021-04-21] MEDS: Cholecalciferol (Vitamin D3) 5,000 UNIT Tab PO SCH (10:55)
[2021-04-21] MEDS: Zinc Sulfate 220 MG Cap PO SCH (10:55)
[2021-04-21] MEDS: Metoprolol Succinate 50 MG Tab.ER PO SCH (10:55)
[2021-04-21] MEDS: Furosemide 20 MG Tab PO SCH (10:56)
[2021-04-21] MEDS: Magnesium Oxide 400 MG Tab PO SCH (10:56)
[2021-04-21] MEDS: Warfarin 2.5 MG Tab PO SCH (10:56)
--- NOTE | 2021-04-21 10:59 | DISCH ---
PRIMARY DIAGNOSES: 1. Pneumonia.COVID. 2. Exacerbation of chronic obstructive pulmonary disease. 3. Chronic atrial fibrillation. 4. Hypocoagulable. 5. PENNIE on CPAP. 6. Obesity. 7. Chronic obstructive pulmonary disease. 8. Hypercholesterolemia. 9. Hypertension. The patient presented to emergency room on 04/17/2021 and discharged on 04/21/21. She was having a productive cough, feeling short of breath. The patient had had previous COVID vaccines on 10/21/2020 and 11/17/2020 with Moderna. She was seen by the PA in the emergency room and found to have increased work of breathing. She was given a DuoNeb which helped considerably. The patient's temperature 37.5, respiratory rate was 19, pulse was 82. She is on home CPAP due to PENNIE> The patient's lab on presentation to the emergency room showed a white blood cell count 6.7, hemoglobin 12.6, platelets are 157 with segs 68, 1 band, 19 lymphocytes. INR was 1.3. Sodium was 135, potassium 3.8, creatinine 1.1. Magnesium 1.8. AST 22, ALT 31, alkaline phosphatase 80. Troponin 9. CRP 9.5. ProBNP 1415. Lactic acid 1.1. Procalcitonin less than 0.05. D-dimer was 0.47, which was normal. CK 137. SUMMARY OF HOSPITAL COURSE: Because the patient lives alone and is dependent on oxygen and it is 80, it was felt best that she be placed in the hospital. She was given 1 shot of Rocephin 1 g in the emergency room as well as Solu-Medrol before COVID test came back positive. The patient was placed on remdesivir 200 mg 1st day and then 100 mg days 2 through 5. She was placed on dexamethasone 6 mg IV and then oral. She was placed on zinc 220 mg and vitamin C 100 mg daily and vitamin D 1000 mg daily. Her cultures for sputum and blood were negative. Urine for strepto pneumonia came back negative. Her lab work improved and that her CRP trended down, had gone up to 13.0, then was down to 2.4 on day of discharge. Her LFTs stayed all within normal range. LDH stayed about the same range, it was 228 next day after admission, it was 221 on day of discharge. Her ferritin level had been 200 on day of admission. Her magnesium stayed normal. Her sodium was 141 on the day of discharge, as well as potassium 4.1. Creatinine was 1.1 on day of discharge. GFR was 48. Glucose had gone up to 161 because of the steroids, but was down to 102 by day of discharge. Her INR was monitored and was noted to be slightly subtherapeutic, so she had been started on Lovenox right away while she was hospitalized. She was up to 1.8 by 04/21. Chest x-ray was repeated after admission. Chest x-ray both were negative for infiltrates. The patient was felt stable to be discharged home. MEDICATIONS: Her medications at the time of discharge will be trazodone 100 mg 1 pill at bedtime, clobetasol 1 applicator twice a day as needed, Flonase 1 spray both nostrils b.i.d., Prozac 60 mg daily, Symbicort 160 2 puffs b.i.d., Coumadin 2.5 mg daily, Zocor 20 mg 1 pill at bedtime, omeprazole 40 mg 1 pill at breakfast, aspirin 81 mg 1 pill daily, calcium with vitamin D 1 pill daily, triamcinolone 0.1% ointment twice a day as needed, DuoNebs q.i.d. p.r.n., Lovaza 2 capsules b.i.d., metoprolol-XL 100 mg 1 pill daily, furosemide 20 mg 1 pill daily, magnesium 400 mg 1 pill daily, albuterol HFA 2 puffs q.4 hours p.r.n., vitamin C 1000 mg daily, vitamin D 5000 units daily, zinc 220 mg daily. The patient will follow up with Dr. Hinds in 2 weeks' time. We will have her get a INR test done in a week's time because at that time she should be not infectious as the patient would be considered day of admit as her infectious date, it should be 04/17/2021. The patient's code level 1 at the time of discharge. GM04/21/2021 08:31:02 MODL: 04/21/2021 10:51:03 /[id number] MTDYousuf
[2021-04-21] MEDS: Fluticasone Propionate Nasal Spray 9.9 ML BOTTLE NASBOTH SCH (11:03)
[2021-04-21] MEDS: Formoterol/Mometasone 200-5 MCG 8.8 GM Inhaler IH SCH (11:04)
[2021-04-21 15:43] VITALS: BP 140/70; PULSE 62
== END 2021-04-21 16:35 | disposition home or self-care (01) | DRG 177 ==
LOC: VM.ED 14:37 → VM.MS 16:41
PROVIDERS: ADMIT Family Medicine; ATTEND Family Medicine
PROC: 8E0ZXY6 Isolation (ICD-10-PCS; principal; 2021-04-17)
PROC: XW033E5 Introduction of Remdesivir Anti-infective into Peripheral Vein, Percutaneous Approach, New Technology Group 5 (ICD-10-PCS; principal; 2021-04-17)
DX: U07.1 COVID-19 (principal); J44.9 Chronic obstructive pulmonary disease, unspecified; J12.82 Pneumonia due to coronavirus disease 2019; J44.1 Chronic obstructive pulmonary disease with (acute) exacerbation; I48.20 Chronic atrial fibrillation, unspecified; G47.33 Obstructive sleep apnea (adult) (pediatric); E66.9 Obesity, unspecified; G47.30 Sleep apnea, unspecified; K21.9 Gastro-esophageal reflux disease without esophagitis; E78.00 Pure hypercholesterolemia, unspecified; I10 Essential (primary) hypertension; Z99.81 Dependence on supplemental oxygen; Z79.01 Long term (current) use of anticoagulants; F10.21 Alcohol dependence, in remission; Z88.6 Allergy status to analgesic agent; Z88.8 Allergy status to other drugs, medicaments and biological substances; Z79.899 Other long term (current) drug therapy; J30.9 Allergic rhinitis, unspecified; Z79.82 Long term (current) use of aspirin; H52.4 Presbyopia; Z79.51 Long term (current) use of inhaled steroids; H52.10 Myopia, unspecified eye; I25.10 Atherosclerotic heart disease of native coronary artery without angina pectoris; M54.5 Low back pain; M19.90 Unspecified osteoarthritis, unspecified site; G89.4 Chronic pain syndrome; F41.9 Anxiety disorder, unspecified; F32.9 Major depressive disorder, single episode, unspecified; E66.01 Morbid (severe) obesity due to excess calories; G47.00 Insomnia, unspecified; Z98.49 Cataract extraction status, unspecified eye; Z98.890 Other specified postprocedural states; Z90.710 Acquired absence of both cervix and uterus; Z98.51 Tubal ligation status; Z96.659 Presence of unspecified artificial knee joint
CPT/HCPCS: 36415; 71045; 80048; 80053; 80076; 81001; 82550; 82728; 83605; 83615; 83735; 83880; 84100; 84145; 84484; 85025; 85379; 85610; 85730; 86140; 87040; 87070; 87205; 87899; 96374; 96375; 99285-25; A9270-GY; J0696; J1100; J1650; J2930; J7050; J8540; U0002

== ENCOUNTER 2021-12-08 18:47 | Emergency (ER) | payer MEDICARE, OTHER ==
[2021-12-08] MEDS ORDERED: Albuterol/Ipratropium 3.0-0.5 MG/3 ML Neb Soln NEB ONE (19:24)
[2021-12-08 20:15] LABS: ANION GAP 11.8 mmol/L (5-15)
[2021-12-08] MEDS ORDERED: Dexamethasone 4 MG/ML SDV IVPUSH ONE (20:20)
[2021-12-08] MEDS ORDERED: methylPREDNISolone Acetate 40 MG/ML SDV IM ONE (20:20)
[2021-12-08] MEDS ORDERED: Azithromycin 250 MG Tab PO SCH (20:30)
[2021-12-08 20:36] LABS: CORONAVIRUS COVID-19 NAA NEGATIVE (NEGATIVE)
[2021-12-09 02:21] VITALS: BP 112/80; PULSE 68
== END 2021-12-08 21:15 | disposition home or self-care (01) ==
LOC: VM.ED 18:47
DX: J44.1 Chronic obstructive pulmonary disease with (acute) exacerbation (principal); I10 Essential (primary) hypertension; K21.9 Gastro-esophageal reflux disease without esophagitis; Z79.899 Other long term (current) drug therapy; Z20.822 Contact with and (suspected) exposure to COVID-19; Z88.8 Allergy status to other drugs, medicaments and biological substances
CPT/HCPCS: 0240U; 71045; 80048; 85025; 85610; 93005; 93010; 94640; 96372; 96374; 99284; 99285-25; A9270-GY; J1030; J1100; J7620-GY

== ENCOUNTER 2022-10-04 19:51 | Emergency (ER) | payer MEDICARE, OTHER ==
[2022-10-04] MEDS: Acetaminophen/HYDROcodone 325-5 MG Tab PO ONE (20:11)
[2022-10-04] MEDS: Ondansetron 4 MG Tab.DIS PO ONE (20:11)
[2022-10-04 21:24] VITALS: BP 148/79; PULSE 95
[2022-10-04] MEDS: cefTRIAXone 1 GM, Lidocaine 1% 2.1 ML IM ONE ×2 (21:29)
[2022-10-04] MEDS: Take Home: Acetaminophen/HYDROcodone 325-5 MG, 5 Tab Pack PO ONE (21:35)
[2022-10-04] MEDS: Take Home: Ondansetron 4 MG Tab.DIS, 5 Tab Pack PO ONE (21:35)
== END 2022-10-04 21:40 | disposition home or self-care (01) ==
LOC: VM.ED 19:51
DX: N39.0 Urinary tract infection, site not specified (principal); G56.02 Carpal tunnel syndrome, left upper limb; I25.10 Atherosclerotic heart disease of native coronary artery without angina pectoris; E78.00 Pure hypercholesterolemia, unspecified; I10 Essential (primary) hypertension; E66.9 Obesity, unspecified; Z68.43 Body mass index [BMI] 50.0-59.9, adult; Z88.6 Allergy status to analgesic agent; Z88.8 Allergy status to other drugs, medicaments and biological substances; Z79.899 Other long term (current) drug therapy; Z79.01 Long term (current) use of anticoagulants; Z79.82 Long term (current) use of aspirin; Z86.16 Personal history of COVID-19; Z90.710 Acquired absence of both cervix and uterus
CPT/HCPCS: 73130-LT; 81001; 87086; 87088; 87186; 93005; 93010; 96372; 99284; A9270-GY; J0696; J3490; Q0162

== ENCOUNTER 2022-10-05 12:22 | Inpatient (IN) | payer MEDICARE, OTHER ==
[2022-10-05] MEDS ORDERED: Sodium Chloride 0.9% 10 ML Syringe FLUSH PRN (12:24)
[2022-10-05 13:10] LABS: PCO2 ARTERIAL,POC 35 mmHg (35-48)
[2022-10-05] MEDS ORDERED: cefTRIAXone 2 GM Vial IVPUSH ONE (13:30)
[2022-10-05 13:35] LABS: PTT,PARTIAL THROMBOPLSTIN TIME 38.6 SEC (20.5-30.9)
[2022-10-05 13:44] LABS: CHLORIDE,CL 93 mmol/L (98-107)
[2022-10-05 13:45] LABS: ANION GAP 11.4 mmol/L (5-15); ESTIMATED GFR 57 mL/min (>=60); SODIUM,NA 128 mmol/L (136-145)
[2022-10-05 13:48] LABS: CORONAVIRUS COVID-19 NAA NEGATIVE (NEGATIVE); RESPIRATORY SYNCYTIAL VIR NAA NEGATIVE (NEGATIVE)
[2022-10-05] MEDS ORDERED: Iopamidol 755 Mg/ML 100 ML Bottle IVPUSH ONE (13:56)
[2022-10-05] MEDS ORDERED: Sodium Chloride 0.9% 1,000 ML IV SCH ×2 (14:00→17:00)
[2022-10-05] MEDS ORDERED: LORazepam 2 MG/ML SDV IVPUSH ONE (14:06)
[2022-10-05 16:15] LABS: ANION GAP 13.4 mmol/L (5-15)
[2022-10-05] MEDS: Acetaminophen 325 MG Tab PO PRN (18:24)
[2022-10-05] MEDS: Albuterol/Ipratropium 3.0-0.5 MG/3 ML Neb Soln NEB SCH ×2 (18:28→19:59)
[2022-10-05] MEDS: Warfarin 2.5 MG Tab PO SCH (19:58)
[2022-10-05] MEDS: Simvastatin 20 MG Tab PO SCH (19:59)
[2022-10-05] MEDS: traZODone 50 MG Tab PO SCH (19:59)
[2022-10-05] MEDS: Aspirin 81 MG Tab.EC PO SCH (19:59)
[2022-10-06] MEDS: Omeprazole 20 MG Cap.CR PO SCH (06:01)
[2022-10-06 07:17] LABS: ANION GAP 11.3 mmol/L (5-15)
[2022-10-06] MEDS: Metoprolol Succinate 50 MG Tab.ER PO SCH (08:26)
[2022-10-06] MEDS: Albuterol/Ipratropium 3.0-0.5 MG/3 ML Neb Soln NEB SCH ×5 (08:26→20:21)
[2022-10-06] MEDS: Magnesium Oxide 400 MG Tab PO SCH (08:34)
[2022-10-06] MEDS: Furosemide 20 MG Tab PO SCH (08:34)
[2022-10-06] MEDS: FLUoxetine 20 MG Cap PO SCH (08:35)
[2022-10-06] MEDS: cefTRIAXone 2 GM Vial IVPUSH SCH (08:35)
[2022-10-06] MEDS ORDERED: Warfarin 2.5 MG Tab PO SCH (09:00)
[2022-10-06] MEDS: Polyethylene Glycol 3350 Powder 17 GM Packet PO SCH (10:22)
[2022-10-06] MEDS: Acetaminophen 325 MG Tab PO PRN ×2 (10:24→19:27)
[2022-10-06] MEDS: Warfarin 2.5 MG Tab PO SCH (19:28)
[2022-10-06] MEDS: Aspirin 81 MG Tab.EC PO SCH ×2 (19:29→20:21)
[2022-10-06] MEDS: Simvastatin 20 MG Tab PO SCH ×2 (19:29→20:21)
[2022-10-06] MEDS: traZODone 50 MG Tab PO SCH ×2 (19:29→20:21)
[2022-10-07] MEDS: Acetaminophen 325 MG Tab PO PRN ×3 (03:56→20:28)
[2022-10-07] MEDS: Omeprazole 20 MG Cap.CR PO SCH (06:10)
[2022-10-07 07:18] LABS: ANION GAP 11.5 mmol/L (5-15)
[2022-10-07] MEDS: Furosemide 20 MG Tab PO SCH (10:57)
[2022-10-07] MEDS: FLUoxetine 20 MG Cap PO SCH (10:58)
[2022-10-07] MEDS: Magnesium Oxide 400 MG Tab PO SCH (10:58)
[2022-10-07] MEDS: Polyethylene Glycol 3350 Powder 17 GM Packet PO SCH (10:59)
[2022-10-07] MEDS: cefTRIAXone 2 GM Vial IVPUSH SCH (11:00)
[2022-10-07] MEDS: Metoprolol Succinate 50 MG Tab.ER PO SCH (11:02)
[2022-10-07] MEDS: Albuterol/Ipratropium 3.0-0.5 MG/3 ML Neb Soln NEB SCH ×4 (11:08→20:27)
[2022-10-07] MEDS: Simvastatin 20 MG Tab PO SCH (20:27)
[2022-10-07] MEDS: traZODone 50 MG Tab PO SCH (20:28)
[2022-10-07] MEDS: Warfarin 2.5 MG Tab PO SCH (20:28)
[2022-10-07] MEDS: Aspirin 81 MG Tab.EC PO SCH (20:28)
[2022-10-08] MEDS: Omeprazole 20 MG Cap.CR PO SCH (06:43)
[2022-10-08 07:17] LABS: ANION GAP 10.5 mmol/L (5-15)
[2022-10-08] MEDS: Magnesium Oxide 400 MG Tab PO SCH (09:45)
[2022-10-08] MEDS: FLUoxetine 20 MG Cap PO SCH (09:45)
[2022-10-08] MEDS: Furosemide 20 MG Tab PO SCH (09:46)
[2022-10-08] MEDS: Polyethylene Glycol 3350 Powder 17 GM Packet PO SCH (09:46)
[2022-10-08] MEDS: Albuterol/Ipratropium 3.0-0.5 MG/3 ML Neb Soln NEB SCH (09:48)
[2022-10-08] MEDS: cefTRIAXone 2 GM Vial IVPUSH SCH (10:02)
[2022-10-08 10:07] VITALS: BP 142/97; PULSE 67
[2022-10-08] MEDS: Acetaminophen 325 MG Tab PO PRN (10:09)
[2022-10-08] MEDS ORDERED: [UNRECOGNIZED DRUG - REMARK] SCH (10:15)
[2022-10-08] MEDS: Metoprolol Succinate 50 MG Tab.ER PO SCH (10:18)
[2022-10-08] MEDS ORDERED: Warfarin 5 MG Tab PO ONE (21:00)
[2022-10-09] MEDS ORDERED: Warfarin 2.5 MG Tab PO SCH (21:00)
[2022-10-11] MEDS ORDERED: Warfarin 2.5 MG Tab PO SCH (20:00)
== END 2022-10-08 12:32 | disposition swing bed (61) | DRG 603 ==
LOC: VM.ED 12:22 → VM.MS 14:27
PROVIDERS: ADMIT Family Medicine; ATTEND Family Medicine
DX: N39.0 Urinary tract infection, site not specified (principal); L03.115 Cellulitis of right lower limb; E87.1 Hypo-osmolality and hyponatremia; I48.19 Other persistent atrial fibrillation; I38 Endocarditis, valve unspecified; J96.11 Chronic respiratory failure with hypoxia; Z68.43 Body mass index [BMI] 50.0-59.9, adult; R31.9 Hematuria, unspecified; N18.30 Chronic kidney disease, stage 3 unspecified; Z66 Do not resuscitate; K59.00 Constipation, unspecified; Z20.822 Contact with and (suspected) exposure to COVID-19; I48.20 Chronic atrial fibrillation, unspecified; I12.9 Hypertensive chronic kidney disease with stage 1 through stage 4 chronic kidney disease, or unspecified chronic kidney disease; I11.0 Hypertensive heart disease with heart failure; Z96.659 Presence of unspecified artificial knee joint; Z96.619 Presence of unspecified artificial shoulder joint; F41.8 Other specified anxiety disorders; I50.32 Chronic diastolic (congestive) heart failure; B96.20 Unspecified Escherichia coli [E. coli] as the cause of diseases classified elsewhere; J45.40 Moderate persistent asthma, uncomplicated; G47.33 Obstructive sleep apnea (adult) (pediatric); M19.90 Unspecified osteoarthritis, unspecified site; J45.909 Unspecified asthma, uncomplicated; E78.5 Hyperlipidemia, unspecified; I25.10 Atherosclerotic heart disease of native coronary artery without angina pectoris; Z79.52 Long term (current) use of systemic steroids; E66.01 Morbid (severe) obesity due to excess calories; K21.9 Gastro-esophageal reflux disease without esophagitis; Z88.8 Allergy status to other drugs, medicaments and biological substances; Z86.16 Personal history of COVID-19; Z98.42 Cataract extraction status, left eye; Z98.41 Cataract extraction status, right eye; Z90.89 Acquired absence of other organs; Z90.710 Acquired absence of both cervix and uterus; Z90.49 Acquired absence of other specified parts of digestive tract; Z98.51 Tubal ligation status; Z98.890 Other specified postprocedural states; Z87.891 Personal history of nicotine dependence; G89.4 Chronic pain syndrome; Z99.81 Dependence on supplemental oxygen; Z79.01 Long term (current) use of anticoagulants; Z79.82 Long term (current) use of aspirin; Z79.899 Other long term (current) drug therapy
CPT/HCPCS: 0241U; 36415; 36600; 71045; 73600-RT; 80048; 80053; 82803; 83605; 83735; 83880; 84100; 84484; 84550; 85025; 85379; 85610; 85730; 86140; 87040; 93005; 93010; 94640; 94760; 96374; 97116-GP; 97162-GP; 97165-GO; 97535-GO; 99284; 99285-25; A9270-GY; J0696; J3490; J7030; J7620-GY

== ENCOUNTER 2022-10-08 11:20 | Inpatient (IN) | payer MEDICARE, OTHER ==
[2022-10-08] MEDS ORDERED: [UNRECOGNIZED DRUG - REMARK] SCH (14:03)
[2022-10-08] MEDS: Cephalexin 500 MG Cap PO SCH ×2 (17:18→20:27)
[2022-10-08] MEDS: Albuterol/Ipratropium 3.0-0.5 MG/3 ML Neb Soln NEB SCH ×2 (17:19→20:27)
[2022-10-08] MEDS: Aspirin 81 MG Tab.EC PO SCH (20:27)
[2022-10-08] MEDS: Simvastatin 20 MG Tab PO SCH (20:28)
[2022-10-08] MEDS: traZODone 50 MG Tab PO SCH (20:28)
[2022-10-08] MEDS: Acetaminophen 325 MG Tab PO PRN (20:28)
[2022-10-08] MEDS ORDERED: Warfarin 5 MG Tab PO ONE (21:00)
[2022-10-09] MEDS: Omeprazole 20 MG Cap.CR PO SCH (06:54)
[2022-10-09] MEDS: Albuterol/Ipratropium 3.0-0.5 MG/3 ML Neb Soln NEB SCH ×4 (06:54→20:40)
[2022-10-09] MEDS: Magnesium Oxide 400 MG Tab PO SCH (08:09)
[2022-10-09] MEDS: Cephalexin 500 MG Cap PO SCH ×4 (08:09→20:40)
[2022-10-09] MEDS: Furosemide 20 MG Tab PO SCH (08:09)
[2022-10-09] MEDS: FLUoxetine 20 MG Cap PO SCH (08:10)
[2022-10-09] MEDS: Metoprolol Succinate 50 MG Tab.ER PO SCH (08:10)
[2022-10-09] MEDS: Polyethylene Glycol 3350 Powder 17 GM Packet PO SCH (08:11)
[2022-10-09] MEDS: Acetaminophen 325 MG Tab PO PRN ×2 (08:14→20:40)
[2022-10-09] MEDS ORDERED: Polyethylene Glycol 3350 Powder 17 GM Packet PO SCH (09:00)
[2022-10-09] MEDS: Aspirin 81 MG Tab.EC PO SCH (20:40)
[2022-10-09] MEDS: traZODone 50 MG Tab PO SCH (20:40)
[2022-10-09] MEDS: Warfarin 2.5 MG Tab PO SCH (20:41)
[2022-10-09] MEDS: Simvastatin 20 MG Tab PO SCH (20:41)
[2022-10-10] MEDS: Omeprazole 20 MG Cap.CR PO SCH (06:50)
[2022-10-10] MEDS: Albuterol/Ipratropium 3.0-0.5 MG/3 ML Neb Soln NEB SCH ×4 (06:50→20:51)
[2022-10-10] MEDS: FLUoxetine 20 MG Cap PO SCH (08:54)
[2022-10-10] MEDS: Metoprolol Succinate 50 MG Tab.ER PO SCH (08:54)
[2022-10-10] MEDS: Magnesium Oxide 400 MG Tab PO SCH (08:54)
[2022-10-10] MEDS: Furosemide 20 MG Tab PO SCH (08:54)
[2022-10-10] MEDS: Cephalexin 500 MG Cap PO SCH ×4 (08:54→20:50)
[2022-10-10] MEDS: Acetaminophen 325 MG Tab PO PRN ×2 (08:55→20:50)
[2022-10-10] MEDS: Polyethylene Glycol 3350 Powder 17 GM Packet PO SCH (08:56)
[2022-10-10] MEDS: Warfarin 2.5 MG Tab PO SCH (20:50)
[2022-10-10] MEDS: traZODone 50 MG Tab PO SCH (20:50)
[2022-10-10] MEDS: Simvastatin 20 MG Tab PO SCH (20:51)
[2022-10-10] MEDS: Aspirin 81 MG Tab.EC PO SCH (20:51)
[2022-10-11] MEDS: Omeprazole 20 MG Cap.CR PO SCH (06:00)
[2022-10-11] MEDS: Albuterol/Ipratropium 3.0-0.5 MG/3 ML Neb Soln NEB SCH ×4 (07:15→20:40)
[2022-10-11] MEDS: FLUoxetine 20 MG Cap PO SCH (10:11)
[2022-10-11] MEDS: Furosemide 20 MG Tab PO SCH (10:11)
[2022-10-11] MEDS: Magnesium Oxide 400 MG Tab PO SCH (10:11)
[2022-10-11] MEDS: Metoprolol Succinate 50 MG Tab.ER PO SCH (10:12)
[2022-10-11] MEDS: Cephalexin 500 MG Cap PO SCH ×4 (10:12→20:38)
[2022-10-11] MEDS: Polyethylene Glycol 3350 Powder 17 GM Packet PO SCH (10:13)
[2022-10-11] MEDS: Acetaminophen 325 MG Tab PO PRN ×2 (10:20→22:13)
[2022-10-11] MEDS: Aspirin 81 MG Tab.EC PO SCH (20:38)
[2022-10-11] MEDS: Simvastatin 20 MG Tab PO SCH (20:40)
[2022-10-11] MEDS: traZODone 50 MG Tab PO SCH (20:40)
[2022-10-11] MEDS ORDERED: Warfarin 5 MG Tab PO SCH (21:00)
[2022-10-12] MEDS: Omeprazole 20 MG Cap.CR PO SCH (06:03)
[2022-10-12] MEDS: Albuterol/Ipratropium 3.0-0.5 MG/3 ML Neb Soln NEB SCH ×4 (07:04→20:04)
[2022-10-12] MEDS: FLUoxetine 20 MG Cap PO SCH (09:40)
[2022-10-12] MEDS: Furosemide 20 MG Tab PO SCH (09:40)
[2022-10-12] MEDS: Magnesium Oxide 400 MG Tab PO SCH (09:40)
[2022-10-12] MEDS: Polyethylene Glycol 3350 Powder 17 GM Packet PO SCH (09:41)
[2022-10-12] MEDS: Metoprolol Succinate 50 MG Tab.ER PO SCH (09:41)
[2022-10-12] MEDS: Acetaminophen 325 MG Tab PO PRN (20:04)
[2022-10-12] MEDS: traZODone 50 MG Tab PO SCH (20:05)
[2022-10-12] MEDS: Warfarin 2.5 MG Tab PO SCH (20:05)
[2022-10-12] MEDS: Aspirin 81 MG Tab.EC PO SCH (20:05)
[2022-10-12] MEDS: Simvastatin 20 MG Tab PO SCH (20:05)
[2022-10-13] MEDS: Albuterol/Ipratropium 3.0-0.5 MG/3 ML Neb Soln NEB SCH ×4 (06:07→20:02)
[2022-10-13] MEDS: Omeprazole 20 MG Cap.CR PO SCH (06:07)
[2022-10-13] MEDS: Furosemide 20 MG Tab PO SCH (10:33)
[2022-10-13] MEDS: Polyethylene Glycol 3350 Powder 17 GM Packet PO SCH ×2 (10:33→10:44)
[2022-10-13] MEDS: Metoprolol Succinate 50 MG Tab.ER PO SCH (10:34)
[2022-10-13] MEDS: FLUoxetine 20 MG Cap PO SCH (10:39)
[2022-10-13] MEDS: Magnesium Oxide 400 MG Tab PO SCH (10:39)
[2022-10-13] MEDS: Acetaminophen 325 MG Tab PO PRN ×2 (10:53→20:01)
[2022-10-13] MEDS: Aspirin 81 MG Tab.EC PO SCH (20:01)
[2022-10-13] MEDS: traZODone 50 MG Tab PO SCH (20:02)
[2022-10-13] MEDS: Simvastatin 20 MG Tab PO SCH (20:02)
[2022-10-13] MEDS: Warfarin 2.5 MG Tab PO SCH (20:02)
[2022-10-14] MEDS: Omeprazole 20 MG Cap.CR PO SCH (06:42)
[2022-10-14] MEDS: Albuterol/Ipratropium 3.0-0.5 MG/3 ML Neb Soln NEB SCH ×4 (06:42→20:06)
[2022-10-14] MEDS: FLUoxetine 20 MG Cap PO SCH (10:05)
[2022-10-14] MEDS: Furosemide 20 MG Tab PO SCH (10:05)
[2022-10-14] MEDS: Magnesium Oxide 400 MG Tab PO SCH (10:06)
[2022-10-14] MEDS: Metoprolol Succinate 50 MG Tab.ER PO SCH (10:06)
[2022-10-14] MEDS: Polyethylene Glycol 3350 Powder 17 GM Packet PO SCH (10:16)
[2022-10-14] MEDS: Acetaminophen 325 MG Tab PO PRN ×2 (10:19→20:06)
[2022-10-14] MEDS: Simvastatin 20 MG Tab PO SCH (20:06)
[2022-10-14] MEDS: traZODone 50 MG Tab PO SCH (20:06)
[2022-10-14] MEDS: Warfarin 2.5 MG Tab PO SCH (20:06)
[2022-10-14] MEDS: Aspirin 81 MG Tab.EC PO SCH (20:06)
[2022-10-15 06:28] VITALS: BP 145/70; PULSE 74
[2022-10-15] MEDS: Omeprazole 20 MG Cap.CR PO SCH (06:41)
[2022-10-15] MEDS: Albuterol/Ipratropium 3.0-0.5 MG/3 ML Neb Soln NEB SCH ×3 (06:59→14:51)
[2022-10-15] MEDS: FLUoxetine 20 MG Cap PO SCH (08:21)
[2022-10-15] MEDS: Magnesium Oxide 400 MG Tab PO SCH (08:21)
[2022-10-15] MEDS: Polyethylene Glycol 3350 Powder 17 GM Packet PO SCH (08:22)
[2022-10-15] MEDS: Furosemide 20 MG Tab PO SCH (08:22)
[2022-10-15] MEDS: Metoprolol Succinate 50 MG Tab.ER PO SCH (08:23)
[2022-10-15] MEDS: Acetaminophen 325 MG Tab PO PRN (08:25)
== END 2022-10-15 17:05 | disposition home or self-care (01) | DRG 948 ==
LOC: VM.MS 12:33
PROVIDERS: ADMIT Family Medicine; ATTEND Family Medicine
DX: R53.1 Weakness (principal); L03.115 Cellulitis of right lower limb; Z68.43 Body mass index [BMI] 50.0-59.9, adult; I38 Endocarditis, valve unspecified; J96.11 Chronic respiratory failure with hypoxia; J43.9 Emphysema, unspecified; K59.00 Constipation, unspecified; I48.91 Unspecified atrial fibrillation; I25.10 Atherosclerotic heart disease of native coronary artery without angina pectoris; N18.30 Chronic kidney disease, stage 3 unspecified; F41.8 Other specified anxiety disorders; K21.9 Gastro-esophageal reflux disease without esophagitis; I12.9 Hypertensive chronic kidney disease with stage 1 through stage 4 chronic kidney disease, or unspecified chronic kidney disease; E78.5 Hyperlipidemia, unspecified; G47.33 Obstructive sleep apnea (adult) (pediatric); E66.01 Morbid (severe) obesity due to excess calories; M19.90 Unspecified osteoarthritis, unspecified site; J45.40 Moderate persistent asthma, uncomplicated; Z79.899 Other long term (current) drug therapy; Z79.01 Long term (current) use of anticoagulants; Z79.82 Long term (current) use of aspirin; Z79.52 Long term (current) use of systemic steroids
CPT/HCPCS: 36415; 85610; 94640; 94760; 95851-GO; 97110-GP; 97116-GP; 97535-GO; A9270-GY; J7620-GY

== ENCOUNTER 2023-02-15 17:05 | Inpatient (IN) | payer MEDICARE, OTHER ==
[2023-02-15] MEDS ORDERED: Furosemide 20 MG/2 ML VIAL IV ONE (18:25)
[2023-02-15] MEDS ORDERED: Albuterol/Ipratropium 3.0-0.5 MG/3 ML Neb Soln NEB PRN (19:08)
[2023-02-15] MEDS ORDERED: Polyethylene Glycol 3350 Powder 17 GM Packet PO PRN (19:08)
[2023-02-15] MEDS ORDERED: Albuterol HFA 18 Gm Inhaler INH PRN (19:08)
[2023-02-15] MEDS ORDERED: Warfarin 2.5 MG Tab PO SCH (19:15)
[2023-02-15 19:49] LABS: BASOPHILS PERCENT AUTO 0.3 % (0.2-1.2); EOSINOPHILS ABSOLUTE AUTO 0.1 x10^3/uL (0.0-0.5); EOSINOPHILS PERCENT AUTO 1.6 % (0.0-4.0); HEMATOCRIT 37.4 % (33.0-47.0); HEMOGLOBIN 12.6 g/dL (12.0-16.0); IMMATURE GRAN ABSOLUTE AUTO 0.04 x10^3/uL (0.00-0.07); LYMPHOCYTES ABSOLUTE AUTO 2.9 x10^3/uL (1.0-4.8); LYMPHOCYTES PERCENT AUTO 33.5 % (25.0-50.0); MEAN CORPUSCULAR HEMOGLOBIN 28.4 pg (26.0-32.0); MEAN CORPUSCULAR HGB CONC 33.7 g/dL (32.0-36.0); MEAN CORPUSCULAR VOLUME 84.2 fL (78.0-93.0); MONOCYTES ABSOLUTE AUTO 0.6 x10^3/uL (0.0-0.8); MONOCYTES PERCENT AUTO 7.1 % (2.0-11.0); NEUTROPHILS ABSOLUTE AUTO 4.9 x10^3/uL (1.8-7.7); PLATELET COUNT,PLT 185 x10^3/uL (130-400); RED BLOOD CELL COUNT 4.44 x10^6/uL (4.00-5.50); WHITE BLOOD CELL COUNT,WBC 8.6 x10^3/uL (4.0-10.0)
[2023-02-15 20:08] LABS: INR 1.9 (2.0-3.5); PROTHROMBIN TIME 20.2 SEC (9.5-12.2)
[2023-02-15 20:23] LABS: A/G RATIO 0.81; BILIRUBIN TOTAL 0.2 mg/dL (0.2-1.0); C-REACTIVE PROTEIN 0.9 mg/dL (<=0.9); CALCIUM 8.1 mg/dL (8.5-10.1); EST CRCL DRUG DOSING (CG) 34.3 mL/min; POTASSIUM,K 4.2 mmol/L (3.5-5.1); PROTEIN TOTAL,TP 6.7 g/dL (6.4-8.2)
[2023-02-15 20:24] LABS: ANION GAP 16.2 mmol/L (5-15)
[2023-02-15] MEDS: traZODone 50 MG Tab PO SCH (21:12)
[2023-02-15] MEDS: Simvastatin 20 MG Tab PO SCH (21:12)
[2023-02-15] MEDS: Aspirin 81 MG Tab.EC PO SCH (21:12)
[2023-02-15] MEDS ORDERED: Warfarin 2.5 MG Tab PO ONE (21:15)
[2023-02-15] MEDS ORDERED: hydrALAZINE 10 MG Tab PO ONE (21:28)
[2023-02-16] MEDS: Omeprazole 20 MG Cap.CR PO SCH (06:18)
[2023-02-16] MEDS ORDERED: Furosemide 20 MG/2 ML VIAL IV ONE (08:11)
[2023-02-16] MEDS: Metoprolol Succinate 50 MG Tab.ER PO SCH (09:20)
[2023-02-16] MEDS: FLUoxetine 20 MG Cap PO SCH (09:21)
[2023-02-16] MEDS ORDERED: Warfarin 2.5 MG Tab PO ONE (20:00)
[2023-02-16] MEDS: Simvastatin 20 MG Tab PO SCH (20:28)
[2023-02-16] MEDS: Aspirin 81 MG Tab.EC PO SCH (20:28)
[2023-02-16] MEDS: traZODone 50 MG Tab PO SCH (20:28)
[2023-02-16] MEDS: Formoterol/Mometasone 200-5 MCG 13 GM Inhaler INH SCH (20:33)
[2023-02-17] MEDS: Omeprazole 20 MG Cap.CR PO SCH (06:10)
[2023-02-17] MEDS: Formoterol/Mometasone 200-5 MCG 13 GM Inhaler INH SCH ×2 (06:10→20:51)
[2023-02-17 07:00] LABS: BASOPHILS PERCENT AUTO 0.3 % (0.2-1.2); EOSINOPHILS ABSOLUTE AUTO 0.1 x10^3/uL (0.0-0.5); HEMATOCRIT 40.6 % (33.0-47.0); HEMOGLOBIN 13.2 g/dL (12.0-16.0); IMMATURE GRAN ABSOLUTE AUTO 0.04 x10^3/uL (0.00-0.07); LYMPHOCYTES ABSOLUTE AUTO 2.5 x10^3/uL (1.0-4.8); LYMPHOCYTES PERCENT AUTO 34.6 % (25.0-50.0); MEAN CORPUSCULAR HEMOGLOBIN 27.4 pg (26.0-32.0); MEAN CORPUSCULAR HGB CONC 32.5 g/dL (32.0-36.0); MEAN CORPUSCULAR VOLUME 84.4 fL (78.0-93.0); MONOCYTES ABSOLUTE AUTO 0.5 x10^3/uL (0.0-0.8); MONOCYTES PERCENT AUTO 6.8 % (2.0-11.0); NEUTROPHILS PERCENT AUTO 55.7 % (50.0-80.0); PLATELET COUNT,PLT 207 x10^3/uL (130-400); RED BLOOD CELL COUNT 4.81 x10^6/uL (4.00-5.50); WHITE BLOOD CELL COUNT,WBC 7.1 x10^3/uL (4.0-10.0)
[2023-02-17 07:12] LABS: INR 1.9 (2.0-3.5); PROTHROMBIN TIME 20.1 SEC (9.5-12.2)
[2023-02-17 07:18] LABS: ANION GAP 13.2 mmol/L (5-15); CALCIUM 8.9 mg/dL (8.5-10.1); EST CRCL DRUG DOSING (CG) 34.3 mL/min; MAGNESIUM 1.6 mg/dL (1.8-2.4); POTASSIUM,K 4.2 mmol/L (3.5-5.1)
[2023-02-17] MEDS: Metoprolol Succinate 50 MG Tab.ER PO SCH (08:55)
[2023-02-17] MEDS: Magnesium Oxide 400 MG Tab PO SCH (08:55)
[2023-02-17] MEDS: FLUoxetine 20 MG Cap PO SCH (08:55)
[2023-02-17] MEDS: Furosemide 20 MG/2 ML VIAL IV SCH (08:57)
[2023-02-17] MEDS: traZODone 50 MG Tab PO SCH (20:50)
[2023-02-17] MEDS: Simvastatin 20 MG Tab PO SCH (20:51)
[2023-02-17] MEDS: Aspirin 81 MG Tab.EC PO SCH (20:51)
[2023-02-17] MEDS ORDERED: Warfarin 2.5 MG Tab PO SCH (21:00)
[2023-02-18] MEDS: Formoterol/Mometasone 200-5 MCG 13 GM Inhaler INH SCH (06:27)
[2023-02-18] MEDS: Omeprazole 20 MG Cap.CR PO SCH (06:27)
[2023-02-18 06:49] LABS: INR 2.1 (2.0-3.5); PROTHROMBIN TIME 21.5 SEC (9.5-12.2)
[2023-02-18 07:09] LABS: ANION GAP 11.1 mmol/L (5-15); CALCIUM 8.5 mg/dL (8.5-10.1); EST CRCL DRUG DOSING (CG) 34.3 mL/min; MAGNESIUM 1.7 mg/dL (1.8-2.4); POTASSIUM,K 4.1 mmol/L (3.5-5.1)
[2023-02-18] MEDS: Metoprolol Succinate 50 MG Tab.ER PO SCH (08:45)
[2023-02-18] MEDS: Furosemide 20 MG/2 ML VIAL IV SCH (08:45)
[2023-02-18] MEDS: Magnesium Oxide 400 MG Tab PO SCH (08:45)
[2023-02-18] MEDS: FLUoxetine 20 MG Cap PO SCH (08:45)
[2023-02-18 11:06] VITALS: PULSE 62
[2023-02-18 14:43] VITALS: BP 133/60
[2023-02-21] MEDS ORDERED: Warfarin 2.5 MG Tab PO SCH (21:00)
== END 2023-02-18 16:00 | disposition home or self-care (01) | DRG 291 ==
LOC: VM.MS 17:08
PROVIDERS: ADMIT Family Medicine; ATTEND Family Medicine
DX: I13.0 Hypertensive heart and chronic kidney disease with heart failure and stage 1 through stage 4 chronic kidney disease, or unspecified chronic kidney disease (principal); I50.33 Acute on chronic diastolic (congestive) heart failure; J96.11 Chronic respiratory failure with hypoxia; Z68.43 Body mass index [BMI] 50.0-59.9, adult; I48.20 Chronic atrial fibrillation, unspecified; I25.10 Atherosclerotic heart disease of native coronary artery without angina pectoris; J43.9 Emphysema, unspecified; F41.8 Other specified anxiety disorders; K21.9 Gastro-esophageal reflux disease without esophagitis; E78.5 Hyperlipidemia, unspecified; G47.33 Obstructive sleep apnea (adult) (pediatric); E66.01 Morbid (severe) obesity due to excess calories; M19.90 Unspecified osteoarthritis, unspecified site; N18.30 Chronic kidney disease, stage 3 unspecified; G89.4 Chronic pain syndrome; M54.50 Low back pain, unspecified; Z96.649 Presence of unspecified artificial hip joint; Z96.659 Presence of unspecified artificial knee joint; Z96.619 Presence of unspecified artificial shoulder joint; Z87.891 Personal history of nicotine dependence; Z79.51 Long term (current) use of inhaled steroids; Z98.49 Cataract extraction status, unspecified eye; Z79.01 Long term (current) use of anticoagulants; Z88.8 Allergy status to other drugs, medicaments and biological substances; Z79.899 Other long term (current) drug therapy; Z79.82 Long term (current) use of aspirin; Z82.49 Family history of ischemic heart disease and other diseases of the circulatory system
CPT/HCPCS: 36415; 71046; 80048; 80053; 83735; 83880; 85025; 85610; 86140; A9270-GY; J1940

== ENCOUNTER 2023-08-22 17:12 | Inpatient (IN) | payer MEDICARE, OTHER ==
[2023-08-22 17:54] LABS: BASOPHILS PERCENT AUTO 0.4 % (0.2-1.2); EOSINOPHILS ABSOLUTE AUTO 0.3 x10^3/uL (0.0-0.5); EOSINOPHILS PERCENT AUTO 2.6 % (0.0-4.0); HEMATOCRIT 36.3 % (33.0-47.0); HEMOGLOBIN 11.8 g/dL (12.0-16.0); IMMATURE GRAN ABSOLUTE AUTO 0.09 x10^3/uL (0.00-0.07); LYMPHOCYTES ABSOLUTE AUTO 2.1 x10^3/uL (1.0-4.8); LYMPHOCYTES PERCENT AUTO 22.1 % (25.0-50.0); MEAN CORPUSCULAR HEMOGLOBIN 28.5 pg (26.0-32.0); MEAN CORPUSCULAR HGB CONC 32.5 g/dL (32.0-36.0); MEAN CORPUSCULAR VOLUME 87.7 fL (78.0-93.0); MONOCYTES ABSOLUTE AUTO 0.7 x10^3/uL (0.0-0.8); MONOCYTES PERCENT AUTO 7.3 % (2.0-11.0); NEUTROPHILS ABSOLUTE AUTO 6.3 x10^3/uL (1.8-7.7); NEUTROPHILS PERCENT AUTO 66.7 % (50.0-80.0); PLATELET COUNT,PLT 202 x10^3/uL (130-400); RED BLOOD CELL COUNT 4.14 x10^6/uL (4.00-5.50); WHITE BLOOD CELL COUNT,WBC 9.5 x10^3/uL (4.0-10.0)
[2023-08-22 18:11] LABS: INR 2.6 (0.9-1.1); PROTHROMBIN TIME 27.1 SEC (9.5-12.2)
[2023-08-22 18:23] LABS: A/G RATIO 0.71; ALANINE AMINOTRANSFERASE,ALT 40 U/L (14-59); ALBUMIN 2.9 g/dL (3.4-5.0); ALKALINE PHOSPHATASE 90 U/L (46-116); ANION GAP 14.1 mmol/L (5-15); ASPARTATE AMNIOTRANSFERASE,AST 28 U/L (15-37); BILIRUBIN TOTAL 0.2 mg/dL (0.2-1.0); BLOOD UREA NITROGEN,BUN 18 mg/dL (7-18); C-REACTIVE PROTEIN 5.46 mg/dL (<=0.50); CALCIUM 8.9 mg/dL (8.5-10.1); CARBON DIOXIDE,CO2 29 mmol/L (21-32); CHLORIDE,CL 102 mmol/L (98-107); CREATININE 1.2 mg/dL (0.55-1.02); ESTIMATED GFR 45 mL/min (>=60); GLUCOSE RANDOM 120 mg/dL (70-99); POTASSIUM,K 4.1 mmol/L (3.5-5.1); PRO B-TYPE NATRIUR PEPT,BNPPRO 1595 pg/mL (<=450); SODIUM,NA 141 mmol/L (136-145)
[2023-08-22 18:36] LABS: CORONAVIRUS COVID-19 NAA NEGATIVE (NEGATIVE); INFLUENZA A NAA NEGATIVE (NEGATIVE); INFLUENZA B NAA NEGATIVE (NEGATIVE); RESPIRATORY SYNCYTIAL VIR NAA NEGATIVE (NEGATIVE)
[2023-08-22] MEDS ORDERED: Furosemide 40 MG/4 ML VIAL IV ONE (18:41)
[2023-08-22] MEDS ORDERED: cefTRIAXone 1 GM Vial IVPUSH ONE (18:41)
[2023-08-22] MEDS ORDERED: Warfarin 2 MG Tab PO ONE (20:14)
[2023-08-22] MEDS: Arformoterol 15 MCG/2 ML Neb Soln NEB SCH (21:27)
[2023-08-22] MEDS: Albuterol/Ipratropium 3.0-0.5 MG/3 ML Neb Soln NEB PRN (21:27)
[2023-08-22] MEDS: Doxycycline Monohydrate 100 MG Cap PO SCH (21:28)
[2023-08-22] MEDS: Aspirin 81 MG Tab.Chew PO SCH (21:28)
[2023-08-22] MEDS: Simvastatin 20 MG Tab PO SCH (21:32)
[2023-08-22] MEDS: traZODone 50 MG Tab PO SCH (21:32)
[2023-08-22] MEDS: methylPREDNISolone Sodium Succinate 40 MG/1 ML SDV IVPUSH SCH (21:33)
[2023-08-22] MEDS: Acetaminophen 325 MG Tab PO PRN (22:59)
[2023-08-23] MEDS: Arformoterol 15 MCG/2 ML Neb Soln NEB SCH ×2 (06:43→20:27)
[2023-08-23] MEDS: Albuterol/Ipratropium 3.0-0.5 MG/3 ML Neb Soln NEB PRN ×2 (06:43→20:42)
[2023-08-23 07:03] LABS: BASOPHILS PERCENT AUTO 0.3 % (0.2-1.2); HEMATOCRIT 39.2 % (33.0-47.0); HEMOGLOBIN 12.9 g/dL (12.0-16.0); IMMATURE GRAN ABSOLUTE AUTO 0.09 x10^3/uL (0.00-0.07); LYMPHOCYTES ABSOLUTE AUTO 1.1 x10^3/uL (1.0-4.8); LYMPHOCYTES PERCENT AUTO 12.1 % (25.0-50.0); MEAN CORPUSCULAR HEMOGLOBIN 28.4 pg (26.0-32.0); MEAN CORPUSCULAR HGB CONC 32.9 g/dL (32.0-36.0); MEAN CORPUSCULAR VOLUME 86.3 fL (78.0-93.0); MONOCYTES ABSOLUTE AUTO 0.1 x10^3/uL (0.0-0.8); MONOCYTES PERCENT AUTO 1.3 % (2.0-11.0); NEUTROPHILS ABSOLUTE AUTO 8.1 x10^3/uL (1.8-7.7); NEUTROPHILS PERCENT AUTO 85.3 % (50.0-80.0); PLATELET COUNT,PLT 234 x10^3/uL (130-400); RED BLOOD CELL COUNT 4.54 x10^6/uL (4.00-5.50); WHITE BLOOD CELL COUNT,WBC 9.4 x10^3/uL (4.0-10.0)
[2023-08-23 07:16] LABS: ANION GAP 15.4 mmol/L (5-15); CALCIUM 9.1 mg/dL (8.5-10.1); CREATININE 1.1 mg/dL (0.55-1.02); EST CRCL DRUG DOSING (CG) 31.19 mL/min; POTASSIUM,K 4.4 mmol/L (3.5-5.1)
[2023-08-23 07:27] LABS: INR 2.4 (0.9-1.1); PROTHROMBIN TIME 24.6 SEC (9.5-12.2)
[2023-08-23] MEDS ORDERED: Loratadine 10 MG Tab PO PRN (07:50)
[2023-08-23] MEDS ORDERED: Polyethylene Glycol 3350 Powder 17 GM Packet PO PRN (07:50)
[2023-08-23] MEDS ORDERED: Magnesium Sulfate/Water 2 GM in Premix Bag 1 BAG IV ONE (07:53)
[2023-08-23] MEDS: Doxycycline Monohydrate 100 MG Cap PO SCH ×2 (08:59→20:15)
[2023-08-23] MEDS: Magnesium Oxide 400 MG Tab PO SCH (08:59)
[2023-08-23] MEDS: Ascorbic Acid 500 MG Tab PO SCH (08:59)
[2023-08-23] MEDS: Metoprolol Succinate 50 MG Tab.ER PO SCH (09:00)
[2023-08-23] MEDS: FLUoxetine 20 MG Cap PO SCH (09:03)
[2023-08-23] MEDS: Cholecalciferol (Vitamin D3) 5,000 UNIT Tab PO SCH (09:04)
[2023-08-23] MEDS: Furosemide 40 MG/4 ML VIAL IV SCH ×3 (09:13→14:26)
[2023-08-23] MEDS: methylPREDNISolone Sodium Succinate 40 MG/1 ML SDV IVPUSH SCH ×2 (09:13→20:18)
[2023-08-23] MEDS: Fish Oil/Omega-3 Fatty Acids 1 Gm Cap PO SCH ×2 (10:52→17:34)
[2023-08-23] MEDS ORDERED: Glucagon,Human Recombinant 1 MG Vial IM PRN (14:59)
[2023-08-23] MEDS ORDERED: 50% Dextrose in Water 50 ML Syringe IVPUSH PRN (14:59)
[2023-08-23] MEDS: Insulin Glarg,Human.Rec.Analog 100 Unit/ML 10 ML Vial SUBCUT SCH (15:59)
[2023-08-23] MEDS: Aspirin 81 MG Tab.Chew PO SCH (20:14)
[2023-08-23] MEDS: traZODone 50 MG Tab PO SCH (20:14)
[2023-08-23] MEDS: Warfarin 2.5 MG Tab PO SCH (20:14)
[2023-08-23] MEDS: Simvastatin 20 MG Tab PO SCH (20:14)
[2023-08-23] MEDS: cefTRIAXone 1 GM Vial IVPUSH SCH (20:44)
[2023-08-23] MEDS: Acetaminophen 325 MG Tab PO PRN (23:06)
[2023-08-24] MEDS: Pantoprazole 40 MG Tab.CR PO SCH (06:46)
[2023-08-24] MEDS: Albuterol/Ipratropium 3.0-0.5 MG/3 ML Neb Soln NEB PRN (07:04)
[2023-08-24] MEDS: Arformoterol 15 MCG/2 ML Neb Soln NEB SCH ×2 (07:04→21:18)
[2023-08-24 07:13] LABS: BASOPHILS PERCENT AUTO 0.2 % (0.2-1.2); HEMATOCRIT 37.3 % (33.0-47.0); HEMOGLOBIN 12.2 g/dL (12.0-16.0); IMMATURE GRAN ABSOLUTE AUTO 0.16 x10^3/uL (0.00-0.07); LYMPHOCYTES ABSOLUTE AUTO 2.6 x10^3/uL (1.0-4.8); LYMPHOCYTES PERCENT AUTO 18.2 % (25.0-50.0); MEAN CORPUSCULAR HEMOGLOBIN 28.6 pg (26.0-32.0); MEAN CORPUSCULAR HGB CONC 32.7 g/dL (32.0-36.0); MEAN CORPUSCULAR VOLUME 87.6 fL (78.0-93.0); MONOCYTES ABSOLUTE AUTO 0.8 x10^3/uL (0.0-0.8); MONOCYTES PERCENT AUTO 5.6 % (2.0-11.0); NEUTROPHILS ABSOLUTE AUTO 10.8 x10^3/uL (1.8-7.7); NEUTROPHILS PERCENT AUTO 74.9 % (50.0-80.0); PLATELET COUNT,PLT 245 x10^3/uL (130-400); RED BLOOD CELL COUNT 4.26 x10^6/uL (4.00-5.50); WHITE BLOOD CELL COUNT,WBC 14.4 x10^3/uL (4.0-10.0)
[2023-08-24 07:27] LABS: CALCIUM 9.1 mg/dL (8.5-10.1); CREATININE 1.1 mg/dL (0.55-1.02); EST CRCL DRUG DOSING (CG) 31.19 mL/min; POTASSIUM,K 4.7 mmol/L (3.5-5.1)
[2023-08-24 07:28] LABS: INR 2.4 (0.9-1.1); PROTHROMBIN TIME 24.7 SEC (9.5-12.2)
[2023-08-24 07:29] LABS: ANION GAP 12.7 mmol/L (5-15)
[2023-08-24] MEDS: Furosemide 40 MG/4 ML VIAL IV SCH ×2 (08:11→13:13)
[2023-08-24] MEDS: methylPREDNISolone Sodium Succinate 40 MG/1 ML SDV IVPUSH SCH ×2 (08:13→21:17)
[2023-08-24] MEDS: FLUoxetine 20 MG Cap PO SCH (08:16)
[2023-08-24] MEDS: Ascorbic Acid 500 MG Tab PO SCH (08:17)
[2023-08-24] MEDS: Magnesium Oxide 400 MG Tab PO SCH (08:17)
[2023-08-24] MEDS: Doxycycline Monohydrate 100 MG Cap PO SCH ×2 (08:17→21:16)
[2023-08-24] MEDS: Cholecalciferol (Vitamin D3) 5,000 UNIT Tab PO SCH (08:18)
[2023-08-24] MEDS: Fish Oil/Omega-3 Fatty Acids 1 Gm Cap PO SCH ×2 (08:18→17:23)
[2023-08-24] MEDS: Metoprolol Succinate 50 MG Tab.ER PO SCH (08:19)
[2023-08-24] MEDS: Insulin Glarg,Human.Rec.Analog 100 Unit/ML 10 ML Vial SUBCUT SCH (08:21)
[2023-08-24] MEDS: Simvastatin 20 MG Tab PO SCH (21:16)
[2023-08-24] MEDS: traZODone 50 MG Tab PO SCH (21:16)
[2023-08-24] MEDS: Aspirin 81 MG Tab.Chew PO SCH (21:16)
[2023-08-24] MEDS: Warfarin 2.5 MG Tab PO SCH (21:16)
[2023-08-24] MEDS: cefTRIAXone 1 GM Vial IVPUSH SCH (21:17)
[2023-08-25 06:50] LABS: BASOPHILS PERCENT AUTO 0.1 % (0.2-1.2); HEMATOCRIT 35.8 % (33.0-47.0); HEMOGLOBIN 11.5 g/dL (12.0-16.0); LYMPHOCYTES ABSOLUTE AUTO 1.7 x10^3/uL (1.0-4.8); LYMPHOCYTES PERCENT AUTO 13.4 % (25.0-50.0); MEAN CORPUSCULAR HEMOGLOBIN 27.9 pg (26.0-32.0); MEAN CORPUSCULAR HGB CONC 32.1 g/dL (32.0-36.0); MEAN CORPUSCULAR VOLUME 86.9 fL (78.0-93.0); MONOCYTES ABSOLUTE AUTO 0.5 x10^3/uL (0.0-0.8); MONOCYTES PERCENT AUTO 3.9 % (2.0-11.0); PLATELET COUNT,PLT 247 x10^3/uL (130-400); RED BLOOD CELL COUNT 4.12 x10^6/uL (4.00-5.50); WHITE BLOOD CELL COUNT,WBC 12.3 x10^3/uL (4.0-10.0)
[2023-08-25] MEDS: Pantoprazole 40 MG Tab.CR PO SCH (06:59)
[2023-08-25 07:04] LABS: CALCIUM 8.4 mg/dL (8.5-10.1); CREATININE 1.1 mg/dL (0.55-1.02); EST CRCL DRUG DOSING (CG) 31.19 mL/min; POTASSIUM,K 4.6 mmol/L (3.5-5.1)
[2023-08-25 07:05] LABS: INR 2.2 (0.9-1.1); PROTHROMBIN TIME 22.8 SEC (9.5-12.2)
[2023-08-25] MEDS: Arformoterol 15 MCG/2 ML Neb Soln NEB SCH (07:05)
[2023-08-25 07:07] LABS: ANION GAP 13.6 mmol/L (5-15)
[2023-08-25] MEDS: Furosemide 40 MG/4 ML VIAL IV SCH ×2 (08:22→14:42)
[2023-08-25] MEDS: methylPREDNISolone Sodium Succinate 40 MG/1 ML SDV IVPUSH SCH (08:22)
[2023-08-25] MEDS: Magnesium Oxide 400 MG Tab PO SCH (08:23)
[2023-08-25] MEDS: FLUoxetine 20 MG Cap PO SCH (08:23)
[2023-08-25] MEDS: Ascorbic Acid 500 MG Tab PO SCH (08:23)
[2023-08-25] MEDS: Fish Oil/Omega-3 Fatty Acids 1 Gm Cap PO SCH (08:23)
[2023-08-25] MEDS: Metoprolol Succinate 50 MG Tab.ER PO SCH (08:23)
[2023-08-25] MEDS: Cholecalciferol (Vitamin D3) 5,000 UNIT Tab PO SCH (08:23)
[2023-08-25] MEDS: Insulin Glarg,Human.Rec.Analog 100 Unit/ML 10 ML Vial SUBCUT SCH (08:31)
[2023-08-25] MEDS: Doxycycline Monohydrate 100 MG Cap PO SCH (08:47)
[2023-08-25] MEDS ORDERED: Furosemide 40 MG Tab PO ONE (14:45)
[2023-08-25 16:22] VITALS: BP 130/62; PULSE 70
== END 2023-08-25 16:30 | disposition home or self-care (01) | DRG 193 ==
LOC: VM.ED 17:12 → VM.MS 18:45
PROVIDERS: ADMIT Internal Medicine; ATTEND Internal Medicine
DX: J18.9 Pneumonia, unspecified organism (principal); I11.0 Hypertensive heart disease with heart failure; I50.33 Acute on chronic diastolic (congestive) heart failure; I13.0 Hypertensive heart and chronic kidney disease with heart failure and stage 1 through stage 4 chronic kidney disease, or unspecified chronic kidney disease; J44.0 Chronic obstructive pulmonary disease with (acute) lower respiratory infection; J96.11 Chronic respiratory failure with hypoxia; J44.9 Chronic obstructive pulmonary disease, unspecified; E66.9 Obesity, unspecified; J44.1 Chronic obstructive pulmonary disease with (acute) exacerbation; Z68.43 Body mass index [BMI] 50.0-59.9, adult; G47.33 Obstructive sleep apnea (adult) (pediatric); I48.0 Paroxysmal atrial fibrillation; Z86.16 Personal history of COVID-19; I25.10 Atherosclerotic heart disease of native coronary artery without angina pectoris; Z20.822 Contact with and (suspected) exposure to COVID-19; Z68.44 Body mass index [BMI] 60.0-69.9, adult; N18.9 Chronic kidney disease, unspecified; E78.00 Pure hypercholesterolemia, unspecified; F32.A Depression, unspecified; F41.9 Anxiety disorder, unspecified; M54.50 Low back pain, unspecified; G89.4 Chronic pain syndrome; K21.9 Gastro-esophageal reflux disease without esophagitis; R73.9 Hyperglycemia, unspecified; T38.0X5A Adverse effect of glucocorticoids and synthetic analogues, initial encounter; E78.5 Hyperlipidemia, unspecified; M19.90 Unspecified osteoarthritis, unspecified site; E66.01 Morbid (severe) obesity due to excess calories; G47.00 Insomnia, unspecified; Z87.891 Personal history of nicotine dependence; Z11.52 Encounter for screening for COVID-19; Z88.8 Allergy status to other drugs, medicaments and biological substances; Z79.899 Other long term (current) drug therapy; Z79.01 Long term (current) use of anticoagulants; Z79.82 Long term (current) use of aspirin; Z98.890 Other specified postprocedural states; Z98.51 Tubal ligation status; Z90.49 Acquired absence of other specified parts of digestive tract; Z90.710 Acquired absence of both cervix and uterus; Z98.49 Cataract extraction status, unspecified eye; Z79.51 Long term (current) use of inhaled steroids; Z87.440 Personal history of urinary (tract) infections
CPT/HCPCS: 0241U; 36415; 71046; 80048; 80053; 82947; 83735; 83880; 84484; 85025; 85610; 86140; 87070; 87205; 94640; 94668; 94760; 97116-GP; 97161-GP; 97165-GO; 97535-GO; 99284; 99285; A9270-GY; J0696; J1815-GY; J1940; J2920; J3475; J3490; J7620-GY

== ENCOUNTER 2024-10-28 18:56 | Emergency (ER) | payer MEDICARE, OTHER ==
[2024-10-28] MEDS ORDERED: Sodium Chloride 0.9% 10 ML Syringe FLUSH PRN (19:12)
[2024-10-28 19:35] LABS: BASOPHILS PERCENT AUTO 0.2 % (0.2-1.2); EOSINOPHILS PERCENT AUTO 0.4 % (0.0-4.0); HEMOGLOBIN 10.2 g/dL (12.0-16.0); IMMATURE GRAN ABSOLUTE AUTO 0.14 x10^3/uL (0.00-0.07); LYMPHOCYTES ABSOLUTE AUTO 1.9 x10^3/uL (1.0-4.8); LYMPHOCYTES PERCENT AUTO 17.4 % (25.0-50.0); MEAN CORPUSCULAR HEMOGLOBIN 29.7 pg (26.0-32.0); MEAN CORPUSCULAR HGB CONC 32.9 g/dL (32.0-36.0); MEAN CORPUSCULAR VOLUME 90.1 fL (78.0-93.0); MONOCYTES ABSOLUTE AUTO 0.8 x10^3/uL (0.0-0.8); MONOCYTES PERCENT AUTO 6.9 % (2.0-11.0); NEUTROPHILS ABSOLUTE AUTO 8.2 x10^3/uL (1.8-7.7); NEUTROPHILS PERCENT AUTO 73.8 % (50.0-80.0); PLATELET COUNT,PLT 235 x10^3/uL (130-400); RED BLOOD CELL COUNT 3.44 x10^6/uL (4.00-5.50); WHITE BLOOD CELL COUNT,WBC 11.1 x10^3/uL (4.0-10.0)
[2024-10-28 19:52] LABS: A/G RATIO 0.68; ALANINE AMINOTRANSFERASE,ALT 147 U/L (14-59); ALBUMIN 2.6 g/dL (3.4-5.0); ALKALINE PHOSPHATASE 145 U/L (46-116); ASPARTATE AMNIOTRANSFERASE,AST 56 U/L (15-37); BILIRUBIN TOTAL 0.6 mg/dL (0.2-1.0); BLOOD UREA NITROGEN,BUN 27 mg/dL (7-18); C-REACTIVE PROTEIN 8.97 mg/dL (<=0.50); CALCIUM 8.5 mg/dL (8.5-10.1); CARBON DIOXIDE,CO2 28 mmol/L (21-32); CHLORIDE,CL 96 mmol/L (98-107); CREATINE KINASE,CK 60 U/L (26-192); CREATININE 1.3 mg/dL (0.55-1.02); GLUCOSE RANDOM 98 mg/dL (70-99); POTASSIUM,K 4.4 mmol/L (3.5-5.1); PROTEIN TOTAL,TP 6.4 g/dL (6.4-8.2); SODIUM,NA 132 mmol/L (136-145)
[2024-10-28 19:54] LABS: ANION GAP 12.4 mmol/L (5-15); ESTIMATED GFR 41 mL/min (>=60)
[2024-10-28 23:47] VITALS: BP 120/72; PULSE 79
== END 2024-10-28 21:16 | disposition home or self-care (01) ==
LOC: VM.ED 18:56
DX: I48.91 Unspecified atrial fibrillation (principal); I13.0 Hypertensive heart and chronic kidney disease with heart failure and stage 1 through stage 4 chronic kidney disease, or unspecified chronic kidney disease; N18.9 Chronic kidney disease, unspecified; I50.9 Heart failure, unspecified; J44.89 Other specified chronic obstructive pulmonary disease; Z86.16 Personal history of COVID-19; E78.00 Pure hypercholesterolemia, unspecified; Z88.8 Allergy status to other drugs, medicaments and biological substances; Z79.82 Long term (current) use of aspirin; Z79.899 Other long term (current) drug therapy; Z79.51 Long term (current) use of inhaled steroids
CPT/HCPCS: 36415; 71045; 80053; 82550; 83605; 83880; 84484; 85025; 86140; 87040; 93005; 93010; 99284; 99285

== ENCOUNTER 2024-10-29 14:43 | Inpatient (IN) | payer MEDICARE, OTHER ==
[2024-10-29] MEDS ORDERED: Sodium Chloride 0.9% 10 ML Syringe FLUSH PRN (14:48)
[2024-10-29 15:19] LABS: BASOPHILS PERCENT AUTO 0.2 % (0.2-1.2); EOSINOPHILS PERCENT AUTO 0.3 % (0.0-4.0); HEMATOCRIT 31.1 % (33.0-47.0); HEMOGLOBIN 10.1 g/dL (12.0-16.0); IMMATURE GRAN ABSOLUTE AUTO 0.13 x10^3/uL (0.00-0.07); LYMPHOCYTES ABSOLUTE AUTO 1.8 x10^3/uL (1.0-4.8); LYMPHOCYTES PERCENT AUTO 15.8 % (25.0-50.0); MEAN CORPUSCULAR HEMOGLOBIN 29.4 pg (26.0-32.0); MEAN CORPUSCULAR HGB CONC 32.5 g/dL (32.0-36.0); MEAN CORPUSCULAR VOLUME 90.4 fL (78.0-93.0); MONOCYTES ABSOLUTE AUTO 0.7 x10^3/uL (0.0-0.8); MONOCYTES PERCENT AUTO 6.4 % (2.0-11.0); NEUTROPHILS ABSOLUTE AUTO 8.8 x10^3/uL (1.8-7.7); NEUTROPHILS PERCENT AUTO 76.2 % (50.0-80.0); PLATELET COUNT,PLT 244 x10^3/uL (130-400); RED BLOOD CELL COUNT 3.44 x10^6/uL (4.00-5.50); WHITE BLOOD CELL COUNT,WBC 11.5 x10^3/uL (4.0-10.0)
[2024-10-29] MEDS: Ondansetron 4 MG/2 ML SDV IVPUSH ONE (15:19)
[2024-10-29 15:46] LABS: A/G RATIO 0.73; ALBUMIN 2.7 g/dL (3.4-5.0); ANION GAP 16.5 mmol/L (5-15); BILIRUBIN TOTAL 0.4 mg/dL (0.2-1.0); CALCIUM 8.9 mg/dL (8.5-10.1); CREATININE 1.7 mg/dL (0.55-1.02); EST CRCL DRUG DOSING (CG) 19.83 mL/min; POTASSIUM,K 4.5 mmol/L (3.5-5.1); PROTEIN TOTAL,TP 6.4 g/dL (6.4-8.2)
[2024-10-29] MEDS: Furosemide 40 MG/4 ML VIAL IV ONE (16:00)
[2024-10-29 16:40] LABS: APPEARANCE,URINE SLIGHTLY CLOUDY (CLEAR); BILIRUBIN,URINE SMALL (NEGATIVE); COLOR,URINE YELLOW (YELLOW); GLUCOSE,URINE NEGATIVE (NEGATIVE); KETONES,URINE TRACE mg/dL (NEGATIVE); LEUKOCYTE ESTERASE,URINE TRACE (NEGATIVE); NITRITE,URINE NEGATIVE (NEGATIVE); OCCULT BLOOD,URINE NEGATIVE (NEGATIVE); PH,URINE 5.5 (5.0-8.0); PROTEIN,URINE 100 mg/dL (NEGATIVE); UROBILINOGEN,URINE 0.2 EU/dL (0.2)
[2024-10-29 16:48] LABS: BACTERIA,URINE MANY /HPF (NOT SEEN); RBC,URINE 0-5 /HPF (NOT SEEN); SQUAMOUS EPITHELIAL CELLS,UR FEW /HPF (NOT SEEN); WBC,URINE 0-5 /HPF (NOT SEEN)
[2024-10-29] MEDS ORDERED: Polyethylene Glycol 3350 Powder 17 GM Packet PO PRN (17:09)
[2024-10-29] MEDS ORDERED: Loratadine 10 MG Tab PO PRN (17:09)
[2024-10-29 17:28] LABS: INR 1.4 (0.9-1.1); PROTHROMBIN TIME 14.4 SEC (9.6-12.0)
[2024-10-29] MEDS: Magnesium Oxide 400 MG Tab PO SCH (18:15)
[2024-10-29] MEDS: Fish Oil/Omega-3 Fatty Acids 1 Gm Cap PO SCH (18:15)
[2024-10-29] MEDS: DULoxetine 20 MG Cap PO SCH (18:15)
[2024-10-29] MEDS: Albuterol/Ipratropium 3.0-0.5 MG/3 ML Neb Soln NEB PRN (18:16)
[2024-10-29] MEDS: Miconazole 2% Top Powder 45 GM Container TOP SCH (18:26)
[2024-10-29] MEDS: Warfarin 2.5 MG Tab PO SCH (18:29)
[2024-10-29] MEDS: traZODone 50 MG Tab PO SCH (21:22)
[2024-10-29] MEDS: Formoterol/Mometasone 100-5 MCG 8.8 GM Inhaler INH SCH (21:24)
[2024-10-29] MEDS: Albuterol 0.083% 2.5 MG/3 ML Neb Soln NEB SCH (21:25)
[2024-10-29] MEDS: Fluticasone Propionate Nasal Spray 9.9 ML BOTTLE NASBOTH SCH (21:25)
[2024-10-30] MEDS: Acetaminophen 325 MG Tab PO PRN (03:44)
[2024-10-30] MEDS: Omeprazole 20 MG Cap.CR PO SCH (06:24)
[2024-10-30] MEDS: hydrOXYzine HCl 10 MG Tab PO PRN (06:24)
[2024-10-30 07:03] LABS: BASOPHILS PERCENT AUTO 0.2 % (0.2-1.2); EOSINOPHILS ABSOLUTE AUTO 0.1 x10^3/uL (0.0-0.5); EOSINOPHILS PERCENT AUTO 0.5 % (0.0-4.0); HEMATOCRIT 30.8 % (33.0-47.0); IMMATURE GRAN ABSOLUTE AUTO 0.09 x10^3/uL (0.00-0.07); LYMPHOCYTES ABSOLUTE AUTO 1.6 x10^3/uL (1.0-4.8); LYMPHOCYTES PERCENT AUTO 13.9 % (25.0-50.0); MEAN CORPUSCULAR HEMOGLOBIN 29.6 pg (26.0-32.0); MEAN CORPUSCULAR HGB CONC 32.5 g/dL (32.0-36.0); MEAN CORPUSCULAR VOLUME 91.1 fL (78.0-93.0); MONOCYTES ABSOLUTE AUTO 0.6 x10^3/uL (0.0-0.8); MONOCYTES PERCENT AUTO 5.2 % (2.0-11.0); NEUTROPHILS ABSOLUTE AUTO 9.2 x10^3/uL (1.8-7.7); NEUTROPHILS PERCENT AUTO 79.4 % (50.0-80.0); PLATELET COUNT,PLT 252 x10^3/uL (130-400); RED BLOOD CELL COUNT 3.38 x10^6/uL (4.00-5.50); WHITE BLOOD CELL COUNT,WBC 11.6 x10^3/uL (4.0-10.0)
[2024-10-30 07:23] LABS: A/G RATIO 0.67; ALBUMIN 2.6 g/dL (3.4-5.0); ANION GAP 12.2 mmol/L (5-15); BILIRUBIN TOTAL 0.4 mg/dL (0.2-1.0); CALCIUM 8.7 mg/dL (8.5-10.1); CREATININE 1.4 mg/dL (0.55-1.02); EST CRCL DRUG DOSING (CG) 24.08 mL/min; POTASSIUM,K 4.2 mmol/L (3.5-5.1); PROTEIN TOTAL,TP 6.5 g/dL (6.4-8.2)
[2024-10-30] MEDS: Tiotropium Bromide 4 GM Inhalation Spray (2.5mcg/1 dose; 10 doses) INH SCH (07:43)
[2024-10-30] MEDS: Amoxicillin 500 MG Cap PO SCH (08:49)
[2024-10-30] MEDS: Zinc Sulfate 220 MG Cap PO SCH (08:49)
[2024-10-30] MEDS: Metoprolol Succinate 50 MG Tab.ER PO SCH (08:52)
[2024-10-30] MEDS: Ascorbic Acid 500 MG Tab PO SCH (08:53)
[2024-10-30] MEDS: Calcium Carbonate/Vitamin D3 1250 MG-5 MCG Tab PO SCH (08:53)
[2024-10-30] MEDS: FLUoxetine 20 MG Cap PO SCH (08:53)
[2024-10-30] MEDS: Cholecalciferol (Vitamin D3) 5,000 UNIT Tab PO SCH (08:53)
[2024-10-30] MEDS: Furosemide 40 MG/4 ML VIAL IV SCH (08:54)
[2024-10-30] MEDS ORDERED: Warfarin 2.5 MG Tab PO SCH ×2 (09:00→20:00)
[2024-10-30] MEDS: LORazepam 0.5 MG Tab PO PRN (18:29)
[2024-10-30] MEDS: Ondansetron 4 MG Tab.DIS PO PRN (19:45)
[2024-10-31 07:04] LABS: BASOPHILS PERCENT AUTO 0.1 % (0.2-1.2); EOSINOPHILS PERCENT AUTO 0.3 % (0.0-4.0); HEMATOCRIT 29.1 % (33.0-47.0); HEMOGLOBIN 9.5 g/dL (12.0-16.0); LYMPHOCYTES ABSOLUTE AUTO 1.6 x10^3/uL (1.0-4.8); LYMPHOCYTES PERCENT AUTO 14.9 % (25.0-50.0); MEAN CORPUSCULAR HEMOGLOBIN 29.6 pg (26.0-32.0); MEAN CORPUSCULAR HGB CONC 32.6 g/dL (32.0-36.0); MEAN CORPUSCULAR VOLUME 90.7 fL (78.0-93.0); MONOCYTES ABSOLUTE AUTO 0.7 x10^3/uL (0.0-0.8); MONOCYTES PERCENT AUTO 6.5 % (2.0-11.0); NEUTROPHILS ABSOLUTE AUTO 8.2 x10^3/uL (1.8-7.7); NEUTROPHILS PERCENT AUTO 77.3 % (50.0-80.0); PLATELET COUNT,PLT 225 x10^3/uL (130-400); RED BLOOD CELL COUNT 3.21 x10^6/uL (4.00-5.50); WHITE BLOOD CELL COUNT,WBC 10.6 x10^3/uL (4.0-10.0)
[2024-10-31 07:20] LABS: INR 1.3 (0.9-1.1); PROTHROMBIN TIME 13.7 SEC (9.6-12.0)
[2024-10-31 07:39] LABS: A/G RATIO 0.62; ALBUMIN 2.4 g/dL (3.4-5.0); BILIRUBIN TOTAL 0.5 mg/dL (0.2-1.0); CALCIUM 8.5 mg/dL (8.5-10.1); CREATININE 1.3 mg/dL (0.55-1.02); EST CRCL DRUG DOSING (CG) 25.93 mL/min; POTASSIUM,K 4.3 mmol/L (3.5-5.1); PROTEIN TOTAL,TP 6.3 g/dL (6.4-8.2)
[2024-10-31 07:41] LABS: ANION GAP 12.3 mmol/L (5-15)
[2024-10-31] MEDS: Warfarin 2 MG Tab PO ONE (07:50)
[2024-10-31] MEDS: Furosemide 40 MG/4 ML VIAL IV SCH (08:33)
[2024-10-31] MEDS: busPIRone 5 MG Tab PO SCH (08:40)
[2024-10-31] MEDS: Enoxaparin 40 MG/0.4 ML Syringe SUBCUT ONE (14:53)
[2024-11-01 07:10] LABS: BASOPHILS PERCENT AUTO 0.2 % (0.2-1.2); EOSINOPHILS PERCENT AUTO 0.2 % (0.0-4.0); HEMATOCRIT 29.2 % (33.0-47.0); HEMOGLOBIN 9.6 g/dL (12.0-16.0); IMMATURE GRAN ABSOLUTE AUTO 0.15 x10^3/uL (0.00-0.07); LYMPHOCYTES ABSOLUTE AUTO 1.5 x10^3/uL (1.0-4.8); LYMPHOCYTES PERCENT AUTO 11.6 % (25.0-50.0); MEAN CORPUSCULAR HEMOGLOBIN 29.6 pg (26.0-32.0); MEAN CORPUSCULAR HGB CONC 32.9 g/dL (32.0-36.0); MEAN CORPUSCULAR VOLUME 90.1 fL (78.0-93.0); MONOCYTES ABSOLUTE AUTO 0.9 x10^3/uL (0.0-0.8); NEUTROPHILS ABSOLUTE AUTO 10.3 x10^3/uL (1.8-7.7); NEUTROPHILS PERCENT AUTO 79.8 % (50.0-80.0); PLATELET COUNT,PLT 244 x10^3/uL (130-400); RED BLOOD CELL COUNT 3.24 x10^6/uL (4.00-5.50); WHITE BLOOD CELL COUNT,WBC 12.9 x10^3/uL (4.0-10.0)
[2024-11-01 07:26] LABS: INR 1.3 (0.9-1.1); PROTHROMBIN TIME 13.7 SEC (9.6-12.0)
[2024-11-01 07:46] LABS: A/G RATIO 0.59; ALBUMIN 2.4 g/dL (3.4-5.0); BILIRUBIN TOTAL 0.7 mg/dL (0.2-1.0); CALCIUM 8.5 mg/dL (8.5-10.1); CREATININE 1.2 mg/dL (0.55-1.02); EST CRCL DRUG DOSING (CG) 28.09 mL/min; PROTEIN TOTAL,TP 6.5 g/dL (6.4-8.2)
[2024-11-01] MEDS: Enoxaparin 40 MG/0.4 ML Syringe SUBCUT ONE (08:06)
[2024-11-01] MEDS: Warfarin 2 MG Tab PO ONE (11:05)
[2024-11-01] MEDS: Iopamidol 612 MG/ML 100 ML Bottle IVPUSH ONE (13:07)
[2024-11-01] MEDS: Doxycycline Monohydrate 100 MG Cap PO SCH (17:33)
[2024-11-01] MEDS: cefTRIAXone 1 GM Vial IVPUSH SCH (17:35)
[2024-11-02 07:21] LABS: BASOPHILS PERCENT AUTO 0.2 % (0.2-1.2); EOSINOPHILS PERCENT AUTO 0.3 % (0.0-4.0); HEMATOCRIT 29.2 % (33.0-47.0); HEMOGLOBIN 9.6 g/dL (12.0-16.0); IMMATURE GRAN ABSOLUTE AUTO 0.17 x10^3/uL (0.00-0.07); LYMPHOCYTES ABSOLUTE AUTO 1.8 x10^3/uL (1.0-4.8); LYMPHOCYTES PERCENT AUTO 13.9 % (25.0-50.0); MEAN CORPUSCULAR HEMOGLOBIN 29.7 pg (26.0-32.0); MEAN CORPUSCULAR HGB CONC 32.9 g/dL (32.0-36.0); MEAN CORPUSCULAR VOLUME 90.4 fL (78.0-93.0); MONOCYTES PERCENT AUTO 7.6 % (2.0-11.0); NEUTROPHILS ABSOLUTE AUTO 9.9 x10^3/uL (1.8-7.7); NEUTROPHILS PERCENT AUTO 76.7 % (50.0-80.0); PLATELET COUNT,PLT 258 x10^3/uL (130-400); RED BLOOD CELL COUNT 3.23 x10^6/uL (4.00-5.50); WHITE BLOOD CELL COUNT,WBC 12.9 x10^3/uL (4.0-10.0)
[2024-11-02 07:36] LABS: INR 1.5 (0.9-1.1); PROTHROMBIN TIME 15.9 SEC (9.6-12.0)
[2024-11-02 07:40] LABS: CALCIUM 8.6 mg/dL (8.5-10.1); CREATININE 1.2 mg/dL (0.55-1.02); EST CRCL DRUG DOSING (CG) 28.09 mL/min; POTASSIUM,K 3.9 mmol/L (3.5-5.1)
[2024-11-02 07:41] LABS: ANION GAP 9.9 mmol/L (5-15)
[2024-11-02 07:44] LABS: URIC ACID 9.5 mg/dL (2.6-6.0)
[2024-11-02 07:56] LABS: C-REACTIVE PROTEIN 33.09 mg/dL (<=0.50)
[2024-11-02 09:33] LABS: HCO3 VENOUS,POC 25 mmol/L (22-29); O2 SATURATION VENOUS,POC 76 %; PCO2 VENOUS,POC 40 mmHg (41-51); PH VENOUS,POC 7.41 pH (7.32-7.43); PO2 VENOUS,POC 40 mmHg
[2024-11-02] MEDS: Enoxaparin 40 MG/0.4 ML Syringe SUBCUT ONE (09:58)
[2024-11-02] MEDS: methylPREDNISolone Sodium Succinate 40 MG/1 ML SDV IVPUSH SCH (10:13)
[2024-11-03 08:07] LABS: BASOPHILS PERCENT AUTO 0.1 % (0.2-1.2); EOSINOPHILS PERCENT AUTO 0.1 % (0.0-4.0); HEMATOCRIT 28.8 % (33.0-47.0); HEMOGLOBIN 9.5 g/dL (12.0-16.0); IMMATURE GRAN ABSOLUTE AUTO 0.16 x10^3/uL (0.00-0.07); LYMPHOCYTES ABSOLUTE AUTO 1.4 x10^3/uL (1.0-4.8); LYMPHOCYTES PERCENT AUTO 12.6 % (25.0-50.0); MEAN CORPUSCULAR HEMOGLOBIN 29.7 pg (26.0-32.0); MONOCYTES ABSOLUTE AUTO 0.6 x10^3/uL (0.0-0.8); MONOCYTES PERCENT AUTO 5.4 % (2.0-11.0); NEUTROPHILS ABSOLUTE AUTO 8.9 x10^3/uL (1.8-7.7); NEUTROPHILS PERCENT AUTO 80.4 % (50.0-80.0); PLATELET COUNT,PLT 259 x10^3/uL (130-400); WHITE BLOOD CELL COUNT,WBC 11.1 x10^3/uL (4.0-10.0)
[2024-11-03 08:11] LABS: A/G RATIO 0.47; ALBUMIN 2.1 g/dL (3.4-5.0); BILIRUBIN TOTAL 0.4 mg/dL (0.2-1.0); CALCIUM 8.6 mg/dL (8.5-10.1); CREATININE 1.1 mg/dL (0.55-1.02); EST CRCL DRUG DOSING (CG) 30.65 mL/min; POTASSIUM,K 4.5 mmol/L (3.5-5.1); PROTEIN TOTAL,TP 6.6 g/dL (6.4-8.2)
[2024-11-03 08:16] LABS: ANION GAP 14.5 mmol/L (5-15)
[2024-11-03 08:23] LABS: INR 1.7 (0.9-1.1); PROTHROMBIN TIME 17.7 SEC (9.6-12.0)
[2024-11-04 06:02] VITALS: BP 107/50; PULSE 91
[2024-11-04 08:05] LABS: BASOPHILS PERCENT AUTO 0.1 % (0.2-1.2); EOSINOPHILS PERCENT AUTO 0.2 % (0.0-4.0); HEMATOCRIT 30.6 % (33.0-47.0); HEMOGLOBIN 10.1 g/dL (12.0-16.0); IMMATURE GRAN ABSOLUTE AUTO 0.19 x10^3/uL (0.00-0.07); LYMPHOCYTES ABSOLUTE AUTO 1.9 x10^3/uL (1.0-4.8); LYMPHOCYTES PERCENT AUTO 15.7 % (25.0-50.0); MEAN CORPUSCULAR HEMOGLOBIN 29.8 pg (26.0-32.0); MEAN CORPUSCULAR VOLUME 90.3 fL (78.0-93.0); MONOCYTES ABSOLUTE AUTO 0.9 x10^3/uL (0.0-0.8); MONOCYTES PERCENT AUTO 7.7 % (2.0-11.0); NEUTROPHILS ABSOLUTE AUTO 8.9 x10^3/uL (1.8-7.7); NEUTROPHILS PERCENT AUTO 74.7 % (50.0-80.0); PLATELET COUNT,PLT 296 x10^3/uL (130-400); RED BLOOD CELL COUNT 3.39 x10^6/uL (4.00-5.50); WHITE BLOOD CELL COUNT,WBC 11.9 x10^3/uL (4.0-10.0)
[2024-11-04 08:06] LABS: CALCIUM 8.6 mg/dL (8.5-10.1); CREATININE 1.1 mg/dL (0.55-1.02); EST CRCL DRUG DOSING (CG) 30.65 mL/min
[2024-11-04 08:37] LABS: POTASSIUM,K 4.2 mmol/L (3.5-5.1)
[2024-11-04] MEDS ORDERED: Amoxicillin/Clavulanate K 875-125 MG Tab PO SCH (21:00)
[2024-11-04] MEDS ORDERED: Furosemide 40 MG Tab PO SCH (21:00)
[2024-11-05] MEDS ORDERED: predniSONE 20 MG Tab PO SCH (09:00)
== END 2024-11-04 11:00 | disposition swing bed (61) | DRG 291 ==
LOC: VM.ED 14:43 → SUPCPDRO 14:43 → VM.MS 16:03
PROVIDERS: ADMIT Internal Medicine; ATTEND Internal Medicine
PROC: 5A09457 Assistance with Respiratory Ventilation, 24-96 Consecutive Hours, Continuous Positive Airway Pressure (ICD-10-PCS; principal; 2024-10-30)
DX: I13.0 Hypertensive heart and chronic kidney disease with heart failure and stage 1 through stage 4 chronic kidney disease, or unspecified chronic kidney disease (principal); I50.9 Heart failure, unspecified; I50.33 Acute on chronic diastolic (congestive) heart failure; I48.91 Unspecified atrial fibrillation; J96.21 Acute and chronic respiratory failure with hypoxia; J18.9 Pneumonia, unspecified organism; J44.9 Chronic obstructive pulmonary disease, unspecified; J44.1 Chronic obstructive pulmonary disease with (acute) exacerbation; E87.1 Hypo-osmolality and hyponatremia; E66.9 Obesity, unspecified; Z86.16 Personal history of COVID-19; Z96.659 Presence of unspecified artificial knee joint; N17.9 Acute kidney failure, unspecified; N39.0 Urinary tract infection, site not specified; E44.1 Mild protein-calorie malnutrition; Z68.43 Body mass index [BMI] 50.0-59.9, adult; J44.0 Chronic obstructive pulmonary disease with (acute) lower respiratory infection; G47.33 Obstructive sleep apnea (adult) (pediatric); I48.0 Paroxysmal atrial fibrillation; N18.9 Chronic kidney disease, unspecified; F10.90 Alcohol use, unspecified, uncomplicated; K21.9 Gastro-esophageal reflux disease without esophagitis; M19.90 Unspecified osteoarthritis, unspecified site; J30.2 Other seasonal allergic rhinitis; Z96.619 Presence of unspecified artificial shoulder joint; F41.8 Other specified anxiety disorders; D63.1 Anemia in chronic kidney disease; Z96.649 Presence of unspecified artificial hip joint; J30.9 Allergic rhinitis, unspecified; I25.10 Atherosclerotic heart disease of native coronary artery without angina pectoris; E78.00 Pure hypercholesterolemia, unspecified; J44.89 Other specified chronic obstructive pulmonary disease; Z96.651 Presence of right artificial knee joint; F15.90 Other stimulant use, unspecified, uncomplicated; S80.02XA Contusion of left knee, initial encounter; W06.XXXA Fall from bed, initial encounter; E66.01 Morbid (severe) obesity due to excess calories; B96.29 Other Escherichia coli [E. coli] as the cause of diseases classified elsewhere; K75.9 Inflammatory liver disease, unspecified; Y93.9 Activity, unspecified; Z98.49 Cataract extraction status, unspecified eye; Z90.710 Acquired absence of both cervix and uterus; Z99.81 Dependence on supplemental oxygen; Z88.6 Allergy status to analgesic agent; Z88.8 Allergy status to other drugs, medicaments and biological substances; Z98.890 Other specified postprocedural states; Z90.89 Acquired absence of other organs; Z79.01 Long term (current) use of anticoagulants; Z98.51 Tubal ligation status; Z86.718 Personal history of other venous thrombosis and embolism; Z79.82 Long term (current) use of aspirin; Z79.51 Long term (current) use of inhaled steroids; Z79.02 Long term (current) use of antithrombotics/antiplatelets; Z79.1 Long term (current) use of non-steroidal anti-inflammatories (NSAID); Z79.899 Other long term (current) drug therapy; Z87.440 Personal history of urinary (tract) infections; Z86.73 Personal history of transient ischemic attack (TIA), and cerebral infarction without residual deficits; Y92.003 Bedroom of unspecified non-institutional (private) residence as the place of occurrence of the external cause
CPT/HCPCS: 36415; 71045; 71046; 71260; 74177; 76881-LT; 80048; 80053; 81001; 82306; 82533; 82550; 82803; 82947; 83735; 83880; 83930; 83935; 84443; 84484; 84550; 85025; 85610; 86140; 87086; 87088; 87186; 94640; 94660; 94668; 94760; 96374; 96375; 97035-GP; 97161-GP; 97165-GO; 97530-GP; 97535-GO; 99284; 99285-25; A9270-GY; J0696; J1650; J1940; J2405; J2919; J7613-GY; J7620-GY; Q9967

== ENCOUNTER 2024-11-04 10:53 | Inpatient (IN) | payer MEDICARE, OTHER ==
[2024-11-04] MEDS ORDERED: Loratadine 10 MG Tab PO PRN (10:57)
[2024-11-04] MEDS ORDERED: Polyethylene Glycol 3350 Powder 17 GM Packet PO PRN (10:57)
[2024-11-04] MEDS: busPIRone 5 MG Tab PO SCH (14:05)
[2024-11-04] MEDS: Albuterol 0.083% 2.5 MG/3 ML Neb Soln NEB SCH (14:05)
[2024-11-04] MEDS: Fish Oil/Omega-3 Fatty Acids 1 Gm Cap PO SCH (17:50)
[2024-11-04] MEDS: Ondansetron 4 MG Tab.DIS PO PRN (20:06)
[2024-11-04] MEDS: Doxycycline Monohydrate 100 MG Cap PO SCH (20:06)
[2024-11-04] MEDS: traZODone 50 MG Tab PO SCH (20:06)
[2024-11-04] MEDS: LORazepam 0.5 MG Tab PO PRN (20:10)
[2024-11-04] MEDS: Fluticasone Propionate Nasal Spray 9.9 ML BOTTLE NASBOTH SCH (21:48)
[2024-11-04] MEDS: Formoterol/Mometasone 100-5 MCG 8.8 GM Inhaler INH SCH (21:48)
[2024-11-04] MEDS: Miconazole 2% Top Powder 45 GM Container TOP SCH (21:50)
[2024-11-05] MEDS: Furosemide 40 MG/4 ML VIAL IV ONE (00:51)
[2024-11-05] MEDS: Furosemide 20 MG/2 ML VIAL IV ONE (00:52)
[2024-11-05] MEDS: Acetaminophen 325 MG Tab PO PRN (00:58)
[2024-11-05] MEDS: hydrOXYzine HCl 10 MG Tab PO PRN (00:58)
[2024-11-05] MEDS: Albuterol/Ipratropium 3.0-0.5 MG/3 ML Neb Soln NEB PRN (00:59)
[2024-11-05] MEDS: Omeprazole 20 MG Cap.CR PO SCH (06:36)
[2024-11-05] MEDS: Tiotropium Bromide 4 GM Inhalation Spray (2.5mcg/1 dose; 10 doses) INH SCH (06:38)
[2024-11-05 07:37] LABS: BLOOD UREA NITROGEN,BUN 34 mg/dL (7-18); CALCIUM 8.6 mg/dL (8.5-10.1); CARBON DIOXIDE,CO2 30 mmol/L (21-32); CHLORIDE,CL 98 mmol/L (98-107); CREATININE 1.1 mg/dL (0.55-1.02); GLUCOSE RANDOM 106 mg/dL (70-99); POTASSIUM,K 4.2 mmol/L (3.5-5.1); SODIUM,NA 136 mmol/L (136-145)
[2024-11-05 07:39] LABS: ANION GAP 12.2 mmol/L (5-15); ESTIMATED GFR 50 mL/min (>=60)
[2024-11-05 07:45] LABS: PROTHROMBIN TIME 20.7 SEC (9.6-12.0)
[2024-11-05 07:53] LABS: BASOPHILS PERCENT AUTO 0.1 % (0.2-1.2); EOSINOPHILS ABSOLUTE AUTO 0.1 x10^3/uL (0.0-0.5); EOSINOPHILS PERCENT AUTO 0.7 % (0.0-4.0); HEMATOCRIT 29.2 % (33.0-47.0); HEMOGLOBIN 9.6 g/dL (12.0-16.0); IMMATURE GRAN ABSOLUTE AUTO 0.35 x10^3/uL (0.00-0.07); LYMPHOCYTES ABSOLUTE AUTO 1.8 x10^3/uL (1.0-4.8); MEAN CORPUSCULAR HGB CONC 32.9 g/dL (32.0-36.0); MEAN CORPUSCULAR VOLUME 91.3 fL (78.0-93.0); MONOCYTES ABSOLUTE AUTO 0.8 x10^3/uL (0.0-0.8); NEUTROPHILS ABSOLUTE AUTO 7.8 x10^3/uL (1.8-7.7); NEUTROPHILS PERCENT AUTO 71.9 % (50.0-80.0); PLATELET COUNT,PLT 284 x10^3/uL (130-400); WHITE BLOOD CELL COUNT,WBC 10.8 x10^3/uL (4.0-10.0)
[2024-11-05] MEDS: Metoprolol Succinate 50 MG Tab.ER PO SCH (08:05)
[2024-11-05] MEDS: Zinc Sulfate 220 MG Cap PO SCH (08:05)
[2024-11-05] MEDS: FLUoxetine 20 MG Cap PO SCH (08:05)
[2024-11-05] MEDS: Furosemide 40 MG Tab PO SCH (08:08)
[2024-11-05] MEDS: Cholecalciferol (Vitamin D3) 5,000 UNIT Tab PO SCH (08:08)
[2024-11-05] MEDS: Ascorbic Acid 500 MG Tab PO SCH (08:09)
[2024-11-05] MEDS: Magnesium Oxide 400 MG Tab PO SCH (08:09)
[2024-11-05] MEDS: Calcium Carbonate/Vitamin D3 1250 MG-5 MCG Tab PO SCH (08:09)
[2024-11-05] MEDS: Torsemide 20 MG Tab PO SCH (13:07)
[2024-11-05] MEDS: Warfarin 2.5 MG Tab PO SCH (17:38)
[2024-11-05] MEDS: predniSONE 20 MG Tab PO ONE (17:44)
[2024-11-05] MEDS: Amoxicillin/Clavulanate K 875-125 MG Tab PO SCH (21:00)
[2024-11-06] MEDS: predniSONE 20 MG Tab PO SCH (09:35)
[2024-11-07 07:13] LABS: BASOPHILS PERCENT AUTO 0.1 % (0.2-1.2); EOSINOPHILS ABSOLUTE AUTO 0.2 x10^3/uL (0.0-0.5); EOSINOPHILS PERCENT AUTO 1.2 % (0.0-4.0); HEMATOCRIT 32.7 % (33.0-47.0); HEMOGLOBIN 10.5 g/dL (12.0-16.0); IMMATURE GRAN ABSOLUTE AUTO 0.36 x10^3/uL (0.00-0.07); LYMPHOCYTES ABSOLUTE AUTO 1.9 x10^3/uL (1.0-4.8); LYMPHOCYTES PERCENT AUTO 11.9 % (25.0-50.0); MEAN CORPUSCULAR HEMOGLOBIN 29.3 pg (26.0-32.0); MEAN CORPUSCULAR HGB CONC 32.1 g/dL (32.0-36.0); MEAN CORPUSCULAR VOLUME 91.3 fL (78.0-93.0); MONOCYTES ABSOLUTE AUTO 0.8 x10^3/uL (0.0-0.8); MONOCYTES PERCENT AUTO 5.2 % (2.0-11.0); NEUTROPHILS ABSOLUTE AUTO 12.6 x10^3/uL (1.8-7.7); NEUTROPHILS PERCENT AUTO 79.3 % (50.0-80.0); PLATELET COUNT,PLT 306 x10^3/uL (130-400); RED BLOOD CELL COUNT 3.58 x10^6/uL (4.00-5.50); WHITE BLOOD CELL COUNT,WBC 15.9 x10^3/uL (4.0-10.0)
[2024-11-07 07:27] LABS: A/G RATIO 0.56; ALANINE AMINOTRANSFERASE,ALT 85 U/L (14-59); ALBUMIN 2.4 g/dL (3.4-5.0); ALKALINE PHOSPHATASE 145 U/L (46-116); ASPARTATE AMNIOTRANSFERASE,AST 36 U/L (15-37); BILIRUBIN TOTAL 0.4 mg/dL (0.2-1.0); BLOOD UREA NITROGEN,BUN 34 mg/dL (7-18); CALCIUM 8.7 mg/dL (8.5-10.1); CARBON DIOXIDE,CO2 35 mmol/L (21-32); CHLORIDE,CL 99 mmol/L (98-107); CREATININE 1.2 mg/dL (0.55-1.02); GLUCOSE RANDOM 100 mg/dL (70-99); POTASSIUM,K 3.7 mmol/L (3.5-5.1); PROTEIN TOTAL,TP 6.7 g/dL (6.4-8.2); SODIUM,NA 139 mmol/L (136-145)
[2024-11-07 07:28] LABS: ANION GAP 8.7 mmol/L (5-15); ESTIMATED GFR 45 mL/min (>=60)
[2024-11-07 07:29] LABS: INR 2.7 (0.9-1.1); PROTHROMBIN TIME 27.9 SEC (9.6-12.0)
[2024-11-09 07:08] LABS: BASOPHILS PERCENT AUTO 0.1 % (0.2-1.2); EOSINOPHILS ABSOLUTE AUTO 0.2 x10^3/uL (0.0-0.5); EOSINOPHILS PERCENT AUTO 1.6 % (0.0-4.0); HEMATOCRIT 32.3 % (33.0-47.0); HEMOGLOBIN 10.3 g/dL (12.0-16.0); IMMATURE GRAN ABSOLUTE AUTO 0.26 x10^3/uL (0.00-0.07); LYMPHOCYTES ABSOLUTE AUTO 1.9 x10^3/uL (1.0-4.8); LYMPHOCYTES PERCENT AUTO 13.5 % (25.0-50.0); MEAN CORPUSCULAR HEMOGLOBIN 28.7 pg (26.0-32.0); MEAN CORPUSCULAR HGB CONC 31.9 g/dL (32.0-36.0); MONOCYTES ABSOLUTE AUTO 0.8 x10^3/uL (0.0-0.8); NEUTROPHILS ABSOLUTE AUTO 10.7 x10^3/uL (1.8-7.7); NEUTROPHILS PERCENT AUTO 76.9 % (50.0-80.0); PLATELET COUNT,PLT 300 x10^3/uL (130-400); RED BLOOD CELL COUNT 3.59 x10^6/uL (4.00-5.50); WHITE BLOOD CELL COUNT,WBC 13.9 x10^3/uL (4.0-10.0)
[2024-11-09 07:29] LABS: A/G RATIO 0.55; ALBUMIN 2.3 g/dL (3.4-5.0); ANION GAP 12.5 mmol/L (5-15); BILIRUBIN TOTAL 0.4 mg/dL (0.2-1.0); CALCIUM 8.6 mg/dL (8.5-10.1); CREATININE 1.1 mg/dL (0.55-1.02); EST CRCL DRUG DOSING (CG) 30.65 mL/min; POTASSIUM,K 3.5 mmol/L (3.5-5.1); PROTEIN TOTAL,TP 6.5 g/dL (6.4-8.2)
[2024-11-09 07:37] LABS: PROTHROMBIN TIME 30.7 SEC (9.6-12.0)
[2024-11-09] MEDS: Iopamidol 755 Mg/ML 100 ML Bottle IVPUSH ONE (09:34)
[2024-11-09] MEDS: Albuterol 0.083% 2.5 MG/3 ML Neb Soln NEB SCH (10:16)
[2024-11-09] MEDS: busPIRone 5 MG Tab PO SCH (10:18)
[2024-11-09] MEDS: Furosemide 40 MG/4 ML VIAL IV ONE (11:55)
[2024-11-10] MEDS: Albuterol 0.083% 2.5 MG/3 ML Neb Soln NEB PRN (02:53)
[2024-11-10 08:52] LABS: CALCIUM 8.6 mg/dL (8.5-10.1); CREATININE 1.1 mg/dL (0.55-1.02); EST CRCL DRUG DOSING (CG) 30.65 mL/min; POTASSIUM,K 3.3 mmol/L (3.5-5.1)
[2024-11-10 08:58] LABS: ANION GAP 9.3 mmol/L (5-15)
[2024-11-10] MEDS: Spironolactone 25 MG Tab PO SCH (11:03)
[2024-11-10] MEDS: Magnesium Oxide 400 MG Tab PO SCH (12:06)
[2024-11-10] MEDS: Potassium Chloride 20 MEQ Tab.ER PO ONE (12:23)
[2024-11-10] MEDS: Furosemide 40 MG/4 ML VIAL IV SCH (12:24)
[2024-11-10] MEDS: Sodium Chloride 0.9% 10 ML Syringe FLUSH SCH (20:41)
[2024-11-11 10:52] LABS: BASOPHILS PERCENT AUTO 0.2 % (0.2-1.2); EOSINOPHILS ABSOLUTE AUTO 0.3 x10^3/uL (0.0-0.5); EOSINOPHILS PERCENT AUTO 1.8 % (0.0-4.0); HEMOGLOBIN 10.2 g/dL (12.0-16.0); IMMATURE GRAN ABSOLUTE AUTO 0.21 x10^3/uL (0.00-0.07); LYMPHOCYTES ABSOLUTE AUTO 1.5 x10^3/uL (1.0-4.8); LYMPHOCYTES PERCENT AUTO 9.7 % (25.0-50.0); MEAN CORPUSCULAR HEMOGLOBIN 28.9 pg (26.0-32.0); MEAN CORPUSCULAR HGB CONC 31.9 g/dL (32.0-36.0); MEAN CORPUSCULAR VOLUME 90.7 fL (78.0-93.0); MONOCYTES ABSOLUTE AUTO 0.8 x10^3/uL (0.0-0.8); NEUTROPHILS ABSOLUTE AUTO 12.5 x10^3/uL (1.8-7.7); NEUTROPHILS PERCENT AUTO 81.9 % (50.0-80.0); PLATELET COUNT,PLT 267 x10^3/uL (130-400); RED BLOOD CELL COUNT 3.53 x10^6/uL (4.00-5.50); WHITE BLOOD CELL COUNT,WBC 15.3 x10^3/uL (4.0-10.0)
[2024-11-11 11:15] LABS: A/G RATIO 0.49; ALBUMIN 2.1 g/dL (3.4-5.0); BILIRUBIN TOTAL 0.6 mg/dL (0.2-1.0); CREATININE 1.2 mg/dL (0.55-1.02); EST CRCL DRUG DOSING (CG) 28.09 mL/min; POTASSIUM,K 4.1 mmol/L (3.5-5.1); PROTEIN TOTAL,TP 6.4 g/dL (6.4-8.2)
[2024-11-11 11:18] LABS: ANION GAP 8.1 mmol/L (5-15)
[2024-11-11] MEDS: Furosemide 40 MG/4 ML VIAL IV SCH (14:11)
[2024-11-11] MEDS: Azithromycin 500 MG in Sodium Chloride 0.9% 250 ML IV SCH (18:59)
[2024-11-11] MEDS: Cefepime 2 GM in Sodium Chloride 0.9% 100 ML IV SCH ×2 (19:40→20:31)
[2024-11-12] MEDS: Furosemide 100 MG/10 ML SDV IV ONE (10:41)
[2024-11-12] MEDS: Iopamidol 612 MG/ML 100 ML Bottle IVPUSH ONE (11:28)
[2024-11-13] MEDS: VANCOmycin 2 GM/400 ML 2 GM in Premix Bag 1 BAG IV ONE (05:43)
[2024-11-13 07:25] VITALS: BP 158/78; PULSE 104
[2024-11-13] MEDS ORDERED: Azithromycin 250 MG Tab PO SCH (09:00)
== END 2024-11-13 06:19 | disposition short-term general hospital (02) | DRG 291 ==
LOC: VM.MS 10:57
PROVIDERS: ADMIT Nurse Practitioner Family; ATTEND Internal Medicine
DX: I13.0 Hypertensive heart and chronic kidney disease with heart failure and stage 1 through stage 4 chronic kidney disease, or unspecified chronic kidney disease (principal); I50.33 Acute on chronic diastolic (congestive) heart failure; J18.9 Pneumonia, unspecified organism; J96.21 Acute and chronic respiratory failure with hypoxia; J44.1 Chronic obstructive pulmonary disease with (acute) exacerbation; Z68.43 Body mass index [BMI] 50.0-59.9, adult; E87.1 Hypo-osmolality and hyponatremia; N17.9 Acute kidney failure, unspecified; N39.0 Urinary tract infection, site not specified; E44.1 Mild protein-calorie malnutrition; J44.0 Chronic obstructive pulmonary disease with (acute) lower respiratory infection; J30.9 Allergic rhinitis, unspecified; H66.90 Otitis media, unspecified, unspecified ear; I25.10 Atherosclerotic heart disease of native coronary artery without angina pectoris; E78.00 Pure hypercholesterolemia, unspecified; D63.1 Anemia in chronic kidney disease; G47.33 Obstructive sleep apnea (adult) (pediatric); K21.9 Gastro-esophageal reflux disease without esophagitis; M19.90 Unspecified osteoarthritis, unspecified site; F41.9 Anxiety disorder, unspecified; E87.6 Hypokalemia; F32.A Depression, unspecified; E66.9 Obesity, unspecified; N18.30 Chronic kidney disease, stage 3 unspecified; I48.0 Paroxysmal atrial fibrillation; K75.9 Inflammatory liver disease, unspecified; E83.42 Hypomagnesemia; Z96.649 Presence of unspecified artificial hip joint; Z96.659 Presence of unspecified artificial knee joint; Z98.49 Cataract extraction status, unspecified eye; Z86.16 Personal history of COVID-19; Z79.01 Long term (current) use of anticoagulants; Z98.890 Other specified postprocedural states; Z79.899 Other long term (current) drug therapy; Z88.8 Allergy status to other drugs, medicaments and biological substances
CPT/HCPCS: 36415; 36600; 71045; 71260; 71275; 80048; 80053; 82803; 83605; 83735; 83880; 85025; 85610; 93005; 94640; 94660; 94667; 94668; 94760; 97110-GO; 97110-GP; 97116-GP; 97535-GO; A9270-GY; J0456; J0692; J1940; J3372; J7050; J7512; Q3014; Q9967